=== PATIENT | male | born 1965 | race Two or more races ===

== ENCOUNTER 2020-12-17 23:44 | Emergency (ER) | payer SELFPAY ==
[~2020-12-17] VITALS: Ht 170.2 cm; Wt 64.4 kg
[2020-12-18] MEDS ORDERED: THIAMINE INJ 100 MG in SODIUM CHLORIDE 0.9% 1,000 ML IV ONE (02:30)
[2020-12-18] MEDS ORDERED: SODIUM CHLORIDE 0.9% 1,000 ML IV ONE (02:30)
[2020-12-18] MEDS ORDERED: THIAMINE 100mg/ml INJ (200mg/2ml VIAL) ONE (02:35)
[2020-12-18 03:29] LABS: Basophils # (auto) 0 10 ^3/uL (0-0.2); Eosinophils # (auto) 0 10 ^3/uL (0-0.8); Eosinophils % (auto) 0.1 % (0.0-7.0); Lymphocytes # (auto) 0.5 10 ^3/uL (0.4-5.4)
[2020-12-18 03:31] LABS: Basophils % (auto) 0.4 % (0.0-2.0); Hematocrit 45.6 % (41.0-53.0); Lymphocytes % (auto) 7.3 % (10.0-50.0); Mean Corpuscular Volume 103.1 fL (80.0-100.0); Monocytes # (auto) 0.7 10 ^3/uL (0-1.3); Monocytes % (auto) 9.3 % (0.0-12.0); Neutrophils % (auto) 82.9 % (37.0-80.0); Nucleated Red Blood Cells % 0.2 %; Platelet Count (auto) 94 10^3/uL (140-450); Red Blood Cells 4.43 10^6/uL (4.5-5.90); White Blood Cell 7.2 10^3/uL (4.4-10.8)
[2020-12-18 03:45] LABS: Urine Bacteria FEW /hpf (None Seen); Urine Blood Negative /uL (Negative); Urine Mucus FEW (None Seen); Urine Specific Gravity 1.036 (1.001-1.035); Urine WBC <1 /hpf (0 - 3)
[2020-12-18 03:57] LABS: Amphetamine Screen, Urine NEGATIVE (NEGATIVE); Barbiturate Scree,Urine NEGATIVE (NEGATIVE); Benzodiazephine Screen, Urine NEGATIVE (NEGATIVE); Cannabinoid Screen, Urine NEGATIVE (NEGATIVE); Cocaine Screen, Urine NEGATIVE (NEGATIVE); Opiate Scree,Urine NEGATIVE (NEGATIVE); Phencyclidine Screen, Urine NEGATIVE (NEGATIVE)
[2020-12-18 03:58] LABS: Albumin 3.6 g/dL (3.4-5.0); BUN/Creatinine Ratio 11.5; Magnesium 2.2 mg/dL (1.6-2.6); Potassium 4.1 mmol/L (3.5-5.1)
[2020-12-18 04:01] LABS: Bilirubin, Total 2.4 mg/dL (0.2-1.0); Total Protein 9.4 g/dL (6.4-8.2)
[2020-12-18 04:16] LABS: Salicylate < 1.7 mg/dL (2.8-20.0)
[2020-12-18 04:30] LABS: Acetaminophen < 2.0 ug/mL (10-30)
[2020-12-18] MEDS ORDERED: LORazepam 2MG/ML-1ML VIAL IV ONE (05:15)
[2020-12-18 06:00] VITALS: BP 110/74
== END 2020-12-18 06:46 | disposition home or self-care (01) ==
LOC: ER 23:44
DX: F10.232 Alcohol dependence with withdrawal with perceptual disturbance (principal); F10.229 Alcohol dependence with intoxication, unspecified; F10.20 Alcohol dependence, uncomplicated; K70.30 Alcoholic cirrhosis of liver without ascites
CPT/HCPCS: 36415; 80053; 80307; 80320; 80329; 81001; 83735; 85025; 96365; 99285; J2060; J3411; J7030

== ENCOUNTER 2024-07-10 10:43 | Emergency (ER) | payer MEDICAID, OTHER ==
[~2024-07-10] VITALS: Ht 157.5 cm; Wt 48.9 kg
[2024-07-10] MEDS: SODIUM CHLORIDE 0.9% 1,000 ML IV ONE ×2 (11:45→12:25)
[2024-07-10 11:46] LABS: Basophils # (auto) 0 10 ^3/uL (0-0.2); Basophils % (auto) 0.5 % (0.0-2.0); Eosinophils # (auto) 0.2 10 ^3/uL (0-0.8); Eosinophils % (auto) 3.2 % (0.0-7.0); Hematocrit 42.1 % (41.0-53.0); Hemoglobin 14.4 g/dL (13.5-17.5); Lymphocytes # (auto) 1.7 10 ^3/uL (0.4-5.4); Lymphocytes % (auto) 26.8 % (10.0-50.0); Mean Corpuscular Hemoglobin 34.6 pg (28.0-32.0); Mean Corpuscular Hgb Conc. 34.4 g/dL (32.0-36.0); Mean Corpuscular Volume 100.6 fL (80.0-100.0); Monocytes # (auto) 0.6 10 ^3/uL (0-1.3); Monocytes % (auto) 10.4 % (0.0-12.0); Neutrophils # (auto) 3.7 10 ^3/uL (1.6-8.6); Neutrophils % (auto) 59.1 % (37.0-80.0); Red Blood Cells 4.18 10^6/uL (4.5-5.90); Red Cell Distribution Width 13.9 % (11.8-14.3); White Blood Cell 6.2 10^3/uL (4.4-10.8)
[2024-07-10 11:50] LABS: Chloride 102 mmol/L (98-107); Potassium 4.3 mmol/L (3.5-5.1); Sodium 136 mmol/L (136-145)
[2024-07-10 11:51] LABS: Anion Gap 3 (5-15); Calcium 9.3 mg/dL (8.7-10.4); Carbon Dioxide 31 mmol/L (20-30)
[2024-07-10 11:56] LABS: BUN/Creatinine Ratio 14.5 (10.0-20.0); Blood Urea Nitrogen 11 mg/dL (9-23); Glucose 342 mg/dL (74-106)
[2024-07-10 12:51] VITALS: BP 183/101; PULSE 82; RESP 18; TEMP 98; O2SAT 98
[2024-07-10] MEDS: cloNIDine HCL 0.1 MG TAB PO ONE (12:58)
[2024-07-10] MEDS: InsuLIN REG 1unit/0.01ml Soln (100units/ml) IV ONE (13:23)
[2024-07-10] MEDS ORDERED: DOCUSATE SOD 100 MG CAP PO PRN (13:30)
[2024-07-10] MEDS ORDERED: chlordiazePOXIDE HCL 25 MG CAP PO SCH (13:30)
[2024-07-10] MEDS ORDERED: SODIUM CHLORIDE 0.9% 1,000 ML IV SCH (13:30)
[2024-07-10] MEDS ORDERED: MORPHINE SULFATE INJ 2 MG/ml SYRG IV PRN (13:30)
[2024-07-10] MEDS ORDERED: LORazepam 2MG/ML-1ML VIAL IV PRN ×4 (13:30→15:15)
[2024-07-10] MEDS ORDERED: ONDANSETRON HCL 4 MG/2 ML VIAL IV PRN (13:30)
[2024-07-10] MEDS ORDERED: DEXTROSE (50%) 50ML SYRG IV PRN (15:15)
[2024-07-10] MEDS ORDERED: ACCU-CHEK COMFORT CURVE STRIP VI SCH (17:00)
[2024-07-10] MEDS ORDERED: InsuLIN REG 1unit/0.01ml Soln (100units/ml) SC SCH (17:00)
[2024-07-11] MEDS ORDERED: GLIP5TAB21 PO (00:15)
[2024-07-11] MEDS ORDERED: METF-489 PO (00:15)
[2024-07-11] MEDS ORDERED: chlordiazePOXIDE HCL 25 MG CAP PO SCH (10:00)
[2024-07-12] MEDS ORDERED: chlordiazePOXIDE HCL 25 MG CAP PO SCH (10:00)
[2024-07-13] MEDS ORDERED: chlordiazePOXIDE HCL 25 MG CAP PO SCH (07:00)
== END 2024-07-10 15:04 | disposition left against medical advice (07) ==
LOC: ER 10:47
DX: K70.30 Alcoholic cirrhosis of liver without ascites (principal); R73.9 Hyperglycemia, unspecified; F10.90 Alcohol use, unspecified, uncomplicated; Y90.0 Blood alcohol level of less than 20 mg/100 ml
CPT/HCPCS: 36415; 80048; 80320; 82962; 83036; 83605; 83690; 84478; 85025; 96361; 96374; 99283; J1815; J7030

== ENCOUNTER 2024-07-10 19:16 | Emergency (ER) | payer MEDICAID ==
[~2024-07-10] VITALS: Ht 152.4 cm; Wt 50.4 kg
[2024-07-10 20:32] LABS: Urine Bacteria FEW /hpf (None Seen); Urine Blood TRACE /uL (Negative); Urine Budding Yeast FEW /hpf (None Seen); Urine Clarity Turbid (Clear); Urine Color Colorless (Yellow); Urine Mucus FEW (None Seen); Urine Protein, UAD Negative (Negative); Urine Specific Gravity 1.021 (1.001-1.035); Urine Urobilinogen Normal (Negative); Urine WBC 11 /hpf (0 - 3); Urine pH 6.5 (5.0-9.0)
[2024-07-10 21:17] LABS: Basophils # (auto) 0 10 ^3/uL (0-0.2); Hemoglobin 13.8 g/dL (13.5-17.5); Lymphocytes # (auto) 1.3 10 ^3/uL (0.4-5.4); Mean Corpuscular Hemoglobin 34.7 pg (28.0-32.0); Monocytes # (auto) 0.5 10 ^3/uL (0-1.3); Neutrophils # (auto) 3.6 10 ^3/uL (1.6-8.6); Red Blood Cells 3.98 10^6/uL (4.5-5.90); White Blood Cell 5.5 10^3/uL (4.4-10.8)
[2024-07-10 21:20] LABS: Basophils % (auto) 0.5 % (0.0-2.0); Eosinophils # (auto) 0.2 10 ^3/uL (0-0.8); Eosinophils % (auto) 2.9 % (0.0-7.0); Hematocrit 40.1 % (41.0-53.0); Lymphocytes % (auto) 22.6 % (10.0-50.0); Mean Corpuscular Hgb Conc. 34.5 g/dL (32.0-36.0); Mean Corpuscular Volume 100.7 fL (80.0-100.0); Monocytes % (auto) 9.2 % (0.0-12.0); Neutrophils % (auto) 64.8 % (37.0-80.0); Nucleated Red Blood Cells % 0.2 %; Red Cell Distribution Width 13.7 % (11.8-14.3)
[2024-07-10 21:29] VITALS: BP 153/68; PULSE 64; RESP 16; TEMP 98.5; O2SAT 98
[2024-07-10] MEDS: SODIUM CHLORIDE 0.9% 1,000 ML IV ONE (21:37)
[2024-07-10 21:52] LABS: Alanine Aminotransferase 65 U/L (7-40); Albumin 3.1 g/dL (3.2-4.8); Alkaline Phosphatase 227 U/L (46-116); Anion Gap 5 (5-15); Aspartate Aminotransferase 61 U/L (13-40); BUN/Creatinine Ratio 10.2 (10.0-20.0); Bilirubin, Total 1.7 mg/dL (0.2-1.0); Blood Urea Nitrogen 9 mg/dL (9-23); Calcium 8.7 mg/dL (8.7-10.4); Carbon Dioxide 28 mmol/L (20-30); Chloride 103 mmol/L (98-107); Potassium 4.4 mmol/L (3.5-5.1); Sodium 136 mmol/L (136-145); Total Protein 6.2 g/dL (5.7-8.2)
[2024-07-10 21:55] LABS: Glucose 432 mg/dL (74-106)
[2024-07-10] MEDS: InsuLIN REG 1unit/0.01ml Soln (100units/ml) SC ONE (22:25)
[2024-07-11] MEDS ORDERED: METF-489 PO (00:15)
[2024-07-11] MEDS ORDERED: GLIP5TAB21 PO (00:15)
== END 2024-07-11 00:29 | disposition home or self-care (01) ==
LOC: ER 19:16
DX: R73.9 Hyperglycemia, unspecified (principal)
CPT/HCPCS: 36415; 80053; 81001; 82962; 85025; 96360; 99283; J1815; J7030

== ENCOUNTER 2024-10-28 13:42 | Inpatient (IN) | payer MEDICAID ==
[~2024-10-28] VITALS: Ht 162.6 cm; Wt 52.7 kg
[~2024-10-28 13:42] MED LIST: GLIP5TAB21 PO; METF-489 PO
--- NOTE | 2024-10-28 14:18 | ED.PDOC ---
Altered Mental Status HPI Comments 59 Y M KAY presents to the ED with a CC of ALOC. As per EMS patient was brought in from [facility] due to family concern but according to staff patient is at baseline. EMS states that family relays that patient does not act this way and is usually AxO4 however, he cannot recognize or remember daughters name. In route, patient's BS on the glucometer read 124 and VS were stable. Patient is AxO0 and noncommunicative but opens eyes to commands. Per EMS family mentioned that patient has had an episode like this before due to hyperammonemia. Chief Complaint: ALOC Time Seen by MD: 14:04 Reviewed Notes: Nurses Notes, Medications, Allergies Allergies: Coded Allergies: NO KNOWN ALLERGIES (Unverified , 07/10/24) Home Meds Active Scripts Glipizide (Glipizide) 5 Mg Tab, 1 TAB PO DAILY, #90 TAB 3 Refills Prov:NIKOLAS MACIAS 07/11/24 Metformin Hydrochloride (METFORMIN HCL ER) 500 Mg Tab, 1 TAB PO DAILY, #90 TAB 1 Refill Prov:NIKOLAS MACIAS 07/11/24 Information Source: Patient, Emergency Med Personnel Mode of Arrival: EMS Severity: Moderate Timing: Hours Duration: Since onset Quality: Decreased Alertness, Change in Behavior, Confusion Past Medical History PAST MEDICAL HISTORY: Liver Surgical History: Denies all surgeries Family History Family History: Reviewed,noncontributory to illness, Unknown Social History Smoker: Non-Smoker Alcohol: Heavy Drugs: Denies Drug Use Lives In: Home Constitutional: denies: chills, diaphoresis, fatigue, fever, malaise, sweats, weakness, others EENTM: denies: blurred vision, double vision, ear bleeding, ear discharge, ear drainage, ear pain, ear ringing, eye pain, eye redness, hearing loss, mouth pain, mouth swelling, nasal discharge, nose bleeding, nose congestion, nose pain, photophobia, tearing, throat pain, throat swelling, voice changes, others Respiratory: denies: cough, hemoptysis, orthopnea, SOB at rest, shortness of breath, SOB with excertion, stridor, wheezing, others Cardiovascular: denies: chest pain, dizzy spells, diaphoresis, Dyspnea on exertion, edema, irregular heart beat, left arm pain, lightheadedness, palpitations, PND, syncope, others Gastrointestinal: denies: abdomen distended, abdominal pain, blood streaked bowels, constipated, diarrhea, dysphagia, difficulty swallowing, hematemesis, melena, nausea, poor appetite, poor fluid intake, rectal bleeding, rectal pain, vomiting, others Genitourinary: denies: burning, dysuria, flank pain, frequency, hematuria, incontinence, penile discharge, penile sore, pain, testicle pain, testicle swelling, urgency, others Neurological: denies: dizziness, fainting, headache, left sided numbness, left sided weakness, numbness, paresthesia, pre-existing deficit, right sided numbness, right sided weakness, seizure, speech problems, tingling, tremors, weakness, others Musculoskeletal: denies: back pain, gout, joint pain, joint swelling, muscle pain, muscle stiffness, neck pain, others Integumetry: denies: bruises, change in color, change in hair/nails, dryness, laceration, lesions, lumps, rash, wounds, others Allergic/Immunocompromised: denies: Difficulty Healing, Frequent Infections, Hives, Itching, others Hematologic/Lymphatic: denies: anemia, blood clots, easy bleeding, easy bruising, swollen glands, others Endocrine: denies: excessive hunger, excessive sweating, excessive thirst, excessive urination, flushing, intolerance to cold, intolerance to heat, unexplained weight gain, unexplained weight loss, others Psychiatric: denies: anxiety, bipolar disorder, depression, hopeless, panic disorder, schizophrenia, sleepless, suicidal, others Unable to Obtain due to: Altered Mental Status All Other Systems: Reviewed and Negative Physical Exam General Appearance: No Apparent Distress, Normal HEENT: Normal ENT Inspection, Pharynx Normal, TMs Normal Neck: Full Range of Motion, Non-Tender, Normal, Normal Inspection Respiratory: Chest Non-Tender, Lungs Clear, No Accessory Muscle Use, No Respiratory Distress, Normal Breath Sounds Cardiovascular: No Edema, No JVD, No Murmur, No Gallop, Normal Peripheral Pulses, Regular Rate/Rhythm Breast Exam: Deferred Gastrointestinal: No Organomegaly, Non Tender, No Pulsatile Mass, Normal Bowel Sounds, Soft Genitalia: Deferred Pelvic: Deferred Rectal: Deferred Extremities: No calf tenderness, Normal capillary refill, Normal inspection, Normal range of motion, Non-tender, No pedal edema Musculoskeletal : Apperance: Normal Neurologic: Alert, wheel blocker II-XII 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 Was a procedure done?: No Differential Diagnosis (ALOC) Differential Diagnosis: Hypoglycemia, Sepsis, Other (Hyperammonemia) X-Ray, Labs, Meds, VS Vital Signs Date Time Temp Pulse Resp B/P (MAP) Pulse Ox O2 Delivery O2 Flow Rate FiO2 10/28/24 14:27 93 Lab Test 10/28/24 15:36 10/28/24 14:33 Range/Units Troponin I High Sensitivity Pending 13 </=54 ng/L White Blood Count 6.6 4.4-10.8 10^3/uL Red Blood Count 3.17 L 4.5-5.90 10^6/uL Hemoglobin 10.6 L 13.5-17.5 g/dL Hematocrit 30.9 L 41.0-53.0 % Mean Corpuscular Volume 97.4 80.0-100.0 fL Mean Corpuscular Hemoglobin 33.4 H 28.0-32.0 pg Mean Corpuscular Hemoglobin Concent 34.3 32.0-36.0 g/dL Red Cell Distribution Width 15.6 H 11.8-14.3 % Platelet Count 109 L 140-450 10^3/uL Mean Platelet Volume 8.6 6.9-10.8 fL Neutrophils (%) (Auto) 56.1 37.0-80.0 % Lymphocytes (%) (Auto) 26.0 10.0-50.0 % Monocytes (%) (Auto) 14.0 H 0.0-12.0 % Eosinophils (%) (Auto) 3.4 0.0-7.0 % Basophils (%) (Auto) 0.5 0.0-2.0 % Neutrophils # (Auto) 3.7 1.6-8.6 10 ^3/uL Lymphocytes # (Auto) 1.7 0.4-5.4 10 ^3/uL Monocytes # (Auto) 0.9 0-1.3 10 ^3/uL Eosinophils # (Auto) 0.2 0-0.8 10 ^3/uL Basophils # (Auto) 0 0-0.2 10 ^3/uL Nucleated Red Blood Cells 0.0 % Sodium Level 142 136-145 mmol/L Potassium Level 3.8 3.5-5.1 mmol/L Chloride Level 106 98-107 mmol/L Carbon Dioxide Level 21 20-31 mmol/L Anion Gap 15 5-15 Blood Urea Nitrogen 24 H 9-23 mg/dL Creatinine 1.14 0.700-1.30 mg/dL Glomerular Filtration Rate Calc 74 >90 mL/min BUN/Creatinine Ratio 21.1 H 10.0-20.0 Serum Glucose 117 H 74-106 mg/dL Calcium Level 10.1 8.7-10.4 mg/dL Total Bilirubin 1.4 H 0.2-1.0 mg/dL Aspartate Amino Transferase (AST) 66 H 13-40 U/L Alanine Aminotransferase (ALT) 55 H 7-40 U/L Alkaline Phosphatase 243 H 46-116 U/L Ammonia 202 *H 11-32 umol/L Total Protein 6.6 5.7-8.2 g/dL Albumin 3.3 3.2-4.8 g/dL Plasma/Serum Blood Alcohol < 3.0 <10 mg/dL Chest XR: FINDINGS: Lines and Tubes: None Lungs: No focal consolidation. Mild elevation of the left hemidiaphragm. Pleura: No effusion. No pneumothorax. Cardiomediastinal contours: Unremarkable Bones: No acute osseous abnormality. IMPRESSION: No acute cardiopulmonary disease. CT Head: Findings: Normal brain volume and formation. Mild chronic small vessel ischemic changes. No hemorrhages, masses, mass effect, midline shift, herniation or cytotoxic edema following a large vascular territory. No intra-axial or extra-axial fluid collections. No evidence of hydrocephalus. The basal cisterns are patent. The pituitary gland, sella and parasellar regions are unremarkable. The cerebellar tonsils are in normal position. The cerebellum is unremarkable. The orbits and globes are unremarkable. Minimal mucoperiosteal thickening of the inferior frontal sinuses and ethmoid air cells. Otherwise, the paranasal sinuses and mastoids are clear. There are no worrisome calvarial lesions. Impression: No evidence of acute intracranial abnormality. Images Reviewed?: Images reviewed and evaluated by me (Remains encephalopathic. Treatment inititated. ) Time of 1ST Reevaluation: 15:04 Reevaluation 1ST: Unchanged Patient Education/Counseling: Diagnosis, Treatment, Pt Unresponsive Family Education/Counseling: No Family Present Departure 1 Departure Time of Disposition: 15:52 Impression: Primary Impression: Hepatic encephalopathy Disposition: 09 ADMITTED INPATIENT Admit to: Tele Condition: Fair Critical Care Note Critical Care Time?: Yes (35 min-critical care time only) Critical care comment: CRITICAL CARE TIME: *35* minutes Treatments/Evaluations: Close monitoring and treatment of unstable vital signs, cardiorespiratory, and neurologic status, while maintaining tight balance of fluid, respiratory, and cardiac interventions. This time includes discussing the case with the patient and the patients family. This time does not include all procedures stated elsewhere in this record. This time also includes reviewing old records, labs and radiological studies. This time includes examining and re-examining the patient. Additionally, this time also includes arranging care with admitting and consulting physicians. Stability Stability form required: No Heart Score Heart Score: Heart Score Response (Comments) Value History N/A 0 EKG N/A 0 Age N/A 0 Risk Factors N/A 0 Troponin N/A 0 Total 0 I personally scribed for LUCIANO ULLOA MD ([email or web address]) on 10/28/24 at 14:18. Electronically submitted by Kassie Grant ([email or web address]). I personally scribed for LUCIANO ULLOA MD ([email or web address]) on 10/28/24 at 14:20. Electronically submitted by Kassie Grant ([email or web address]). I personally scribed for LUCIANO ULLOA MD ([email or web address]) on 10/28/24 at 14:48. Electronically submitted by Finn Raphael ([email or web address]). LUCIANO ULLOA MD Oct 28, 2024 14:18
--- NOTE | 2024-10-28 14:37 | DVH ---
Procedure: CT HEAD WITHOUT CONTRAST Study Date and Requested Time: 10/28/2024 02:11 PM History: ams Comparison: None Dose: CTDI: 52.19 mGy DLP: 924.28 mGycm Technique: Multiplanar images obtained through the brain without intravenous contrast. Findings: Normal brain volume and formation. Mild chronic small vessel ischemic changes. No hemorrhages, masses, mass effect, midline shift, herniation or cytotoxic edema following a large v ascular territory. No intra-axial or extra-axial fluid collections. No evidence of hydrocephalus. The basal cisterns are patent. The pituitary gland, sella and parasellar regions are unremarkable. The cerebellar tonsils are in nor mal position. The cerebellum is unremarkable. The orbits and globes are unremarkable. Minimal mucoperiosteal thickening of the inferior frontal sin uses and ethmoid air cells. Otherwise, the paranasal sinuses and mastoids are clear. There are no wo rrisome calvarial lesions. Impression: No evidence of acute intracranial abnormality.
--- NOTE | 2024-10-28 14:38 | DVH ---
CHEST RADIOGRAPH Indication: cp Technique: Single frontal view of the chest was obtained Comparison: None FINDINGS: Lines and Tubes: None Lungs: No focal consolidation. Mild elevation of the left hemidiaphragm. Pleura: No effusion. No pneumothorax. Cardiomediastinal contours: Unremarkable Bones: No acute osseous abnormality. IMPRESSION: No acute cardiopulmonary disease.
[2024-10-28 14:52] LABS: Basophils # (auto) 0 10 ^3/uL (0-0.2); Basophils % (auto) 0.5 % (0.0-2.0); Eosinophils # (auto) 0.2 10 ^3/uL (0-0.8); Eosinophils % (auto) 3.4 % (0.0-7.0); Hematocrit 30.9 % (41.0-53.0); Hemoglobin 10.6 g/dL (13.5-17.5); Lymphocytes # (auto) 1.7 10 ^3/uL (0.4-5.4); Mean Corpuscular Hemoglobin 33.4 pg (28.0-32.0); Mean Corpuscular Hgb Conc. 34.3 g/dL (32.0-36.0); Mean Corpuscular Volume 97.4 fL (80.0-100.0); Monocytes # (auto) 0.9 10 ^3/uL (0-1.3); Neutrophils # (auto) 3.7 10 ^3/uL (1.6-8.6); Neutrophils % (auto) 56.1 % (37.0-80.0); Platelet Count (auto) 109 10^3/uL (140-450); Red Blood Cells 3.17 10^6/uL (4.5-5.90); Red Cell Distribution Width 15.6 % (11.8-14.3); White Blood Cell 6.6 10^3/uL (4.4-10.8)
[2024-10-28 15:10] LABS: Albumin 3.3 g/dL (3.2-4.8); Anion Gap 15 (5-15); BUN/Creatinine Ratio 21.1 (10.0-20.0); Calcium 10.1 mg/dL (8.7-10.4); Carbon Dioxide 21 mmol/L (20-31); Chloride 106 mmol/L (98-107); Potassium 3.8 mmol/L (3.5-5.1); Sodium 142 mmol/L (136-145); Total Protein 6.6 g/dL (5.7-8.2)
[2024-10-28 15:11] LABS: Alanine Aminotransferase 55 U/L (7-40); Alkaline Phosphatase 243 U/L (46-116); Aspartate Aminotransferase 66 U/L (13-40); Bilirubin, Total 1.4 mg/dL (0.2-1.0); Blood Alcohol < 3.0 mg/dL (<10); Blood Urea Nitrogen 24 mg/dL (9-23); Glucose 117 mg/dL (74-106)
[2024-10-28] MEDS ORDERED: IBUPROFEN 400 MG TAB PO PRN ×2 (16:45→17:00)
[2024-10-28] MEDS ORDERED: ONDANSETRON HCL 4 MG/2 ML VIAL IV PRN ×2 (16:45→17:00)
[2024-10-28] MEDS ORDERED: LACTATED RINGER'S 1,000 ML IV SCH (16:45)
[2024-10-28] MEDS ORDERED: DEXTROSE (50%) 50ML SYRG IV PRN ×2 (16:45→17:00)
[2024-10-28] MEDS ORDERED: DOCUSATE SOD 100 MG CAP PO PRN ×2 (16:45→17:00)
[2024-10-28] MEDS ORDERED: HYDROcodone-ACET 5/325MG TAB PO PRN ×2 (16:45→17:00)
[2024-10-28] MEDS ORDERED: NITROGLYCERIN 0.4 MG SL TAB SL PRN ×2 (16:45→17:00)
[2024-10-28] MEDS ORDERED: MORPHINE SULFATE INJ 2 MG/ml SYRG IV PRN ×2 (16:45→17:00)
[2024-10-28] MEDS ORDERED: ACCU-CHEK COMFORT CURVE STRIP VI SCH (17:00)
[2024-10-28] MEDS: LACTATED RINGER'S 1,000 ML IV SCH (17:00)
[2024-10-28] MEDS ORDERED: InsuLIN REG 1unit/0.01ml Soln (100units/ml) SC SCH (17:00)
[2024-10-28] MEDS: LACTULOSE 20Gm/30ML SOLN PO ONE (17:04)
[2024-10-28] MEDS: LACTULOSE 10g/15ml SOLN 473ML PR ONE (17:05)
--- NOTE | 2024-10-28 17:16 | DVHHP2 ---
History of Present Illness Reason for Visit: Hepatic encephalopathy History of Present Illness Patient is a 59-year-old male with past medical history of liver disease, DM, hyperlipidemia, and hypertension who presented to [facility] ED for evaluation of altered level of consciousness. As reported by EMS, patient was brought from [facility] due to family concern in sudden change of patient's condition. Patient could not recognize remember daughter's name, getting worse that prompted this visit. Patient was seen and evaluated in the ED, laboratory data shows WBC 6.6, hemoglobin 10.6, hematocrit 30.9, platelets 109, sodium 142, potassium 3.8, BUN 24, creatinine 1.14, GFR 74, glucose 117, AST 66, ALT 55, troponin 12, ammonia 202. Head CT showed no evidence of acute intracranial abnormality. Patient was started on rectal lactulose, please see medication orders section in the computer. On my assessment, patient remains altered, no diaphoresis, no shortness of breath, no diarrhea, no vomiting, no fever, no chills. Patient was admitted for further evaluation and medical management. Past Medical History Liver please, DM, HLD, HTN, EtOH. Past Surgical History Denies all surgeries Family History Reviewed, noncontributory to the management of this case. Past Social History Patient lives in [facility], no history of smoking, heavy alcohol drinker, no illicit drugs abuse on file. Review of Systems Constitutional: Yes: Weakness; No: Fever, Chills, Sweats, Malaise, Other Eyes: No: Pain, Vision change, Conjunctivae inflammation, Eyelid inflammation, Other, Redness ENT: No: Ear pain, Ear discharge, Nose pain, Nose discharge, Nose congestion, Mouth pain, Mouth swelling, Throat pain, Throat swelling, Other Respiratory: No: Cough, Dry, Shortness of breath, SOB with excertion, Wheezing, Hemoptysis, Pleuritic Pain, Sputum, Wheezing, Other Cardiovascular: No: Chest Pain, Palpitations, Orthopnea, Paroxysmal Noc. Dyspnea, Edema, Lt Headedness, Other Gastrointestinal: No: Nausea, Vomiting, Abdominal Pain, Diarrhea, Constipation, Melena, Hematochezia, Other Genitourinary: No Dysuria, No Frequency, No Incontinence, No Hematuria, No Retention, No Other Musculoskeletal: No: other, neck pain, shoulder pain, arm pain, back pain, hand pain, leg pain, foot pain Skin: No: Rash, Lesions, Jaundice, Bruising, Other Neurological: Other (Altered level of consciousness); No: Weakness, Numbness, Incoordination, Change in speech, Confusion, Seizures Allergies: Coded Allergies: NO KNOWN ALLERGIES (Unverified , 07/10/24) Exam Vital Signs Vital Signs Date Time Temp Pulse Resp B/P (MAP) Pulse Ox O2 Delivery O2 Flow Rate FiO2 10/28/24 14:27 93 10/28/24 13:45 98.9 16 116/78 (91) 96 General Appearance: Alert, Cooperative, No acute distress HEENT: Atraumatic, PERRLA, EOMI, Mucous membr. moist/pink Respiratory: Clear to auscultation, Normal air movement Cardiovascular: Regular rate, Normal S1, Normal S2, No murmurs Abdominal: Normal bowel sounds, Soft, No tenderness, No hepatospenomegaly Extremities: No clubbing, No cyanosis, No edema, Normal pulses, No tenderness/swelling Skin: No rashes, No breakdown, No significant lesion Neuro: Normal speech, Normal tone, Sensation intact, Cranial nerves 3-12 NL, Reflexes 2+, Other (Generalized weakness) Psych/Mental Status: Mood NL, Other (Altered mental status) Labs/Xrays Labs Test 10/28/24 15:36 10/28/24 14:33 Range/Units Troponin I High Sensitivity 12 </=54 ng/L White Blood Count 6.6 4.4-10.8 10^3/uL Red Blood Count 3.17 L 4.5-5.90 10^6/uL Hemoglobin 10.6 L 13.5-17.5 g/dL Hematocrit 30.9 L 41.0-53.0 % Mean Corpuscular Volume 97.4 80.0-100.0 fL Mean Corpuscular Hemoglobin 33.4 H 28.0-32.0 pg Mean Corpuscular Hemoglobin Concent 34.3 32.0-36.0 g/dL Red Cell Distribution Width 15.6 H 11.8-14.3 % Platelet Count 109 L 140-450 10^3/uL Mean Platelet Volume 8.6 6.9-10.8 fL Neutrophils (%) (Auto) 56.1 37.0-80.0 % Lymphocytes (%) (Auto) 26.0 10.0-50.0 % Monocytes (%) (Auto) 14.0 H 0.0-12.0 % Eosinophils (%) (Auto) 3.4 0.0-7.0 % Basophils (%) (Auto) 0.5 0.0-2.0 % Neutrophils # (Auto) 3.7 1.6-8.6 10 ^3/uL Lymphocytes # (Auto) 1.7 0.4-5.4 10 ^3/uL Monocytes # (Auto) 0.9 0-1.3 10 ^3/uL Eosinophils # (Auto) 0.2 0-0.8 10 ^3/uL Basophils # (Auto) 0 0-0.2 10 ^3/uL Nucleated Red Blood Cells 0.0 % Sodium Level 142 136-145 mmol/L Potassium Level 3.8 3.5-5.1 mmol/L Chloride Level 106 98-107 mmol/L Carbon Dioxide Level 21 20-31 mmol/L Anion Gap 15 5-15 Blood Urea Nitrogen 24 H 9-23 mg/dL Creatinine 1.14 0.700-1.30 mg/dL Glomerular Filtration Rate Calc 74 >90 mL/min BUN/Creatinine Ratio 21.1 H 10.0-20.0 Serum Glucose 117 H 74-106 mg/dL Calcium Level 10.1 8.7-10.4 mg/dL Total Bilirubin 1.4 H 0.2-1.0 mg/dL Aspartate Amino Transferase (AST) 66 H 13-40 U/L Alanine Aminotransferase (ALT) 55 H 7-40 U/L Alkaline Phosphatase 243 H 46-116 U/L Ammonia 202 *H 11-32 umol/L Total Protein 6.6 5.7-8.2 g/dL Albumin 3.3 3.2-4.8 g/dL Plasma/Serum Blood Alcohol < 3.0 <10 mg/dL PATIENT: ILIANA LARES ACCT: [id number] UNIT: [id number] : 1965 LOC: ER ROOM / BED: / AGE / SEX: 59 / M ADM STATUS: REG ER SERVICE 1405 ORDERING PHYSICIAN: LUCIANO ULLOA MD PROCEDURE(s): HWOCT - HEAD WITHOUT CONTRAST REASON: [facility] ORDER NUMBER(s): [id number], ACCESSION NUMBER(s): [id number] Procedure: CT HEAD WITHOUT CONTRAST Study Date and Requested Time: 10/28/2024 02:11 PM History: ams Comparison: None Dose: CTDI: 52.19 mGy DLP: 924.28 mGycm Technique: Multiplanar images obtained through the brain without intravenous contrast. Findings: Normal brain volume and formation. Mild chronic small vessel ischemic changes. No hemorrhages, masses, mass effect, midline shift, herniation or cytotoxic edema following a large vascular territory. No intra-axial or extra-axial fluid collections. No evidence of hydrocephalus. The basal cisterns are patent. The pituitary gland, sella and parasellar regions are unremarkable. The ce rebellar tonsils are in normal position. The cerebellum is unremarkable. The orbits and globes are unremarkable. Minimal mucoperiosteal thickening of the inferior frontal sinuses and ethmoid air cells. Otherwise, the paranasal sinuses and mastoids are clear. There are no worrisome calvarial lesions. Impression: No evidence of acute intracranial abnormality. ORDERING PHYSICIAN: LUCIANO ULLOA MD PROCEDURE(s): CXRP - CHEST PORTABLE REASON: cp ORDER NUMBER(s): [id number], ACCESSION NUMBER(s): [id number] CHEST RADIOGRAPH Indication: cp Technique: Single frontal view of the chest was obtained Comparison: None FINDINGS: Lines and Tubes: None Lungs: No focal consolidation. Mild elevation of the left hemidiaphragm. Pleura: No effusion. No pneumothorax. Cardiomediastinal contours: Unremarkable Bones: No acute osseous abnormality. IMPRESSION: No acute cardiopulmonary disease. Assessment/Plan Assessment/Plan Hepatic encephalopathy Elevated liver enzymes Dehydration Generalized weakness Plan 1. Admit to telemetry unit 2. Breathing treatment 3. Pain control management 4. Management of fluids and electrolytes 5. Consultation for GI/hospitalist 6. Diagnostic tests head CT 7. DVT prophylaxis on SCDs 8. Repeat labs CBC, CMP in a.m. 9. Continue with current medical management 10. Treatment plan discussed with patient and RN. Patient verbalized understanding. Plan discussed with: Patient, Other (RN) My Orders Orders - SAM AVILES DNP Procedure Category Date Status Time Consistent DIET 10/28/24 Verified Carb(Ccho)Diabetes Dinner Lactulose Rectal PHA 10/28/24 Verified 18:00 Spironolactone PHA 10/29/24 Verified (Aldactone) 10:00 * [facility] Radiology Resident CONS 10/28/24 Verified 16:36 Famotidine Injection PHA 10/29/24 Verified (Pepcid Injection) 10:00 B-Complex W/ C & PHA 10/29/24 Verified Folic Tablet 10:00 Lactated Ringers Lr PHA 10/28/24 Verified 16:45 Ibuprofen Tablet PHA 10/28/24 Verified (Motrin Tablet) 16:45 Glucose Blood PHA 10/28/24 Verified (Accu-Chek Comfort 17:00 Mild Sliding Scale PHA 10/28/24 Verified 17:00 Dextrose 50% Syringe PHA 10/28/24 Verified 16:45 Admit ADMIT 10/28/24 Verified 16:36 Allergies TSERING 10/28/24 Verified 16:36 Code Status CODE 10/28/24 Verified 16:36 Oxygen Per Hour RT 10/28/24 Verified 16:36 Hydrocodone-Acet PHA 10/28/24 Verified 5/325mg Tab ([place] 16:45 Ondansetron Hcl PHA 10/28/24 Verified (Zofran) 16:45 Docusate Sodium PHA 10/28/24 Verified Capsule (Colace 16:45 Fall Risk Precautions [facility] 10/28/[address] 16:36 Complete Blood Count LAB 10/29/24 Verified 04:00 Comprehensive LAB 10/29/24 Verified Metabolic Panel 04:00 Condition: Serious TSERING 10/28/24 Verified 16:36 Sequential [facility] 10/28/24 Verified Compression Device Nitroglycerin [facility] 10/28/24 Verified Sublingual (Ntrostat 16:45 Morphine Sulfate PHA 10/28/24 Verified Injection 16:45 Notify Md Of Changes [facility] 10/28/24 Verified From Base 16:36 Pulpwood Cutter For [facility] 10/28/24 Verified 24 Hours 16:36 Emergency Dysrhythmia [facility] 10/28/24 Verified Protocol 16:36 Rhythm Strips Once [facility] 10/28/24 Verified Every Shift 16:36 Oxygen By Nasal RT 10/28/24 Verified Cannula 16:36 Problem List: (1) Hepatic encephalopathy (2) Elevated liver enzymes (3) Dehydration (4) Generalized weakness Date of Service: Oct 28, 2024 Billing Provider: SAM AVILES DNP Common Visit Codes: [id number] INP/OBS CARE (HIGH) SAM AVILES DNP Oct 28, 2024 17:16
[2024-10-28] MEDS: LACTULOSE 10g/15ml SOLN 473ML PR SCH (18:00)
[2024-10-28] MEDS ORDERED: LACTULOSE 10g/15ml SOLN 473ML PR SCH (18:00)
--- NOTE | 2024-10-28 18:09 | ECG ---
[facility] Test Date: 2024-10-28 Test Time: 14:27:54 Pat Name: ILIANA LARES Department: ER Room: [address] [place] [address] Gender: M Grip: SHARA : 1965 Requested By: LUCIANO ULLOA Order Number: [id number] Reading MD: Ed Saba Measurements Intervals [place] Rate: 93 P: 56 SD: 173 QRS: 36 QRSD: 107 T: 3 QT: 423 QTc: 527 Interpretive Statements Sinus rhythm Abnormal R-wave progression, early transition Nonspecific T abnormalities, anterior leads Prolonged QT interval Electronically Signed On 10-29-2024 16:24:43 PST by Ed Saba Please click the below link to view image of tracing.
[2024-10-28 18:46] VITALS: PULSE 80; RESP 10; O2SAT 97
[2024-10-28 19:20] VITALS: PULSE 83; RESP 11; O2SAT 97
[2024-10-28] MEDS: ACCU-CHEK COMFORT CURVE STRIP VI SCH (22:12)
[2024-10-28] MEDS: InsuLIN REG 1unit/0.01ml Soln (100units/ml) SC SCH (22:19)
[2024-10-29 04:22] LABS: Basophils # (auto) 0 10 ^3/uL (0-0.2); Basophils % (auto) 0.4 % (0.0-2.0); Eosinophils # (auto) 0.1 10 ^3/uL (0-0.8); Eosinophils % (auto) 1.8 % (0.0-7.0); Hematocrit 32.8 % (41.0-53.0); Hemoglobin 11.5 g/dL (13.5-17.5); Lymphocytes # (auto) 1.9 10 ^3/uL (0.4-5.4); Lymphocytes % (auto) 24.5 % (10.0-50.0); Mean Corpuscular Hemoglobin 33.7 pg (28.0-32.0); Mean Corpuscular Hgb Conc. 35.2 g/dL (32.0-36.0); Mean Corpuscular Volume 95.8 fL (80.0-100.0); Monocytes % (auto) 12.4 % (0.0-12.0); Neutrophils # (auto) 4.8 10 ^3/uL (1.6-8.6); Neutrophils % (auto) 60.9 % (37.0-80.0); Nucleated Red Blood Cells % 0.1 %; Platelet Count (auto) 120 10^3/uL (140-450); Red Blood Cells 3.42 10^6/uL (4.5-5.90); Red Cell Distribution Width 15.4 % (11.8-14.3); White Blood Cell 7.9 10^3/uL (4.4-10.8)
[2024-10-29 04:29] LABS: Albumin 3.5 g/dL (3.2-4.8); Anion Gap 14 (5-15); BUN/Creatinine Ratio 19.8 (10.0-20.0); Blood Urea Nitrogen 21 mg/dL (9-23); Carbon Dioxide 23 mmol/L (20-31); Potassium 3.6 mmol/L (3.5-5.1); Sodium 144 mmol/L (136-145); Total Protein 7.1 g/dL (5.7-8.2)
[2024-10-29 04:34] LABS: Alanine Aminotransferase 57 U/L (7-40); Alkaline Phosphatase 258 U/L (46-116); Aspartate Aminotransferase 64 U/L (13-40); Bilirubin, Total 1.4 mg/dL (0.2-1.0); Calcium 10.5 mg/dL (8.7-10.4); Chloride 107 mmol/L (98-107); Glucose 72 mg/dL (74-106)
[2024-10-29 07:22] VITALS: PULSE 99; RESP 16; O2SAT 98
[2024-10-29] MEDS ORDERED: B-COMPLEX W/ C & FOLIC ACID(NEPHROVITE TAB) PO SCH (10:00)
[2024-10-29] MEDS ORDERED: FAMOTIDINE (10MG/ML) 2ML VL IV SCH (10:00)
[2024-10-29] MEDS ORDERED: SPIRONOLACTONE 25 MG TAB PO SCH (10:00)
[2024-10-29] MEDS: SPIRONOLACTONE 25 MG TAB PO SCH (10:56)
[2024-10-29] MEDS: B-COMPLEX W/ C & FOLIC ACID(NEPHROVITE TAB) PO SCH (10:56)
[2024-10-29] MEDS: FAMOTIDINE (10MG/ML) 2ML VL IV SCH (10:56)
--- NOTE | 2024-10-29 15:04 | DVHPN2 ---
Reviewed: Care Plan, H&P, Labs, Medications, Previous Orders, Radiology Changes from previous H/P or p: No Changes Eyes: No Pain, No Vision change, No Conjunctivae inflammation, No Eyelid inflammation, No Other, No Redness ENT: No Ear pain, No Ear discharge, No Nose pain, No Nose discharge, No Nose congestion, No Mouth pain, No Mouth swelling, No Throat pain, No Throat swelling, No Other Cardiovascular: No Chest Pain, No Palpitations, No Orthopnea, No Paroxysmal Noc. Dyspnea, No Edema, No Lt Headedness, No Other Respiratory: No Cough, No Dry, No Shortness of breath, No SOB with excertion, No Wheezing, No Hemoptysis, No Pleuritic Pain, No Sputum, No Other Gastrointestinal: No Nausea, No Vomiting, No Abdominal Pain, No Diarrhea, No Constipation, No Melena, No Hematochezia, No Other Genitourinary: No Dysuria, No Frequency, No Incontinence, No Hematuria, No Retention, No Other Musculoskeletal: No other, No neck pain, No shoulder pain, No arm pain, No back pain, No hand pain, No leg pain, No foot pain Skin: No Rash, No Lesions, No Jaundice, No Bruising, No Other Objective Vitals Vital Signs Date Time Temp Pulse Resp B/P (MAP) Pulse Ox O2 Delivery O2 Flow Rate FiO2 10/29/24 08:00 100 10/29/24 07:22 97.6 13 135/77 (96) 98 97.6 10/29/24 07:22 Room Air* 0 21 Intake/Output Intake and Output 10/29/24 07:00 Intake Total 650 ml Output Total 400 ml Balance 250 ml Intake IV Total 650 ml Output Stool Total 400 ml Medications Current Medications Medications Dose Ordered Sig/Vega Route Start Time Stop Time Status Last Admin Dose Admin Famotidine 20 mg DAILY IV 10/29/24 10:00 10/29/24 10:56 20 MG Insulin Human Regular ACHS SC 10/28/24 17:15 10/28/24 22:19 2 UNITS Dextrose 50 ml UD PRN IV 10/28/24 17:00 Ondansetron HCl 4 mg Q4HP PRN IV 10/28/24 17:00 Morphine Sulfate 2 mg Q30M PRN IV 10/28/24 17:00 Lactated Ringer's 1,000 ml @ 50 mls/hr Q20H IV 10/28/24 17:00 10/29/24 13:00 50 MLS/HR Lactulose 300 ml Q6HR NC 10/28/24 18:00 10/29/24 12:00 300 ML Spironolactone 25 mg DAILY PO 10/29/24 10:00 10/29/24 10:56 25 MG Multivit/Ca Carb/ B Cmplx/FA/Prenat 1 tab DAILY PO 10/29/24 10:00 10/29/24 10:56 1 TAB Ibuprofen 400 mg Q6HP PRN PO 10/28/24 17:00 Acetaminophen/ Hydrocodone Bitart 1 tab Q4HP PRN PO 10/28/24 17:00 Docusate Sodium 100 mg BIDPRN PRN PO 10/28/24 17:00 Nitroglycerin 0.4 mg Q5MINP PRN SL 10/28/24 17:00 Diagnostic Test (Pha) 1 strip ACHS 10/28/24 17:15 10/29/24 11:30 1 STRIP Laboratory Results Laboratory Tests 10/29/24 03:36 Chemistry Test 10/29/24 03:36 Albumin 3.5 g/dL (3.2-4.8) Calcium Level 10.5 mg/dL (8.7-10.4) H Total Protein 7.1 g/dL (5.7-8.2) LFT Test 10/29/24 03:36 Alanine Aminotransferase (ALT) 57 U/L (7-40) H Alkaline Phosphatase 258 U/L (46-116) H Aspartate Amino Transferase (AST) 64 U/L (13-40) H Total Bilirubin 1.4 mg/dL (0.2-1.0) H Labs and/or images reviewed: Labs reviewed by me, Image(s) reviewed by me Assessment/Plan Assessment/Plan Acute Hepatic encephalopathy lactulose spironolactone Elevated liver enzymes secondary to chronic alcohol, GI consult pending Dehydration IV fluids Generalized weakness Alcoholic cirrhosis Chronic alcohol abuse: Counseling Condition guarded Time spent 50 minutes Plan discussed with: Patient Date of Service: Oct 29, 2024 Billing Provider: SAMANTHA RANGEL MD Common Visit Codes: [id number] INP/OBS CARE(HIGH) SAMANTHA RANGEL MD Oct 29, 2024 15:04
[2024-10-29 20:00] VITALS: PULSE 80; RESP 12; O2SAT 100
[2024-10-30 06:17] LABS: Basophils # (auto) 0 10 ^3/uL (0-0.2); Basophils % (auto) 0.7 % (0.0-2.0); Eosinophils # (auto) 0.1 10 ^3/uL (0-0.8); Eosinophils % (auto) 1.9 % (0.0-7.0); Hemoglobin 10.6 g/dL (13.5-17.5); Lymphocytes # (auto) 1.6 10 ^3/uL (0.4-5.4); Lymphocytes % (auto) 26.6 % (10.0-50.0); Mean Corpuscular Hemoglobin 33.9 pg (28.0-32.0); Mean Corpuscular Hgb Conc. 35.4 g/dL (32.0-36.0); Mean Corpuscular Volume 95.8 fL (80.0-100.0); Monocytes # (auto) 0.7 10 ^3/uL (0-1.3); Monocytes % (auto) 12.6 % (0.0-12.0); Neutrophils # (auto) 3.4 10 ^3/uL (1.6-8.6); Neutrophils % (auto) 58.2 % (37.0-80.0); Nucleated Red Blood Cells % 0.1 %; Platelet Count (auto) 98 10^3/uL (140-450); Red Blood Cells 3.13 10^6/uL (4.5-5.90); Red Cell Distribution Width 15.4 % (11.8-14.3); White Blood Cell 5.9 10^3/uL (4.4-10.8)
[2024-10-30 06:57] LABS: Anion Gap 12 (5-15); BUN/Creatinine Ratio 13.5 (10.0-20.0); Blood Urea Nitrogen 12 mg/dL (9-23); Carbon Dioxide 21 mmol/L (20-31); Chloride 105 mmol/L (98-107); Potassium 3.6 mmol/L (3.5-5.1); Sodium 138 mmol/L (136-145); Total Protein 6.2 g/dL (5.7-8.2)
[2024-10-30 07:04] LABS: Alkaline Phosphatase 210 U/L (46-116); Aspartate Aminotransferase 59 U/L (13-40); Glucose 108 mg/dL (74-106)
[2024-10-30 07:05] LABS: Alanine Aminotransferase 50 U/L (7-40); Albumin 3.1 g/dL (3.2-4.8); Bilirubin, Total 1.5 mg/dL (0.2-1.0); Calcium 7.9 mg/dL (8.7-10.4)
--- NOTE | 2024-10-30 07:50 | DVHPN2 ---
Reviewed: Care Plan, H&P, Labs, Medications, Previous Orders, Radiology Changes from previous H/P or p: No Changes Eyes: No Pain, No Vision change, No Conjunctivae inflammation, No Eyelid inflammation, No Other, No Redness ENT: No Ear pain, No Ear discharge, No Nose pain, No Nose discharge, No Nose congestion, No Mouth pain, No Mouth swelling, No Throat pain, No Throat swelling, No Other Cardiovascular: No Chest Pain, No Palpitations, No Orthopnea, No Paroxysmal Noc. Dyspnea, No Edema, No Lt Headedness, No Other Respiratory: No Cough, No Dry, No Shortness of breath, No SOB with excertion, No Wheezing, No Hemoptysis, No Pleuritic Pain, No Sputum, No Other Gastrointestinal: No Nausea, No Vomiting, No Abdominal Pain, No Diarrhea, No Constipation, No Melena, No Hematochezia, No Other Genitourinary: No Dysuria, No Frequency, No Incontinence, No Hematuria, No Retention, No Other Musculoskeletal: No other, No neck pain, No shoulder pain, No arm pain, No back pain, No hand pain, No leg pain, No foot pain Skin: No Rash, No Lesions, No Jaundice, No Bruising, No Other Objective Vitals Vital Signs Date Time Temp Pulse Resp B/P (MAP) Pulse Ox O2 Delivery O2 Flow Rate FiO2 10/30/24 07:00 86 16 131/64 (86) 10/30/24 02:00 97 10/29/24 20:00 Room Air* 0 21 10/29/24 20:00 98.7 98.7 Intake/Output Intake and Output 10/30/24 07:00 Intake Total 1100 ml Output Total 600 ml Balance 500 ml Intake IV Total 1100 ml Output Stool Total 600 ml Medications Current Medications Medications Dose Ordered Sig/Vega Route Start Time Stop Time Status Last Admin Dose Admin Famotidine 20 mg DAILY IV 10/29/24 10:00 10/29/24 10:56 20 MG Insulin Human Regular ACHS SC 10/28/24 17:15 10/29/24 22:25 2 UNITS Dextrose 50 ml UD PRN IV 10/28/24 17:00 Ondansetron HCl 4 mg Q4HP PRN IV 10/28/24 17:00 Morphine Sulfate 2 mg Q30M PRN IV 10/28/24 17:00 Lactated Ringer's 1,000 ml @ 50 mls/hr Q20H IV 10/28/24 17:00 10/29/24 13:00 50 MLS/HR Lactulose 300 ml Q6HR SD 10/28/24 18:00 10/30/24 06:31 300 ML Spironolactone 25 mg DAILY PO 10/29/24 10:00 10/29/24 10:56 25 MG Multivit/Ca Carb/ B Cmplx/FA/Prenat 1 tab DAILY PO 10/29/24 10:00 10/29/24 10:56 1 TAB Ibuprofen 400 mg Q6HP PRN PO 10/28/24 17:00 Acetaminophen/ Hydrocodone Bitart 1 tab Q4HP PRN PO 10/28/24 17:00 Docusate Sodium 100 mg BIDPRN PRN PO 10/28/24 17:00 Nitroglycerin 0.4 mg Q5MINP PRN SL 10/28/24 17:00 Diagnostic Test (Pha) 1 strip ACHS 10/28/24 17:15 10/30/24 06:53 1 STRIP Laboratory Results Laboratory Tests 10/30/24 05:21 Chemistry Test 10/30/24 05:21 Albumin 3.1 g/dL (3.2-4.8) L Calcium Level 7.9 mg/dL (8.7-10.4) L Total Protein 6.2 g/dL (5.7-8.2) LFT Test 10/30/24 05:21 Alanine Aminotransferase (ALT) 50 U/L (7-40) H Alkaline Phosphatase 210 U/L (46-116) H Aspartate Amino Transferase (AST) 59 U/L (13-40) H Total Bilirubin 1.5 mg/dL (0.2-1.0) H Labs and/or images reviewed: Labs reviewed by me, Image(s) reviewed by me Assessment/Plan Assessment/Plan Acute Hepatic encephalopathy lactulose spironolactone Acute hyperammonemia ammonia 202 down to 124 today, continue lactulose rectally Acute metabolic encephalopathy Elevated liver enzymes secondary to chronic alcohol, GI consult for Dr Vigil pending Dehydration IV fluids Generalized weakness Alcoholic cirrhosis Severe malnutrition Time spent 50 minutes Advanced care planning 20 minutes Patient is full code Chronic and current alcohol abuse: Counseling Condition guarded Time spent 50 minutes Plan discussed with: Patient My Orders Orders - SAMANTHA RANGEL MD Procedure Category Date Status Time * [facility] Industrial 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
[2024-10-30 08:00] VITALS: PULSE 77; RESP 12; O2SAT 97
[2024-10-30] MEDS: LACTULOSE 20Gm/30ML SOLN PO SCH (12:54)
[2024-10-30 21:00] VITALS: BP 103/60; PULSE 77; RESP 16; TEMP 98.2; O2SAT 99
[2024-10-31] VITALS (8 sets, daily range): BP systolic 116–141; BP diastolic 60–78; PULSE 68–111; RESP 17–20; TEMP 97.5–98.6; O2SAT 96–100
--- NOTE | 2024-10-31 08:42 | DVHPN2 ---
Reviewed: Care Plan, H&P, Labs, Medications, Previous Orders, Radiology Changes from previous H/P or p: No Changes Eyes: No Pain, No Vision change, No Conjunctivae inflammation, No Eyelid inflammation, No Other, No Redness ENT: No Ear pain, No Ear discharge, No Nose pain, No Nose discharge, No Nose congestion, No Mouth pain, No Mouth swelling, No Throat pain, No Throat swelling, No Other Cardiovascular: No Chest Pain, No Palpitations, No Orthopnea, No Paroxysmal Noc. Dyspnea, No Edema, No Lt Headedness, No Other Respiratory: No Cough, No Dry, No Shortness of breath, No SOB with excertion, No Wheezing, No Hemoptysis, No Pleuritic Pain, No Sputum, No Other Gastrointestinal: No Nausea, No Vomiting, No Abdominal Pain, No Diarrhea, No Constipation, No Melena, No Hematochezia, No Other Genitourinary: No Dysuria, No Frequency, No Incontinence, No Hematuria, No Retention, No Other Musculoskeletal: No other, No neck pain, No shoulder pain, No arm pain, No back pain, No hand pain, No leg pain, No foot pain Skin: No Rash, No Lesions, No Jaundice, No Bruising, No Other Objective Vitals Vital Signs Date Time Temp Pulse Resp B/P (MAP) Pulse Ox O2 Delivery O2 Flow Rate FiO2 10/31/24 05:00 97.5 82 18 134/75 (94) 100 97.5 10/30/24 20:12 Room Air* 0 21 Intake/Output Intake and Output 10/31/24 07:00 Intake Total 400 ml Balance 400 ml Intake Oral 400 ml # Bowel Movements 3 Medications Current Medications Medications Dose Ordered Sig/Vega Route Start Time Stop Time Status Last Admin Dose Admin Famotidine 20 mg DAILY IV 10/29/24 10:00 10/30/24 10:23 20 MG Insulin Human Regular ACHS SC 10/28/24 17:15 10/31/24 06:30 2 UNITS Dextrose 50 ml UD PRN IV 10/28/24 17:00 Ondansetron HCl 4 mg Q4HP PRN IV 10/28/24 17:00 Morphine Sulfate 2 mg Q30M PRN IV 10/28/24 17:00 Lactated Ringer's 1,000 ml @ 50 mls/hr Q20H IV 10/28/24 17:00 10/29/24 13:00 50 MLS/HR Spironolactone 25 mg DAILY PO 10/29/24 10:00 10/30/24 10:22 25 MG Multivit/Ca Carb/ B Cmplx/FA/Prenat 1 tab DAILY PO 10/29/24 10:00 10/30/24 10:22 1 TAB Ibuprofen 400 mg Q6HP PRN PO 10/28/24 17:00 Acetaminophen/ Hydrocodone Bitart 1 tab Q4HP PRN PO 10/28/24 17:00 Docusate Sodium 100 mg BIDPRN PRN PO 10/28/24 17:00 Nitroglycerin 0.4 mg Q5MINP PRN SL 10/28/24 17:00 Diagnostic Test (Pha) 1 strip ACHS 10/28/24 17:15 10/31/24 06:29 1 STRIP Lactulose 60 ml Q6HR PO 10/30/24 12:00 10/31/24 06:31 60 ML Laboratory Results Laboratory Tests 10/30/24 05:21 Labs and/or images reviewed: Labs reviewed by me, Image(s) reviewed by me Assessment/Plan Assessment/Plan Acute Hepatic encephalopathy lactulose spironolactone Acute hyperammonemia ammonia 202 down to 124 today, continue lactulose rectally Acute metabolic encephalopathy, improving patient is now responding to questions Elevated liver enzymes secondary to chronic alcohol, GI consult for Dr Vigil pending Dehydration IV fluids Generalized weakness Alcoholic cirrhosis Severe malnutrition Time spent 50 minutes Advanced care planning 20 minutes Patient is full code Chronic and current alcohol abuse: Counseling Condition guarded Time spent 50 minutes Plan discussed with: Patient My Orders Orders - SAMANTHA RANGEL MD Procedure Category Date Status Time Lactulose Oral PHA 10/30/24 In Process 12:00 Mrsa Screen KAILYN 10/30/24 In Process 23:31 Hepatitis B Surface LAB 10/31/24 In Process Antigen 04:00 Hepatitis C Antibody LAB 10/31/24 In Process 04:00 Complete Blood Count LAB 10/31/24 Logged 08:32 Comprehensive LAB 10/31/24 Logged Metabolic Panel 08:32 Ammonia LAB 10/31/24 Logged 08:32 * [facility] Cardiovascular Surgeon CONS 10/31/24 Transmitted 08:38 Ammonia LAB 10/31/24 Transmitted 08:38 Complete Blood Count LAB 10/31/24 Transmitted 08:38 Comprehensive LAB 10/31/24 Transmitted Metabolic Panel 08:38 Date of Service: Oct 31, 2024 Billing Provider: SAMANTHA RANGEL MD Common Visit Codes: [id number] INP/OBS CARE(HIGH) SAMANTHA RANGEL MD Oct 31, 2024 08:41
[2024-10-31 11:42] LABS: Basophils # (auto) 0 10 ^3/uL (0-0.2); Basophils % (auto) 0.5 % (0.0-2.0); Eosinophils # (auto) 0.1 10 ^3/uL (0-0.8); Eosinophils % (auto) 0.9 % (0.0-7.0); Hematocrit 31.7 % (41.0-53.0); Lymphocytes # (auto) 1.3 10 ^3/uL (0.4-5.4); Lymphocytes % (auto) 22.6 % (10.0-50.0); Mean Corpuscular Hgb Conc. 34.7 g/dL (32.0-36.0); Mean Corpuscular Volume 95.2 fL (80.0-100.0); Monocytes # (auto) 0.8 10 ^3/uL (0-1.3); Monocytes % (auto) 13.2 % (0.0-12.0); Neutrophils # (auto) 3.6 10 ^3/uL (1.6-8.6); Neutrophils % (auto) 62.8 % (37.0-80.0); Nucleated Red Blood Cells % 0.3 %; Platelet Count (auto) 101 10^3/uL (140-450); Red Blood Cells 3.32 10^6/uL (4.5-5.90); Red Cell Distribution Width 15.3 % (11.8-14.3); White Blood Cell 5.7 10^3/uL (4.4-10.8)
[2024-10-31 12:44] LABS: Alanine Aminotransferase 83 U/L (7-40); Albumin 3.2 g/dL (3.2-4.8); Alkaline Phosphatase 274 U/L (46-116); Anion Gap 8 (5-15); Aspartate Aminotransferase 116 U/L (13-40); BUN/Creatinine Ratio 9.5 (10.0-20.0); Bilirubin, Total 1.5 mg/dL (0.2-1.0); Blood Urea Nitrogen 10 mg/dL (9-23); Calcium 9.5 mg/dL (8.7-10.4); Carbon Dioxide 22 mmol/L (20-31); Chloride 107 mmol/L (98-107); Glucose 153 mg/dL (74-106); Potassium 3.8 mmol/L (3.5-5.1); Sodium 137 mmol/L (136-145); Total Protein 6.5 g/dL (5.7-8.2)
[2024-10-31] MEDS: LACTULOSE 20Gm/30ML SOLN PO SCH (18:32)
--- NOTE | 2024-10-31 19:05 | DVHINCON2 ---
Date of service: Oct 31, [address] Cordero Reason for Consultation History of liver cirrhosis and hepatic encephalopathy History of Present Illness This 59-year-old male with history of chronic liver disease diabetes hyperlipidemia CT bit admitted to the emergency room with complaints of altered level of consciousness. Patient has history of cirrhosis of the liver patient has no gross GI bleeding or other pathology patient does on lactulose and slightly better patient has hemoglobin of 10.6 ALT AST was ammonia level was increased to 102. Head CT was unremarkable he lives in [facility] Past Medical History Diabetes hypertension chronic liver disease hyperlipidemia Past Surgical History None Family History: FH: pancreatic cancer G8 MOTHER Family History Noncontributory Social History Denies smoking history of heavy drinking Allergies: Coded Allergies: NO KNOWN ALLERGIES (Unverified , 07/10/24) Home Meds Active Scripts Glipizide (Glipizide) 5 Mg Tab, 1 TAB PO DAILY, #90 TAB 3 Refills Prov:NIKOLAS MACIAS 07/11/24 Metformin Hydrochloride (METFORMIN HCL ER) 500 Mg Tab, 1 TAB PO DAILY, #90 TAB 1 Refill Prov:NIKOLAS MACIAS 07/11/24 Current Medications Current Medications Medications (Trade) Dose Ordered Sig/Vega Route PRN Reason Start Time Stop Time Status Last Admin Lactulose 30 ml Q6HR PO 10/31/24 18:00 10/31/24 18:32 Review of Systems Noncontributory Vital Signs Vital Signs Date Time Temp Pulse Resp B/P (MAP) Pulse Ox O2 Delivery O2 Flow Rate FiO2 10/31/24 09:00 98.2 105 18 141/68 (92) 96 98.2 10/31/24 08:00 Room Air* 0 21 Physical Exam Poorly built and nourished male chronically ill-looking slightly confused Vitals stable Lungs clear Vascular unremarkable Abdomen is soft no tenderness no rigidity no guarding no masses no ascites Extremities no edema Neuro slightly confused Detailed Neuro evaluation could not be done Labs/Diagnostic Data Labs Test 10/31/24 17:21 10/31/24 11:25 10/31/24 10:33 10/31/24 06:08 Range/Units POC Glucose 161 H 70-106 mg/dl Ammonia 37 H 11-32 umol/L White Blood Count 5.7 4.4-10.8 10^3/uL Red Blood Count 3.32 L 4.5-5.90 10^6/uL Hemoglobin 11.0 L 13.5-17.5 g/dL Hematocrit 31.7 L 41.0-53.0 % Mean Corpuscular Volume 95.2 80.0-100.0 fL Mean Corpuscular Hemoglobin 33.0 H 28.0-32.0 pg Mean Corpuscular Hemoglobin Concent 34.7 32.0-36.0 g/dL Red Cell Distribution Width 15.3 H 11.8-14.3 % Platelet Count 101 L 140-450 10^3/uL Mean Platelet Volume 8.5 6.9-10.8 fL Neutrophils (%) (Auto) 62.8 37.0-80.0 % Lymphocytes (%) (Auto) 22.6 10.0-50.0 % Monocytes (%) (Auto) 13.2 H 0.0-12.0 % Eosinophils (%) (Auto) 0.9 0.0-7.0 % Basophils (%) (Auto) 0.5 0.0-2.0 % Neutrophils # (Auto) 3.6 1.6-8.6 10 ^3/uL Lymphocytes # (Auto) 1.3 0.4-5.4 10 ^3/uL Monocytes # (Auto) 0.8 0-1.3 10 ^3/uL Eosinophils # (Auto) 0.1 0-0.8 10 ^3/uL Basophils # (Auto) 0 0-0.2 10 ^3/uL Nucleated Red Blood Cells 0.3 % Sodium Level 137 136-145 mmol/L Potassium Level 3.8 3.5-5.1 mmol/L Chloride Level 107 98-107 mmol/L Carbon Dioxide Level 22 20-31 mmol/L Anion Gap 8 5-15 Blood Urea Nitrogen 10 9-23 mg/dL Creatinine 1.05 0.700-1.30 mg/dL Glomerular Filtration Rate Calc 81 >90 mL/min BUN/Creatinine Ratio 9.5 L 10.0-20.0 Serum Glucose 153 H 74-106 mg/dL Calcium Level 9.5 8.7-10.4 mg/dL Total Bilirubin 1.5 H 0.2-1.0 mg/dL Aspartate Amino Transferase (AST) 116 H 13-40 U/L Alanine Aminotransferase (ALT) 83 H 7-40 U/L Alkaline Phosphatase 274 H 46-116 U/L Total Protein 6.5 5.7-8.2 g/dL Albumin 3.2 3.2-4.8 g/dL Test 10/28/24 15:36 10/28/24 14:33 Range/Units Troponin I High Sensitivity 12 </=54 ng/L Plasma/Serum Blood Alcohol < 3.0 <10 mg/dL Microbiology Date/Time Source Procedure Growth Status 10/30/24 23:20 Nose MRSA Screen - Final Complete Assessment 59-year-old with chronic liver disease diabetes hyperlipidemia hypertension presenting with complaints of left wrist level of consciousness ammonia level was 202 ALT AST is slightly increased hemoglobin stable no gross GI bleeding Clinical impression is hepatic encephalopathy with chronic liver disease history of alcoholism No gross GI bleeding Plan/Recommendation We will recommend to treat with lactulose and if necessary rifaximin and see the response His overall prognosis is guarded long-term thank you Dr. Jade Daniel discussed with: Other MAVERICK BOWERS MD Oct 31, 2024 19:05
[2024-10-31] MEDS: HALOPERIDOL LACTATE 5 MG/ML INJ VIAL IM PRN (23:07)
[2024-11-01 08:00] VITALS: PULSE 100; PULSE 92; RESP 17; O2SAT 100
--- NOTE | 2024-11-01 08:13 | DVHPN2 ---
Reviewed: Care Plan, H&P, Labs, Medications, Previous Orders, Radiology Changes from previous H/P or p: No Changes Eyes: No Pain, No Vision change, No Conjunctivae inflammation, No Eyelid inflammation, No Other, No Redness ENT: No Ear pain, No Ear discharge, No Nose pain, No Nose discharge, No Nose congestion, No Mouth pain, No Mouth swelling, No Throat pain, No Throat swelling, No Other Cardiovascular: No Chest Pain, No Palpitations, No Orthopnea, No Paroxysmal Noc. Dyspnea, No Edema, No Lt Headedness, No Other Respiratory: No Cough, No Dry, No Shortness of breath, No SOB with excertion, No Wheezing, No Hemoptysis, No Pleuritic Pain, No Sputum, No Other Gastrointestinal: No Nausea, No Vomiting, No Abdominal Pain, No Diarrhea, No Constipation, No Melena, No Hematochezia, No Other Genitourinary: No Dysuria, No Frequency, No Incontinence, No Hematuria, No Retention, No Other Musculoskeletal: No other, No neck pain, No shoulder pain, No arm pain, No back pain, No hand pain, No leg pain, No foot pain Skin: No Rash, No Lesions, No Jaundice, No Bruising, No Other Objective Vitals Vital Signs Date Time Temp Pulse Resp B/P (MAP) Pulse Ox O2 Delivery O2 Flow Rate FiO2 10/31/24 21:00 98.2 71 18 134/68 (90) 100 98.2 10/31/24 20:00 Room Air* 0 21 Intake/Output Intake and Output 11/01/24 07:00 Intake Total 560 ml Output Total 925 ml Balance -365 ml Intake Oral 560 ml Output Urine Total 925 ml # Bowel Movements 7 Medications Current Medications Medications Dose Ordered Sig/Vega Route Start Time Stop Time Status Last Admin Dose Admin Famotidine 20 mg DAILY IV 10/29/24 10:00 10/31/24 10:57 20 MG Insulin Human Regular ACHS SC 10/28/24 17:15 11/01/24 05:28 2 UNITS Dextrose 50 ml UD PRN IV 10/28/24 17:00 Ondansetron HCl 4 mg Q4HP PRN IV 10/28/24 17:00 Morphine Sulfate 2 mg Q30M PRN IV 10/28/24 17:00 Lactated Ringer's 1,000 ml @ 50 mls/hr Q20H IV 10/28/24 17:00 11/01/24 01:00 50 MLS/HR Spironolactone 25 mg DAILY PO 10/29/24 10:00 10/31/24 10:57 25 MG Multivit/Ca Carb/ B Cmplx/FA/Prenat 1 tab DAILY PO 10/29/24 10:00 10/31/24 10:57 1 TAB Ibuprofen 400 mg Q6HP PRN PO 10/28/24 17:00 Acetaminophen/ Hydrocodone Bitart 1 tab Q4HP PRN PO 10/28/24 17:00 Docusate Sodium 100 mg BIDPRN PRN PO 10/28/24 17:00 Nitroglycerin 0.4 mg Q5MINP PRN SL 10/28/24 17:00 Diagnostic Test (Pha) 1 strip ACHS 10/28/24 17:15 11/01/24 05:23 1 STRIP Lactulose 30 ml Q6HR PO 10/31/24 18:00 11/01/24 05:22 30 ML Haloperidol Lactate 5 mg Q6HPRN PRN IM 10/31/24 22:30 11/01/24 05:15 5 MG Laboratory Results Laboratory Tests 10/31/24 10:33 Chemistry Test 10/31/24 10:33 Albumin 3.2 g/dL (3.2-4.8) Calcium Level 9.5 mg/dL (8.7-10.4) Total Protein 6.5 g/dL (5.7-8.2) LFT Test 10/31/24 10:33 Alanine Aminotransferase (ALT) 83 U/L (7-40) H Alkaline Phosphatase 274 U/L (46-116) H Aspartate Amino Transferase (AST) 116 U/L (13-40) H Total Bilirubin 1.5 mg/dL (0.2-1.0) H Microbiology Microbiology Date/Time Source Procedure Growth Status 10/30/24 23:20 Nose MRSA Screen - Final Complete Labs and/or images reviewed: Labs reviewed by me, Image(s) reviewed by me Assessment/Plan Assessment/Plan Acute Hepatic encephalopathy lactulose spiranolactone Acute hyperammonemia ammonia 202 down to 38 today, continue lactulose orally Acute metabolic encephalopathy, improving patient is now responding to questions Elevated liver enzymes secondary to chronic alcohol, GI consult appreciated Acute dehydration IV fluids Generalized weakness Recurrent falls Alcoholic cirrhosis Severe malnutrition Time spent 40 minutes Advanced care planning 20 minutes Patient is full code Chronic and current alcohol abuse: Counseling, thiamine folic acid multivitamins Condition guarded Time spent 50 minutes Plan discussed with: Patient My Orders Orders - SAMANTHA RANGEL MD Procedure Category Date Status Time * [facility] Livestock Farm Workers CONS 10/31/24 Transmitted 08:38 * Housekeeper Child Care CONS 10/31/24 Transmitted Consult Lactulose Oral PHA 10/31/24 In Process 18:00 Insert Suazo Catheter TSERING 10/31/24 In Process 16:34 Cleanse Wound With TSERING 10/31/24 In Process Wound Clean 15:00 * Dietary Consult CONS 10/31/24 Transmitted 18:13 Specialty Bed Mattress ORDERS 10/31/24 Transmitted 16:00 Complete Blood Count LAB 11/01/24 Transmitted 08:09 Comprehensive LAB 11/01/24 Transmitted Metabolic Panel 08:09 Ammonia LAB 11/02/24 Verified 04:00 Date of Service: Nov 01, 2024 Billing Provider: SAMANTHA RANGEL MD Common Visit Codes: [id number] INP/OBS CARE(HIGH) SAMANTHA RANGEL MD Nov 01, 2024 08:13
[2024-11-01 08:38] LABS: Basophils # (auto) 0 10 ^3/uL (0-0.2); Basophils % (auto) 0.4 % (0.0-2.0); Eosinophils # (auto) 0 10 ^3/uL (0-0.8); Eosinophils % (auto) 0.4 % (0.0-7.0); Hematocrit 30.9 % (41.0-53.0); Lymphocytes # (auto) 1.2 10 ^3/uL (0.4-5.4); Lymphocytes % (auto) 15.4 % (10.0-50.0); Mean Corpuscular Hemoglobin 34.1 pg (28.0-32.0); Mean Corpuscular Hgb Conc. 35.6 g/dL (32.0-36.0); Mean Corpuscular Volume 95.7 fL (80.0-100.0); Monocytes # (auto) 0.7 10 ^3/uL (0-1.3); Monocytes % (auto) 9.8 % (0.0-12.0); Neutrophils # (auto) 5.6 10 ^3/uL (1.6-8.6); Platelet Count (auto) 89 10^3/uL (140-450); Red Blood Cells 3.23 10^6/uL (4.5-5.90); Red Cell Distribution Width 15.6 % (11.8-14.3); White Blood Cell 7.5 10^3/uL (4.4-10.8)
[2024-11-01 08:54] LABS: Albumin 3.3 g/dL (3.2-4.8); Calcium 9.9 mg/dL (8.7-10.4)
[2024-11-01 08:55] LABS: Anion Gap 12 (5-15); BUN/Creatinine Ratio 7.6 (10.0-20.0); Chloride 106 mmol/L (98-107); Potassium 4.1 mmol/L (3.5-5.1); Sodium 137 mmol/L (136-145); Total Protein 6.6 g/dL (5.7-8.2)
[2024-11-01 08:57] LABS: Alanine Aminotransferase 108 U/L (7-40); Alkaline Phosphatase 308 U/L (46-116); Aspartate Aminotransferase 142 U/L (13-40); Bilirubin, Total 1.8 mg/dL (0.2-1.0); Blood Urea Nitrogen 8 mg/dL (9-23); Carbon Dioxide 19 mmol/L (20-31); Glucose 194 mg/dL (74-106)
[2024-11-01 09:00] VITALS: BP 137/65; PULSE 100; RESP 17; TEMP 98; O2SAT 100
[2024-11-01] MEDS: FOLIC ACID 1 MG TAB PO SCH (09:42)
[2024-11-01] MEDS: MULTIPLE VITAMIN TAB PO SCH (09:42)
[2024-11-01] MEDS: THIAMINE HCL 100 MG TAB PO SCH (09:42)
--- NOTE | 2024-11-01 11:46 | DVHDS2 ---
Discharge Summary Date of Admission Oct 28, 2024 at 16:36 Date of Discharge: Nov 01, 2024 Admitting Diagnosis Hepatic encephalopathy Wounds: None Labs/Diagnostic Data: Laboratory Results Test 11/01/24 06:25 11/01/24 05:25 10/31/24 06:08 10/28/24 15:36 White Blood Count 7.5 10^3/uL (4.4-10.8) Red Blood Count 3.23 10^6/uL (4.5-5.90) Hemoglobin 11.0 g/dL (13.5-17.5) Hematocrit 30.9 % (41.0-53.0) Mean Corpuscular Volume 95.7 fL (80.0-100.0) Mean Corpuscular Hemoglobin 34.1 pg (28.0-32.0) Mean Corpuscular Hemoglobin Concent 35.6 g/dL (32.0-36.0) Red Cell Distribution Width 15.6 % (11.8-14.3) Platelet Count 89 10^3/uL (140-450) Mean Platelet Volume 8.7 fL (6.9-10.8) Neutrophils (%) (Auto) 74.0 % (37.0-80.0) Lymphocytes (%) (Auto) 15.4 % (10.0-50.0) Monocytes (%) (Auto) 9.8 % (0.0-12.0) Eosinophils (%) (Auto) 0.4 % (0.0-7.0) Basophils (%) (Auto) 0.4 % (0.0-2.0) Neutrophils # (Auto) 5.6 10 ^3/uL (1.6-8.6) Lymphocytes # (Auto) 1.2 10 ^3/uL (0.4-5.4) Monocytes # (Auto) 0.7 10 ^3/uL (0-1.3) Eosinophils # (Auto) 0 10 ^3/uL (0-0.8) Basophils # (Auto) 0 10 ^3/uL (0-0.2) Nucleated Red Blood Cells 0.0 % Sodium Level 137 mmol/L (136-145) Potassium Level 4.1 mmol/L (3.5-5.1) Chloride Level 106 mmol/L (98-107) Carbon Dioxide Level 19 mmol/L (20-31) Anion Gap 12 (5-15) Blood Urea Nitrogen 8 mg/dL (9-23) Creatinine 1.05 mg/dL (0.700-1.30) Glomerular Filtration Rate Calc 81 mL/min (>90) BUN/Creatinine Ratio 7.6 (10.0-20.0) Serum Glucose 194 mg/dL (74-106) Calcium Level 9.9 mg/dL (8.7-10.4) Total Bilirubin 1.8 mg/dL (0.2-1.0) Aspartate Amino Transferase (AST) 142 U/L (13-40) Alanine Aminotransferase (ALT) 108 U/L (7-40) Alkaline Phosphatase 308 U/L (46-116) Ammonia 36 umol/L (11-32) Total Protein 6.6 g/dL (5.7-8.2) Albumin 3.3 g/dL (3.2-4.8) POC Glucose 134 mg/dl (70-106) Troponin I High Sensitivity 12 ng/L (</=54) Test 10/28/24 14:33 Plasma/Serum Blood Alcohol < 3.0 mg/dL (<10) Other Laboratory Tests 11/01/24 06:25 Brief Hx & Hospital Course: 59-year-old male with a chronic alcoholic cirrhosis brought in from [place] [facility] for altered mental status and confusion. Patient was found to be in acute hepatic encephalopathy and acute metabolic encephalopathy. ammonia level was 202 given lactulose rectally the patient was altered and confused unable to swallow after two days lactulose was changed to oral liver enzymes were elevated secondary to chronic alcohol abuse patient has a history of recurrent falls at home because of generalized weakness patient is being discharged to another care home facility per family request general condition stable but poor at the time of discharge.Pts daughter Shamika [phone] at bedside and agreeable for the plan. Consults/Reason for consult GI Operations or Procedures CT abdomen pelvis without contrast Condition at Discharge: Poor Final Diagnosis/Problems List Acute Hepatic encephalopathy lactulose spiranolactone Acute hyperammonemia ammonia 202 down to 38 today, continue lactulose orally Acute metabolic encephalopathy, improving patient is now responding to questions Elevated liver enzymes secondary to chronic alcohol, GI consult appreciated Acute dehydration IV fluids Generalized weakness Recurrent falls Alcoholic cirrhosis Severe malnutrition Patient is full code Chronic and current alcohol abuse: Counseling, thiamine folic acid multivitamins Discharge Disposition: Care Home Facility Discharge Instruct/Medications Diet: Cardiac 2g Na,low cholest Activity: Light activity Follow Up/Referral: Follow up with the custodial doctor Medications: see list 39 (Time taken for discharge summary 39 minutes) Discharge Statement: "Patient was advised to return to the ER or call 911 if any headaches, dizziness, shortness of breath, chest pain, abdominal pain, bleeding, fevers, or worsening of medical condition. Patient was counseled about treatment plan, medications, possible side effects, patientverbalized understanding. All questions were answered to the best of my ability. This discharge took greater then 30 minutes in planning, reviewing documentation, counseling the patient, and discussing with other team members." ASSESSMENT ASSESSMENT Hospital Course Improved marginally Assessment Acute Hepatic encephalopathy lactulose spiranolactone Acute hyperammonemia ammonia 202 down to 38 today, continue lactulose orally Acute metabolic encephalopathy, improving patient is now responding to questions Elevated liver enzymes secondary to chronic alcohol, GI consult appreciated Acute dehydration IV fluids Generalized weakness Recurrent falls Alcoholic cirrhosis Severe malnutrition Patient is full code Chronic and current alcohol abuse: Counseling, thiamine folic acid multivitamins Date of Service: Nov 01, 2024 Billing Provider: SAMANTHA RANGEL MD Common Visit Codes: 82301-HFM/OBS DISCH DAY >30min SAMANTHA RANGLE MD Nov 01, 2024 11:46
[2024-11-01 12:19] LABS: COVID19 ANTIGEN SOFIA FIA NEGATIVE (NEGATIVE)
[2024-11-01 13:00] VITALS: BP 129/63; PULSE 88; RESP 18; TEMP 97.9; O2SAT 98
[2024-11-01 17:00] VITALS: BP 119/62; PULSE 90; RESP 16; TEMP 97.8; O2SAT 100
[2024-11-01 20:00] VITALS: PULSE 82
[2024-11-02 08:00] VITALS: PULSE 102; PULSE 96; RESP 15; O2SAT 99
--- NOTE | 2024-11-02 08:04 | DVHPN2 ---
Reviewed: Care Plan, H&P, Labs, Medications, Previous Orders, Radiology Changes from previous H/P or p: No Changes Eyes: No Pain, No Vision change, No Conjunctivae inflammation, No Eyelid inflammation, No Other, No Redness ENT: No Ear pain, No Ear discharge, No Nose pain, No Nose discharge, No Nose congestion, No Mouth pain, No Mouth swelling, No Throat pain, No Throat swelling, No Other Cardiovascular: No Chest Pain, No Palpitations, No Orthopnea, No Paroxysmal Noc. Dyspnea, No Edema, No Lt Headedness, No Other Respiratory: No Cough, No Dry, No Shortness of breath, No SOB with excertion, No Wheezing, No Hemoptysis, No Pleuritic Pain, No Sputum, No Other Gastrointestinal: No Nausea, No Vomiting, No Abdominal Pain, No Diarrhea, No Constipation, No Melena, No Hematochezia, No Other Genitourinary: No Dysuria, No Frequency, No Incontinence, No Hematuria, No Retention, No Other Musculoskeletal: No other, No neck pain, No shoulder pain, No arm pain, No back pain, No hand pain, No leg pain, No foot pain Skin: No Rash, No Lesions, No Jaundice, No Bruising, No Other Objective Vitals Vital Signs Date Time Temp Pulse Resp B/P (MAP) Pulse Ox O2 Delivery O2 Flow Rate FiO2 11/01/24 20:00 82 11/01/24 20:00 Room Air* 0 21 11/01/24 17:00 97.8 16 119/62 (81) 100 97.8 Intake/Output Intake and Output 11/02/24 07:00 Intake Total 2350 ml Output Total 2125 ml Balance 225 ml Intake Oral 2350 ml Output Urine Total 2125 ml # Bowel Movements 2 Medications Current Medications Medications Dose Ordered Sig/Vega Route Start Time Stop Time Status Last Admin Dose Admin Famotidine 20 mg DAILY IV 10/29/24 10:00 11/01/24 09:42 20 MG Insulin Human Regular ACHS SC 10/28/24 17:15 11/02/24 05:57 3 UNITS Dextrose 50 ml UD PRN IV 10/28/24 17:00 Ondansetron HCl 4 mg Q4HP PRN IV 10/28/24 17:00 Morphine Sulfate 2 mg Q30M PRN IV 10/28/24 17:00 Lactated Ringer's 1,000 ml @ 50 mls/hr Q20H IV 10/28/24 17:00 11/02/24 00:27 50 MLS/HR Spironolactone 25 mg DAILY PO 10/29/24 10:00 11/01/24 09:42 25 MG Multivit/Ca Carb/ B Cmplx/FA/Prenat 1 tab DAILY PO 10/29/24 10:00 11/01/24 09:41 1 TAB Ibuprofen 400 mg Q6HP PRN PO 10/28/24 17:00 Acetaminophen/ Hydrocodone Bitart 1 tab Q4HP PRN PO 10/28/24 17:00 Docusate Sodium 100 mg BIDPRN PRN PO 10/28/24 17:00 Nitroglycerin 0.4 mg Q5MINP PRN SL 10/28/24 17:00 Diagnostic Test (Pha) 1 strip ACHS 10/28/24 17:15 11/02/24 05:57 1 STRIP Lactulose 30 ml Q6HR PO 10/31/24 18:00 11/02/24 05:56 30 ML Haloperidol Lactate 5 mg Q6HPRN PRN IM 10/31/24 22:30 11/01/24 23:14 5 MG Thiamine HCl 100 mg DAILY PO 11/01/24 10:00 11/01/24 09:42 100 MG Folic Acid 1 mg DAILY PO 11/01/24 10:00 11/01/24 09:42 1 MG Multivitamins 1 tab DAILY PO 11/01/24 10:00 11/01/24 09:42 1 TAB Laboratory Results Laboratory Tests 11/01/24 06:25 Microbiology Microbiology Date/Time Source Procedure Growth Status 10/30/24 23:20 Nose MRSA Screen - Final Complete Labs and/or images reviewed: Labs reviewed by me, Image(s) reviewed by me Assessment/Plan Assessment/Plan Acute Hepatic encephalopathy lactulose spiranolactone Acute hyperammonemia ammonia 202 down to 38 today, continue lactulose orally Acute metabolic encephalopathy, improving patient is now responding to questions Elevated liver enzymes secondary to chronic alcohol, GI consult appreciated Acute dehydration IV fluids Generalized weakness Recurrent falls Alcoholic cirrhosis Severe malnutrition Time spent 40 minutes Advanced care planning 20 minutes Patient is full code Chronic and current alcohol abuse: Counseling, thiamine folic acid multivitamins Patient was discharged to care home facility on 11/01/2024, awaiting authorization from [facility] Examined today, No new complaints Plan discussed with: Patient My Orders Orders - SAMANTHA RANGEL MD Procedure Category Date Status Time Ammonia LAB 11/02/24 Logged 04:00 Thiamine Tab PHA 11/01/24 In Process 10:00 Folic Acid Tablet PHA 11/01/24 In Process 10:00 Multiple Vitamin PHA 11/01/24 In Process Tablet (Mvi Tab) 10:00 * Statement Services Representative CONS 11/01/24 Transmitted Consult 09:20 Pt Request For Service PT 11/01/24 Logged 10:47 Discharge DISCHARGE 11/01/24 Transmitted 10:35 Date of Service: Nov 02, 2024 Billing Provider: SAMANTHA RANGEL MD Common Visit Codes: [id number] INP/OBS CARE(HIGH) SAMANTHA RANGEL MD Nov 02, 2024 08:04
[2024-11-02 09:00] VITALS: BP 118/54; PULSE 96; RESP 15; TEMP 98.4; O2SAT 99
[2024-11-02] MEDS: FAMOTIDINE 20 MG TAB PO SCH (10:03)
[2024-11-02 10:16] VITALS: BP 118/54; PULSE 96; RESP 15; TEMP 98.4; O2SAT 99
[2024-11-03 09:23] LABS: Hepatitis B Surface Antigen Negative (Negative)
[2024-11-03 09:44] LABS: Hepatitis C Antibody Negative (Negative)
== END 2024-11-02 11:30 | DRG 280 ==
LOC: EDBD 13:42 → ER 13:42 → TELE 16:36 → TELE-CENTR 10-30 18:49
PROVIDERS: ADMIT Nurse Practitioner Family; ATTEND Family Medicine
DX: K76.82 Hepatic encephalopathy (principal); K70.30 Alcoholic cirrhosis of liver without ascites; G93.41 Metabolic encephalopathy; E43 Unspecified severe protein-calorie malnutrition; E86.0 Dehydration; I10 Essential (primary) hypertension; E11.9 Type 2 diabetes mellitus without complications; Z20.822 Contact with and (suspected) exposure to COVID-19; F10.10 Alcohol abuse, uncomplicated; Y90.9 Presence of alcohol in blood, level not specified; R29.6 Repeated falls; E78.5 Hyperlipidemia, unspecified; Z80.0 Family history of malignant neoplasm of digestive organs; Z71.41 Alcohol abuse counseling and surveillance of alcoholic; Z68.1 Body mass index [BMI] 19.9 or less, adult
CPT/HCPCS: 36415; 70450; 71045; 80053; 80320; 82140; 82962; 84484; 85025; 86803; 87081; 87340; 87426; 93005; 97163; 99291; G0378; J1815; J3490

== ENCOUNTER 2024-11-03 20:37 | Inpatient (IN) | payer MEDICAID ==
[~2024-11-03] VITALS: Ht 132.6 cm; Wt 50.0 kg
--- NOTE | 2024-11-03 20:44 | ED.PDOC ---
History of Present Illness HPI Comments 59-year-old male with PMHx Liver Cirrhosis presents with a chief complaint of ALOC. Per EMS, patient is coming from [facility]. Per EMS, they were called out because patient was sating below 90% on room air. Patient has been altered for some time according to staff at [facility], with last known well was yesterday at 1999. Patient is not verbal at this time, eyes closed, on non-rebreather from EMS. Time Seen by MD: 20:37 Reviewed Notes: Medications, Allergies Allergies: Coded Allergies: NO KNOWN ALLERGIES (Unverified , 07/10/24) Home Meds Active Scripts Glipizide (Glipizide) 5 Mg Tab, 1 TAB PO DAILY, #90 TAB 3 Refills Prov:NIKOLAS MACIAS 07/11/24 Metformin Hydrochloride (METFORMIN HCL ER) 500 Mg Tab, 1 TAB PO DAILY, #90 TAB 1 Refill Prov:NIKOLAS MACIAS 07/11/24 Information Source: Emergency Med Personnel Mode of Arrival: EMS Severity: Moderate Timing: Hours Duration: Since onset Prehospital treatment: None Past Medical History PAST MEDICAL HISTORY: Liver Surgical History: Denies all surgeries Family History Family History: Reviewed,noncontributory to illness, Unknown Social History Smoker: Non-Smoker Alcohol: Heavy Drugs: Denies Drug Use Lives In: Snf Constitutional: denies: chills, diaphoresis, fatigue, fever, malaise, sweats, weakness, others EENTM: denies: blurred vision, double vision, ear bleeding, ear discharge, ear drainage, ear pain, ear ringing, eye pain, eye redness, hearing loss, mouth pain, mouth swelling, nasal discharge, nose bleeding, nose congestion, nose pain, photophobia, tearing, throat pain, throat swelling, voice changes, others Respiratory: reports: shortness of breath, wheezing; denies: cough, hemoptysis, orthopnea, SOB at rest, SOB with excertion, stridor, others Cardiovascular: denies: chest pain, dizzy spells, diaphoresis, Dyspnea on exertion, edema, irregular heart beat, left arm pain, lightheadedness, palpit ations, PND, syncope, others Gastrointestinal: denies: abdomen distended, abdominal pain, blood streaked b owels, constipated, diarrhea, dysphagia, difficulty swallowing, hematemesis, melena, nausea, poor appetite, poor fluid intake, rectal bleeding, rectal pain, vomiting, others Genitourinary: denies: burning, dysuria, flank pain, frequency, hematuria, incontinence, penile discharge, penile sore, pain, testicle pain, testicle swelling, urgency, others Neurological: denies: dizziness, fainting, headache, left sided numbness, left sided weakness, numbness, paresthesia, pre-existing deficit, right sided numbness, right sided weakness, seizure, speech problems, tingling, tremors, weakness, others Musculoskeletal: denies: back pain, gout, joint pain, joint swelling, muscle pain, muscle stiffness, neck pain, others Integumetry: denies: bruises, change in color, change in hair/nails, dryness, laceration, lesions, lumps, rash, wounds, others Allergic/Immunocompromised: denies: Difficulty Healing, Frequent Infections, Hives, Itching, others Hematologic/Lymphatic: denies: anemia, blood clots, easy bleeding, easy bruisi ng, swollen glands, others Endocrine: denies: excessive hunger, excessive sweating, excessive thirst, exce ssive urination, flushing, intolerance to cold, intolerance to heat, unexplained weight gain, unexplained weight loss, others Psychiatric: denies: anxiety, bipolar disorder, depression, hopeless, panic disorder, schizophrenia, sleepless, suicidal, others Unable to Obtain due to: Altered Mental Status All Other Systems: Reviewed and Negative Physical Exam General Appearance: Moderate Distress HEENT: Normal ENT Inspection, Pharynx Normal, TMs Normal Neck: Full Range of Motion, Non-Tender, Normal, Normal Inspection Respiratory: Respiratory Distress, Rhonchi, Wheezing Cardiovascular: No Edema, No JVD, No Murmur, No Gallop, Normal Peripheral Pulses, Regular Rate/Rhythm Breast Exam: Deferred Gastrointestinal: No Organomegaly, Non Tender, No Pulsatile Mass, Normal Bowel Sounds, Soft Genitalia: Deferred Pelvic: Deferred Rectal: Deferred Extremities: No calf tenderness, Normal capillary refill, Normal inspection, Normal range of motion, Non-tender, No pedal edema 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 Was a procedure done?: No Differential Dx Considerations may include: sepsis, pneumonia, uti, viral syndrome X-Ray, Labs, Meds, VS Vital Signs Date Time Temp Pulse Resp B/P (MAP) Pulse Ox O2 Delivery O2 Flow Rate FiO2 11/03/24 23:57 104 99 Nasal Cannula* 3 32 11/03/24 21:51 97.8 103 20 129/62 (84) 99 97.8 11/03/24 20:49 98.9 98 22 103/57 (72) 96 11/03/24 20:47 101 Lab Test 11/03/24 23:33 11/03/24 22:36 11/03/24 21:26 Range/Units Lactic Acid Level 6.6 *H 5.0 *H 0.4-2.0 mmol/L Troponin I High Sensitivity 11 13 </=54 ng/L White Blood Count 15.3 #H 4.4-10.8 10^3/uL Red Blood Count 3.28 L 4.5-5.90 10^6/uL Hemoglobin 11.0 L 13.5-17.5 g/dL Hematocrit 32.4 L 41.0-53.0 % Mean Corpuscular Volume 98.8 80.0-100.0 fL Mean Corpuscular Hemoglobin 33.6 H 28.0-32.0 pg Mean Corpuscular Hemoglobin Concent 34.0 32.0-36.0 g/dL Red Cell Distribution Width 16.2 H 11.8-14.3 % Platelet Count 92 L 140-450 10^3/uL Mean Platelet Volume 8.7 6.9-10.8 fL Neutrophils (%) (Auto) 80.9 H 37.0-80.0 % Lymphocytes (%) (Auto) 7.8 L 10.0-50.0 % Monocytes (%) (Auto) 11.2 0.0-12.0 % Eosinophils (%) (Auto) 0.0 0.0-7.0 % Basophils (%) (Auto) 0.1 0.0-2.0 % Neutrophils # (Auto) 12.4 H 1.6-8.6 10 ^3/uL Lymphocytes # (Auto) 1.2 0.4-5.4 10 ^3/uL Monocytes # (Auto) 1.7 H 0-1.3 10 ^3/uL Eosinophils # (Auto) 0 0-0.8 10 ^3/uL Basophils # (Auto) 0 0-0.2 10 ^3/uL Nucleated Red Blood Cells 0.0 % Sodium Level 141 136-145 mmol/L Potassium Level 4.0 3.5-5.1 mmol/L Chloride Level 109 H 98-107 mmol/L Carbon Dioxide Level 17 L 20-31 mmol/L Anion Gap 15 5-15 Blood Urea Nitrogen 17 9-23 mg/dL Creatinine 0.92 0.700-1.30 mg/dL Glomerular Filtration Rate Calc 95 >90 mL/min BUN/Creatinine Ratio 18.5 10.0-20.0 Serum Glucose 203 H 74-106 mg/dL Calcium Level 9.2 8.7-10.4 mg/dL Total Bilirubin 2.3 H 0.2-1.0 mg/dL Aspartate Amino Transferase (AST) 83 H 13-40 U/L Alanine Aminotransferase (ALT) 79 H 7-40 U/L Alkaline Phosphatase 265 H 46-116 U/L Ammonia 56 H 11-32 umol/L Total Protein 6.3 5.7-8.2 g/dL Albumin 3.1 L 3.2-4.8 g/dL Lipase 22 12-53 U/L Current Medications Medications (Trade) Dose Ordered Sig/Vega Route Start Time Stop Time Status Last Admin Sodium Chloride 1,000 ml @ 1,000 mls/hr Q1H ONCE IV 11/03/24 20:45 11/03/24 21:44 DC 11/03/24 20:45 Cefepime HCl 50 ml @ 12.5 mls/hr ONCE ONCE IV 11/03/24 22:45 11/04/24 02:44 11/04/24 00:19 Vancomycin HCl 200 ml @ 200 mls/hr ONCE ONCE IV 11/03/24 22:45 11/03/24 23:44 DC 11/03/24 23:05 Sodium Chloride 1,000 ml @ 1,000 mls/hr Q1H ONCE IV 11/03/24 22:45 11/03/24 23:44 DC 11/03/24 23:05 Time of 1ST Reevaluation: 21:07 Reevaluation 1ST: Unchanged Patient Education/Counseling: Pt Unresponsive Family Education/Counseling: No Family Present Departure 1 Departure Time of Disposition: 01:22 (Patient presented with acute shortness of breath concerning for acute on chronic COPD Exacerbation, Pneumonia, ACS, CHF, Pneumothorax. Less likely PE, Dissection. Patient does not appear septic at this time.Data: 1. I ordered and reviewed the result of at least 3 labs including a CBC, BMP, and Troponin. 2. I independently interpreted the following tests: Chest X-ray shows a pneumonia.Risk:This patient has a high risk of morbidity due to further diagnostic testing or treatment and may suffer from respiratory or cardiac etiology . Workup reveals a pneumonia, patient will be started on antibiotics, admitted for further workup and possible expert consultation.) Impression: Primary Impression: Multifocal pneumonia Additional Impressions: Metabolic encephalopathy Sepsis Qualified Codes: A41.9 - Sepsis, unspecified organism; R65.20 - Severe sepsis without septic shock; G93.41 - Metabolic encephalopathy Disposition: ADMITTED INPATIENT Admit to: Tele Condition: Guarded Critical Care Note Critical Care Time?: Yes Critical care comment: Sepsis Authorized and Performed by: Deysi Carmen MD Total critical care time: Approximately 85 minutes Due to a high probability of clinically significant, life threatening deterioration, the patient required my highest level of preparedness to intervene emergently and I personally spent this critical care time directly and personally managing the patient. This critical care time included obtaining a history; examining the patient; pulse oximetry; ordering and review of studies; arranging urgent treatment with development of a management plan; evaluation of patient's response to treatment; frequent reassessment; and, discussions with other providers. This critical care time was performed to assess and manage the high probability of imminent, life-threatening deterioration that could result in multi-organ failure. It was exclusive of separately billable procedures and treating other patients and teaching time. Please see my other sections and the rest of the note for further information on patient assessment and treatment. Stability Stability form required: No Heart Score Heart Score: Heart Score Response (Comments) Value History N/A 0 EKG N/A 0 Age N/A 0 Risk Factors N/A 0 Troponin N/A 0 Total 0 I personally scribed for DEYSI CARMEN MD ([email or web address]) on 11/03/24 at 20:44. Electronically submitted by Idris Ptunam ([email or web address]). DEYSI CARMEN MD Nov 03, 2024 20:44
[2024-11-03] MEDS: SODIUM CHLORIDE 0.9% 1,000 ML IV ONE ×2 (20:45→23:05)
[2024-11-03 21:44] LABS: Basophils # (auto) 0 10 ^3/uL (0-0.2); Basophils % (auto) 0.1 % (0.0-2.0); Eosinophils # (auto) 0 10 ^3/uL (0-0.8); Hematocrit 32.4 % (41.0-53.0); Lymphocytes # (auto) 1.2 10 ^3/uL (0.4-5.4); Lymphocytes % (auto) 7.8 % (10.0-50.0); Mean Corpuscular Hemoglobin 33.6 pg (28.0-32.0); Mean Corpuscular Volume 98.8 fL (80.0-100.0); Monocytes # (auto) 1.7 10 ^3/uL (0-1.3); Monocytes % (auto) 11.2 % (0.0-12.0); Neutrophils # (auto) 12.4 10 ^3/uL (1.6-8.6); Neutrophils % (auto) 80.9 % (37.0-80.0); Platelet Count (auto) 92 10^3/uL (140-450); Red Blood Cells 3.28 10^6/uL (4.5-5.90); Red Cell Distribution Width 16.2 % (11.8-14.3); White Blood Cell 15.3 10^3/uL (4.4-10.8)
[2024-11-03 22:10] LABS: Alanine Aminotransferase 79 U/L (7-40); Albumin 3.1 g/dL (3.2-4.8); Alkaline Phosphatase 265 U/L (46-116); Anion Gap 15 (5-15); Aspartate Aminotransferase 83 U/L (13-40); BUN/Creatinine Ratio 18.5 (10.0-20.0); Bilirubin, Total 2.3 mg/dL (0.2-1.0); Blood Urea Nitrogen 17 mg/dL (9-23); Calcium 9.2 mg/dL (8.7-10.4); Carbon Dioxide 17 mmol/L (20-31); Chloride 109 mmol/L (98-107); Glucose 203 mg/dL (74-106); Lipase 22 U/L (12-53); Sodium 141 mmol/L (136-145); Total Protein 6.3 g/dL (5.7-8.2)
[2024-11-03] MEDS: VANCOMYCIN 1GM/250ML KIT 200 ML IV ONE (23:05)
[2024-11-03 23:57] VITALS: PULSE 104; O2SAT 99
[2024-11-04] VITALS (10 sets, daily range): BP systolic 106–129; BP diastolic 52–62; PULSE 74–101; RESP 13–20; TEMP 98.9; O2SAT 97–100
[2024-11-04] MEDS: CEFEPIME 2GM/50ML NS 50 ML IV ONE (00:19)
--- NOTE | 2024-11-04 00:48 | DVH ---
CHEST RADIOGRAPH Indication: ams Technique: Single frontal view of the chest was obtained Comparison: XY CHEST PORTABLE on DOS: 10/28/24 Findings/ IMPRESSION: 1. Patchy opacities throughout the right lung concerning for multifocal pneumonia. No pneumothorax. Left lung is clear. No significant pleural effusions.
--- NOTE | 2024-11-04 01:25 | DVH ---
CT HEAD WITHOUT CONTRAST INDICATION: [facility] EXAM DATE: 11/04/2024 12:06 AM COMPARISON: CT HEAD WITHOUT CONTRAST on DOS: 10/28/24 RADIATION DOSE: CTDIvol: 52.09 mGy, DLP: 922.48 mGy*cm PROCEDURE: CT scans of the head were obtained from the vertex to the skull base. Sagittal and coronal reconstructions were provided. All CT scans at this medical facility are performed using dose modulation techniques as appropriate t o a performed exam including the following: Automated exposure control was utilized; adjustment of th e MA and/or KV according to patient size; and use of iterative reconstruction technique. FINDINGS: There is sulcal and ventricular prominence. The brainshows normal morphology and mejia-whi te matter differentiation, without intracranial hemorrhage, extra-axial fluid collection, mass effect or acute large vessel infarct. The ventricles are normal in size. The basal cisterns are patent. The skull and visible facial bones are intact. The paranasal sinuses, mastoid air cells and middle ear c avities are well-aerated. The soft tissues of the scalp are unremarkable. IMPRESSION: No acute intracranial abnormality. Limited evaluation due to motion artifact and acquisition techniqu e.
[2024-11-04] MEDS ORDERED: ONDANSETRON HCL 4 MG/2 ML VIAL IV PRN ×2 (01:45→07:45)
[2024-11-04] MEDS ORDERED: MORPHINE SULFATE INJ 2 MG/ml SYRG IV PRN ×3 (01:45→07:45)
[2024-11-04] MEDS ORDERED: NITROGLYCERIN 0.4 MG SL TAB SL PRN ×2 (01:45→07:45)
[2024-11-04] MEDS: SODIUM CHLORIDE 0.9% 1,000 ML IV ONE (01:50)
[2024-11-04] MEDS ORDERED: LACTULOSE 20Gm/30ML SOLN PO ONE (02:00)
[2024-11-04] MEDS ORDERED: cefTRIAXone 1GM/50ML D5W 50 ML IV ONE (02:00)
[2024-11-04] MEDS ORDERED: SODIUM CHLORIDE 0.9% 1,000 ML IV SCH (02:00)
[2024-11-04] MEDS ORDERED: DEXTROSE (50%) 50ML SYRG IV PRN ×2 (02:15→07:45)
[2024-11-04] MEDS ORDERED: hydrALAZINE HCL 20 MG/ML VL IV PRN ×2 (02:15→07:45)
[2024-11-04] MEDS ORDERED: VANCOMYCIN PER PHARMACY 0 MG IV SCH ×2 (02:30→02:45)
[2024-11-04 02:39] LABS: Base Excess -7.1 mmol/L (-2.0-3.0)
--- NOTE | 2024-11-04 02:49 | DVHHPRES ---
History of Present Illness Resident Creating Document: BERTRAND HERRERA RESIDENT History of Present Illness Patient is 59 years old male with past medical history of alcoholic cirrhosis, hypertension, diabetes mellitus type 2 was brought into the ER by EMS from [facility] due to altered mental status. Patient with altered mental status. Product Development Specialist spoke with the patient's daughter Moriah and also reviewed chart from the ER physician. As per patient's daughter patient was getting confused today in the morning and also he was desaturating below 90s. Patient was discharged from the [facility] ON 11/01/2024 with a diagnosis of altered mental status due to metabolic encephalopathy. Patient at baseline is alert and oriented and conversant but today he was confused and as he was desaturating EMS was called. Daughter denied noticing any chest pain or shortness of breath or acute joint pain or swelling. Initial lab workup revealed neutrophilic leukocytosis with WBC of 15.3, neutrophils 80.9, mild anemia hemoglobin 11.0, thrombocytopenia with platelet 92, blood sugar level of 203, lactic acidosis with lactic acid 5.0> 6.6, transaminitis with a serum bilirubin 2.2, AST 83, ALT 79, alkaline phosphatase 265, elevated ammonia 56, lipase 22. CT head revealed-No acute intracranial abnormality. Limited evaluation due to motion artifact and acquisition technique. CXR revealed- Patchy opacities throughout the right lung concerning for multifocal pneumonia. Past Medical History alcoholic cirrhosis, hypertension, diabetes mellitus type 2 Past Surgical History Denies Past Social History Ex Smoker, ex alcoholic, no drug abuser,coming from [facility] Review of Systems Review of Systems Allergy- NKD Patient was seen today at the bedside Due to patient's altered mental status details of the history could not be obtained Allergies: Coded Allergies: NO KNOWN ALLERGIES (Unverified , 07/10/24) Medications Current Medications Medications Dose Ordered Sig/Vega Route Start Time Stop Time Status Last Admin Dose Admin Sodium Chloride 10 ml Q8HR IV 11/04/24 06:00 Ondansetron HCl 4 mg Q4HP PRN IV 11/04/24 01:45 Morphine Sulfate 2 mg Q4HPRN PRN IV 11/04/24 01:45 Nitroglycerin 0.4 mg Q5MINP PRN SL 11/04/24 01:45 Morphine Sulfate 2 mg Q30M PRN IV 11/04/24 01:45 Pantoprazole Sodium 40 mg DAILY IV 11/04/24 10:00 Albuterol 2.5 mg Q4HPRN PRN NEB 11/04/24 02:00 Ipratropium [place] 0.5 mg Q6HWA NEB 11/04/24 06:00 Lactulose 30 ml BID PO 11/04/24 10:00 Diagnostic Test (Pha) 1 strip ACHS 11/04/24 07:00 Insulin Human Regular ACHS SC 11/04/24 07:00 Dextrose 50 ml UD PRN IV 11/04/24 02:15 Hydralazine HCl 10 mg Q6HP PRN IV 11/04/24 02:15 Meropenem 50 ml @ 17 mls/hr Q8HR IV 11/04/24 06:00 UNV Vancomycin HCl 0 ml @ 0 mls/hr UD IV 11/04/24 02:30 UNV Exam Vital Signs Vital Signs Date Time Temp Pulse Resp B/P (MAP) Pulse Ox O2 Delivery O2 Flow Rate FiO2 11/04/24 02:04 98.9 101 20 129/62 99 3.0 32 98.9 11/03/24 23:57 Nasal Cannula* Exam General examination- confusion, altered mental status, mildly icteric, tachypneic HEENT- PEERLA-mildly icteric Cardiovascular- S1-S2 audible, rate and rhythm regular, no murmur Respiratory- crackles lung coelho+ Gastrointestinal- bowel sound+. Nondistended Musculoskeletal-no acute joint swelling or tenderness or redness# Lower extremity- muscle wasting Neurological- altered mental status with confusion Psychiatry- altered mental status, confusion Skin-, mildly yellowish Labs/Xrays Labs Test 11/04/24 02:00 11/03/24 21:26 Range/Units White Blood Count 15.3 #H 4.4-10.8 10^3/uL Red Blood Count 3.28 L 4.5-5.90 10^6/uL Hemoglobin 11.0 L 13.5-17.5 g/dL Hematocrit 32.4 L 41.0-53.0 % Mean Corpuscular Volume 98.8 80.0-100.0 fL Mean Corpuscular Hemoglobin 33.6 H 28.0-32.0 pg Mean Corpuscular Hemoglobin Concent 34.0 32.0-36.0 g/dL Red Cell Distribution Width 16.2 H 11.8-14.3 % Platelet Count 92 L 140-450 10^3/uL Mean Platelet Volume 8.7 6.9-10.8 fL Neutrophils (%) (Auto) 80.9 H 37.0-80.0 % Lymphocytes (%) (Auto) 7.8 L 10.0-50.0 % Monocytes (%) (Auto) 11.2 0.0-12.0 % Eosinophils (%) (Auto) 0.0 0.0-7.0 % Basophils (%) (Auto) 0.1 0.0-2.0 % Neutrophils # (Auto) 12.4 H 1.6-8.6 10 ^3/uL Lymphocytes # (Auto) 1.2 0.4-5.4 10 ^3/uL Monocytes # (Auto) 1.7 H 0-1.3 10 ^3/uL Eosinophils # (Auto) 0 0-0.8 10 ^3/uL Basophils # (Auto) 0 0-0.2 10 ^3/uL Nucleated Red Blood Cells 0.0 % Sodium Level 141 136-145 mmol/L Potassium Level 4.0 3.5-5.1 mmol/L Chloride Level 109 H 98-107 mmol/L Carbon Dioxide Level 17 L 20-31 mmol/L Anion Gap 15 5-15 Blood Urea Nitrogen 17 9-23 mg/dL Creatinine 0.92 0.700-1.30 mg/dL Glomerular Filtration Rate Calc 95 >90 mL/min BUN/Creatinine Ratio 18.5 10.0-20.0 Serum Glucose 203 H 74-106 mg/dL Calcium Level 9.2 8.7-10.4 mg/dL Total Bilirubin 2.3 H 0.2-1.0 mg/dL Aspartate Amino Transferase (AST) 83 H 13-40 U/L Alanine Aminotransferase (ALT) 79 H 7-40 U/L Alkaline Phosphatase 265 H 46-116 U/L Ammonia 56 H 11-32 umol/L Total Protein 6.3 5.7-8.2 g/dL Albumin 3.1 L 3.2-4.8 g/dL Lipase 22 12-53 U/L Assessment/Plan Assessment/Plan # Altered mental status likely due to Metabolic Encephalopathy/pneumonia -CT head revealed-No acute intracranial abnormality. Limited evaluation due to motion artifact and acquisition technique. -CXR revealed- Patchy opacities throughout the right lung concerning for multifocal pneumonia. -neutrophilic leukocytosis with WBC of 15.3, neutrophils 80.9, -transaminitis with a serum bilirubin 2.2, AST 83, ALT 79, alkaline phosphatase 265, - elevated ammonia 56, -continue lactulose as prescribed -continue meropenem 1 g q.8h -vancomycin as per pharmacy protocol -avoid addition, constipation and hepatotoxic drugs -pending blood culture, urine culture, sputum culture -ordered GI consult for further evaluation and care #Sepsis likely due to pneumonia/Metabolic encephalopathy --continue meropenem 1 g q.8h' -vancomycin as per pharmacy protocol -avoid constipation and hepatotoxic drugs -pending blood culture, urine culture, sputum culture #Metabolic encephalopathy --CT head revealed-No acute intracranial abnormality. Limited evaluation due to motion artifact and acquisition technique. -CXR revealed- Patchy opacities throughout the right lung concerning for multifocal pneumonia. -neutrophilic leukocytosis with WBC of 15.3, neutrophils 80.9, -continue meropenem 1 g q.8h -vancomycin as per pharmacy protocol -pending blood culture, urine culture, sputum culture #Acute hypoxic respiratory failure likely due to pneumonia --continue meropenem 1 g q.8h -vancomycin as per pharmacy protocol -avoid addition, constipation and hepatotoxic drugs -pending blood culture, urine culture, sputum culture # suspected hepatic encephalopathy --CT head revealed-No acute intracranial abnormality. Limited evaluation due to motion artifact and acquisition technique. . -neutrophilic leukocytosis with WBC of 15.3, neutrophils 80.9, -transaminitis with a serum bilirubin 2.2, AST 83, ALT 79, alkaline phosphatase 265, - elevated ammonia 56, -continue lactulose as prescribed -avoid addition, constipation and hepatotoxic drugs -pending blood culture, urine culture, sputum culture -ordered GI consult for further evaluation and care #Pneumonia Gram-positive versus Gram-negative --continue meropenem 1 g q.8h -vancomycin as per pharmacy protocol -avoid constipation and hepatotoxic drugs -pending blood culture, urine culture, sputum culture # Lactic acidosis - lactic acid 5.0> 6.6 -continue current management #Transaminitis -serum bilirubin 2.2, AST 83, ALT 79, alkaline phosphatase 265, -continue current management #Hypertension -continue hydralazine 10 mg IV q.6h p.r.n. #Diabetes mellitus type 2 -HGB A1c 11.6 on 07/10/2024 -insulin sliding scale prescribed #Alcoholic cirrhosis -continue current management #Hyper ammonia -ammonia 56 --continue lactulose as prescribed -avoid constipation and dehydration and hepatotoxic drugs # anemia of chronic disease -Monitor CBC # malnutrition -order dietary consult Goals of care/advance care planning; FULL CODE; discussed with the patient >15 minutes PUD prophylaxis: Pantoprazole DVT prophylaxis: Plan discussed with Dr. Cormier, nursing staff, patient Total time spent on patient evaluation, chart review, assessment and plan, discussion discussion >30 minutes Plan discussed with: Patient Plan discussed with: Patient, Spouse, Daughter, Other (RN) My Orders Orders - BERTRAND HERRERA Procedure Category Date Status Time Admit ADMIT 11/04/24 Transmitted 01:44 Code Status CODE 11/04/24 Transmitted 01:44 Sodium Chloride Lock PHA 11/04/24 In Process (Saline Lock Ns) 06:00 Ondansetron Hcl PHA 11/04/24 In Process (Zofran) 01:45 Complete Blood Count LAB 11/05/24 Verified 04:00 Comprehensive LAB 11/05/24 Verified Metabolic Panel 04:00 Npo (Nothing By DIET 11/04/24 Transmitted Mouth) Diet Breakfast Morphine Sulfate PHA 11/04/24 In Process Injection 01:45 Nitroglycerin PHA 11/04/24 In Process Sublingual (Ntrostat 01:45 Morphine Sulfate PHA 11/04/24 In Process Injection 01:45 Oxygen By Nasal RT 11/04/24 Transmitted Cannula 01:44 Stat Ekg For Chest TSERING 11/04/24 In Process Pain 01:44 Notify Of Changes TSERING 11/04/24 In Process From Base 01:44 Solutions Engineer For TSERING 11/04/24 In Process 24 Hours 01:44 Emergency Dysrhythmia TSERING 11/04/24 In Process Protocol 01:44 Rhythm Strips Once TSERING 11/04/24 In Process Every Shift 01:44 Azithromycin 500mg/ PHA 11/04/24 In Process 250ml (Zithromax 50 02:00 Respiratory Culture KAILYN 11/04/24 Logged W/ Gs 01:50 Urine Bacterial KAILYN 11/04/24 Logged Culture 01:50 B-Type Natriuretic LAB 11/04/24 In Process Peptide 01:50 Thyroid Stimulating LAB 11/04/24 In Process Hormone 01:50 Magnesium LAB 11/04/24 In Process 01:50 Pantoprazole PHA 11/04/24 In Process (Protonix) 10:00 Albuterol Medneb PHA 11/04/24 In Process (Ventolin Medneb) 02:00 Ipratropium Medneb PHA 11/04/24 In Process (Atrovent Medneb) 06:00 Drug Screen LAB 11/04/24 Logged 01:55 Blood Alcohol LAB 11/04/24 In Process 01:55 D-Dimer LAB 11/04/24 Logged 01:55 Prothrombin Time W/ LAB 11/04/24 Logged INR 01:55 Abdomen Limited US 11/04/24 Logged 01:58 Lactulose Oral PHA 11/04/24 In Process 10:00 Complete Blood Count LAB 11/04/24 Logged 04:00 Comprehensive LAB 11/04/24 Logged Metabolic Panel 04:00 Ammonia LAB 11/04/24 Logged 04:00 Magnesium LAB 11/04/24 Logged 04:00 Covid19 Antigen Jamia LAB 11/04/24 Logged Rapid Influenza A&B LAB 11/04/24 Logged 02:04 Glucose Blood PHA 11/04/24 In Process (Accu-Chek Comfort 07:00 Insulin R (Human) PHA 11/04/24 In Process (Insulin R) 07:00 Dextrose 50% Syringe PHA 11/04/24 In Process 02:15 Hydralazine Injection PHA 11/04/24 In Process (Apresoline Inject 02:15 Date of Service: Nov 04, 2024 Billing Provider: RYLIE CORMIER MD Common Visit Codes: [id number] INP/OBS CARE (HIGH) BERTRAND HERRERA RESIDENT Nov 04, 2024 02:49 RYLIE CORMIER MD Nov 04, 2024 11:06
[2024-11-04 02:51] LABS: Lactic Acid w/Reflex 4.4 mmol/L (0.4-2.0)
[2024-11-04] MEDS: PANTOPRAZOLE 40 MG/10 ML VIAL INJ IV ONE (02:58)
[2024-11-04] MEDS: MEROPENEM 1GM IVPB 50 ML IV ONE (02:58)
[2024-11-04] MEDS ORDERED: LACTULOSE 10g/15ml SOLN 473ML PR ONE (03:15)
[2024-11-04] MEDS ORDERED: LACTATED RINGER'S 1,000 ML IV ONE (03:15)
[2024-11-04] MEDS: LACTATED RINGER'S 1,000 ML IV ONE ×2 (03:30→07:45)
--- NOTE | 2024-11-04 04:00 | DVH ---
"Patient Name Date of YEYO BARRIENTOS 1965 [id number] Referring Physician Faxed To [facility] View Requested ABDL Indication Date 11/04/2024 Exam Date Report Date 11/04/2024 11/04/2024 Examination: ABDL CLINICAL INDICATION: ULTRASOUND OF THE HEPATOBILIARY SYSTEM TO RULE OUT PANCREATITIS/CIRRHOSIS~;OF LIVER/COMMON BILE DUCT OBSTRUCTION DICOM;Comment: ;AMS, HISTORY OF LIVER DISEASE COMPARISON: None. TECHNIQUE: Real-time ultrasonic imaging of the abdomen was performed. FINDINGS: Liver: The liver measures 10.84 cm. Heterogeneous coarse echotexture noted, likely indicative of liver parenchymal disease. Smooth borders, with no evidence of intrahepatic ductal dilatation. Hepatic veins are patent. Gallbladder: The region of the gallbladder fossa is obscured by bowel gas. No gallbladder pathology can be definitively assessed. Common Bile Duct: Not clearly visualized, due to obscuration by bowel gas. Pancreas: The pancreas is obscured by bowel gas, preventing detailed evaluation. Right Kidney: The right kidney is not adequately visualized, due to bowel gas. IMPRESSION: 1. Liver: Liver measures 10.84 cm with heterogeneous coarse echotexture, suggesting liver parenchymal disease. 2. Gallbladder, Pancreas, and Right Kidney: Visualization of the gallbladder, right kidney, and pancreas is limited by bowel gas. If clinically suspected pathology in these areas, further evaluation with CT abdomen is recommended. Angel Vazquez Electronically Signed 11/04/2024 03:46 QA By: LUCINDA Final : || EHR : leonardo LOPEZ : 11/04/2024 3:46:04 AM JEREMIAH"
[2024-11-04] MEDS: AZITHROMYCIN 500MG/ 250ML 250 ML IV ONE ×2 (04:07→04:08)
[2024-11-04 04:08] LABS: Basophils # (auto) 0 10 ^3/uL (0-0.2); Basophils % (auto) 0.1 % (0.0-2.0); Eosinophils # (auto) 0 10 ^3/uL (0-0.8); Hematocrit 29.1 % (41.0-53.0); Lymphocytes # (auto) 0.4 10 ^3/uL (0.4-5.4); Lymphocytes % (auto) 4.3 % (10.0-50.0); Mean Corpuscular Hemoglobin 33.6 pg (28.0-32.0); Mean Corpuscular Hgb Conc. 34.5 g/dL (32.0-36.0); Mean Corpuscular Volume 97.6 fL (80.0-100.0); Monocytes # (auto) 0.8 10 ^3/uL (0-1.3); Monocytes % (auto) 8.2 % (0.0-12.0); Neutrophils # (auto) 8.1 10 ^3/uL (1.6-8.6); Neutrophils % (auto) 87.4 % (37.0-80.0); Platelet Count (auto) 75 10^3/uL (140-450); Red Blood Cells 2.98 10^6/uL (4.5-5.90); Red Cell Distribution Width 15.9 % (11.8-14.3); White Blood Cell 9.3 10^3/uL (4.4-10.8)
[2024-11-04] MEDS: MAGNESIUM SULFATE 1GM/100ML 100 ML IV ONE ×2 (04:09→04:37)
[2024-11-04 04:30] LABS: INR 1.45 (0.9-1.15)
[2024-11-04 04:32] LABS: Anion Gap 14 (5-15); BUN/Creatinine Ratio 21.4 (10.0-20.0); Blood Urea Nitrogen 15 mg/dL (9-23); Magnesium 1.8 mg/dL (1.6-2.6); Potassium 3.7 mmol/L (3.5-5.1); Sodium 143 mmol/L (136-145)
[2024-11-04 04:33] LABS: Alanine Aminotransferase 74 U/L (7-40); Albumin 2.7 g/dL (3.2-4.8); Alkaline Phosphatase 223 U/L (46-116); Aspartate Aminotransferase 82 U/L (13-40); Bilirubin, Total 1.9 mg/dL (0.2-1.0); Calcium 8.4 mg/dL (8.7-10.4); Carbon Dioxide 16 mmol/L (20-31); Chloride 113 mmol/L (98-107); Glucose 211 mg/dL (74-106); Total Protein 5.6 g/dL (5.7-8.2)
[2024-11-04] MEDS: ACETAMINOPHEN 650 MG RECT SUPP PR ONE (05:21)
[2024-11-04] MEDS: MEROPENEM 1GM IVPB 50 ML IV SCH (06:00)
[2024-11-04] MEDS: LACTULOSE 10g/15ml SOLN 473ML PR SCH ×2 (06:00→14:00)
[2024-11-04] MEDS: SODIUM CHLOR 0.9% PF (SALINE LOCK) 10ML VIAL/SYR IV SCH ×2 (06:03→14:07)
[2024-11-04] MEDS ORDERED: InsuLIN REG 1unit/0.01ml Soln (100units/ml) SC SCH ×3 (07:00→11:30)
--- NOTE | 2024-11-04 07:00 | ECG ---
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
[2024-11-04] MEDS: ACCU-CHEK COMFORT CURVE STRIP VI SCH ×2 (07:13→11:12)
[2024-11-04] MEDS: IPRATROPIUM BROM 0.5 MG/2.5ML INH SOL NEB SCH ×2 (07:22→12:55)
[2024-11-04] MEDS: ALBUTEROL SULF 2.5 MG/0.5ML(0.5%) NEB SOLN NEB PRN ×2 (07:22→12:55)
[2024-11-04] MEDS: IPRATROPIUM BROM 0.5 MG/2.5ML INH SOL ONE (07:24)
[2024-11-04] MEDS: ALBUTEROL SULF 2.5 MG/0.5ML(0.5%) NEB SOLN ONE (07:25)
[2024-11-04 07:43] LABS: Basophils # (auto) 0 10 ^3/uL (0-0.2); Basophils % (auto) 0.2 % (0.0-2.0); Eosinophils # (auto) 0 10 ^3/uL (0-0.8); Hematocrit 28.6 % (41.0-53.0); Lymphocytes # (auto) 0.8 10 ^3/uL (0.4-5.4); Lymphocytes % (auto) 7.6 % (10.0-50.0); Mean Corpuscular Volume 97.1 fL (80.0-100.0); Monocytes # (auto) 1.2 10 ^3/uL (0-1.3); Monocytes % (auto) 11.5 % (0.0-12.0); Neutrophils # (auto) 8.6 10 ^3/uL (1.6-8.6); Neutrophils % (auto) 80.7 % (37.0-80.0); Platelet Count (auto) 72 10^3/uL (140-450); Red Blood Cells 2.95 10^6/uL (4.5-5.90); Red Cell Distribution Width 16.2 % (11.8-14.3); White Blood Cell 10.7 10^3/uL (4.4-10.8)
[2024-11-04 08:02] LABS: INR 1.52 (0.9-1.15); Prothrombin Time 15.6 sec (9.3-11.8)
[2024-11-04 08:11] LABS: Anion Gap 8 (5-15); BUN/Creatinine Ratio 24.6 (10.0-20.0); Blood Urea Nitrogen 17 mg/dL (9-23); Magnesium 2.1 mg/dL (1.6-2.6); Potassium 3.5 mmol/L (3.5-5.1); Sodium 141 mmol/L (136-145)
[2024-11-04 08:15] LABS: Alanine Aminotransferase 68 U/L (7-40); Albumin 2.5 g/dL (3.2-4.8); Alkaline Phosphatase 201 U/L (46-116); Aspartate Aminotransferase 69 U/L (13-40); Bilirubin, Total 1.7 mg/dL (0.2-1.0); Calcium 8.2 mg/dL (8.7-10.4); Carbon Dioxide 19 mmol/L (20-31); Chloride 114 mmol/L (98-107); Glucose 238 mg/dL (74-106); Total Protein 5.1 g/dL (5.7-8.2)
[2024-11-04] MEDS ORDERED: cefTRIAXone 1GM/50ML D5W 50 ML IV SCH (09:00)
[2024-11-04] MEDS: InsuLIN REG 1unit/0.01ml Soln (100units/ml) SC SCH (09:49)
[2024-11-04] MEDS ORDERED: LACTULOSE 20Gm/30ML SOLN PO SCH (10:00)
[2024-11-04] MEDS ORDERED: AZITHROMYCIN 500MG/ 250ML 250 ML IV SCH (10:00)
[2024-11-04] MEDS ORDERED: PANTOPRAZOLE 40 MG/10 ML VIAL INJ IV SCH (10:00)
[2024-11-04] MEDS: PANTOPRAZOLE 40 MG/10 ML VIAL INJ IV SCH (10:41)
[2024-11-04] MEDS ORDERED: VANCOMYCIN 750mg/150ml 150 ML IV SCH (11:00)
[2024-11-04 11:27] LABS: Urine Bacteria FEW /hpf (None Seen); Urine Blood 2+ /uL (Negative); Urine Clarity Turbid (Clear); Urine Color Light-Orange (Yellow); Urine Protein, UAD TRACE (Negative); Urine Specific Gravity 1.017 (1.001-1.035); Urine Urobilinogen Normal (Negative); Urine WBC 369 /hpf (0 - 3); Urine WBC Clumps PRESENT /hpf (None Seen); Urine pH 5.5 (5.0-9.0)
[2024-11-04] MEDS: VANCOMYCIN 750MG VIAL 750 MG in D5W 5% 250 ML IV SCH (11:35)
[2024-11-04 11:37] LABS: Amphetamine Screen, Urine Neg (NEGATIVE); Barbiturate Scree,Urine Neg (NEGATIVE); Benzodiazephine Screen, Urine Neg (NEGATIVE); Cocaine Screen, Urine Neg (NEGATIVE); Opiate Scree,Urine Neg (NEGATIVE); Phencyclidine Screen, Urine Neg (NEGATIVE)
[2024-11-04 11:38] LABS: Cannabinoid Screen, Urine Neg (NEGATIVE)
[2024-11-04 11:56] LABS: COVID19 ANTIGEN SOFIA FIA NEGATIVE (NEGATIVE); Rapid Influenza A Negative (Negative); Rapid Influenza B Negative (Negative)
[2024-11-04] MEDS ORDERED: LACTULOSE 10g/15ml SOLN 473ML PR SCH (12:00)
[2024-11-04] MEDS ORDERED: MEROPENEM 1GM IVPB 50 ML IV SCH (14:00)
--- NOTE | 2024-11-04 14:36 | DVHPNRES ---
Progress Note Date Seen: Nov 04, 2024 Resident Creating Document: MARYSOL VILLELA RESIDENT Medical Necessity Reason Pt with a Central, PICC or Fol: No Subjective Review of Systems Theo Lora is a 59-year-old male with PMH of alcoholic liver cirrhosis, HTN, type 2 DM presented to the ED by EMS from nursing facility with the chief complaints fever, cough and altered mental status since yesterday. Patient is poor historian, spoke with his daughter, reported patient has been having fever, shortness of breath, cough with altered mental status. Her daughter reported he will get confused whenever his ammonia is high and he is being sick for last 4 months. Patient recently discharged from this facility after treating for hepatic encephalopathy. Per her daughter this is not patient's baseline. On my assessment denies chest pain, diarrhea, nausea, vomiting, abdominal pain and other acute associated symptoms. PMH: Liver cirrhosis, HTN, type 2 DM PSH: Denies Family history: Reviewed, noncontributory Social history: Lives in nursing facility. Former smoker, alcoholic but no active abuse Allergies: No known allergies Patient seen and examined at the bedside. Patient is confused, oriented x2 and not able to respond properly. Patient is currently on oxygen. Head CT showed no acute intracranial abnormalities. Liver ultrasound showed heterogeneous coarse echotexture of liver. CXR showed patchy opacities throughout the right lung. patient is currently on vancomycin and meropenem. Ordered pancultures. Monitor continuous Objective vital signs Vital Sign Date Time Temp Pulse Resp B/P (MAP) Pulse Ox O2 Delivery O2 Flow Rate FiO2 11/04/24 13:01 89 18 100 11/04/24 13:00 135/72 (93) 11/04/24 08:00 97.8 97.8 11/04/24 07:30 Nasal Cannula* 6 44 Total Intake and Output 11/03/24 11/03/24 11/04/24 15:00 23:00 07:00 Intake Total 1000 ml 1575 ml Balance 1000 ml 1575 ml medications Current Medications Medications Dose Ordered Sig/Vega Route Start Time Stop Time Status Last Admin Dose Admin Vancomycin HCl 0 ml @ 0 mls/hr UD IV 11/04/24 02:45 Diagnostic Test (Pha) 1 strip ACHS 11/04/24 11:30 11/04/24 11:12 1 STRIP Dextrose 50 ml UD PRN IV 11/04/24 07:45 Sodium Chloride 10 ml Q8HR IV 11/04/24 14:00 Ondansetron HCl 4 mg Q4HP PRN IV 11/04/24 07:45 Morphine Sulfate 2 mg Q4HPRN PRN IV 11/04/24 07:45 Nitroglycerin 0.4 mg Q5MINP PRN SL 11/04/24 07:45 Morphine Sulfate 2 mg Q30M PRN IV 11/04/24 07:45 Pantoprazole Sodium 40 mg DAILY IV 11/04/24 10:00 11/04/24 10:41 40 MG Albuterol 2.5 mg Q4HPRN PRN NEB 11/04/24 07:45 11/04/24 12:55 2.5 MG Ipratropium [place] 0.5 mg Q6HWA NEB 11/04/24 12:00 11/04/24 12:55 0.5 MG Hydralazine HCl 10 mg Q6HP PRN IV 11/04/24 07:45 Meropenem 50 ml @ 17 mls/hr Q8HR IV 11/04/24 14:00 Lactulose 300 ml Q8HR [place] 11/04/24 14:00 Insulin Human Regular ACHS SC 11/04/24 09:30 11/04/24 09:49 3 UNITS Vancomycin HCl 150 ml @ 150 mls/hr Q10H IV 11/04/24 11:00 Cancel Vancomycin HCl 750 mg/Dextrose 250 ml @ 250 mls/hr Q10H IV 11/04/24 11:00 11/04/24 11:35 250 MLS/HR Examination Pt is lying on bed, contracted, cachectic, limited exam due to patient clinical status General Appearance: Confused, Oriented X2, Cooperative, moderate distress HEENT: Atraumatic, Mucous membranes dry Respiratory: decreased breath sounds right-sided Cardiovascular: Regular rate, Normal S1, Normal S2, No murmurs Abdominal: Active bowel sounds, Soft, no distention, no tenderness Extremities: No edema, Normal pulses, No tenderness/swelling Skin: No Significant rash, except past surgical scars Neuro: Normal speech, sensorimotor deficits none Psych/Mental Status: Mental status NL, Mood NL Nurse was there as sharperone during examination laboratory and microbiology Laboratory Tests 11/04/24 07:10 Test 11/04/24 07:10 Range/Units Serum Glucose 238 H 74-106 mg/dL Labs and/or images reviewed: Labs reviewed by me, Image(s) reviewed by me Problem List/Assessment/Plan Problem List/Assessment/Plan # acute toxic or metabolic encephalopathy likely due to pneumonia # sepsis likely due to pneumonia # likely aspiration pneumonia # acute hypoxic respiratory failure likely due to above - currently on 6L oxygen NC - Head CT showed no acute intracranial abnormalities. Liver ultrasound showed heterogeneous coarse echotexture of liver. - CXR showed patchy opacities throughout the right lung. - Currently on IVF, vancomycin and meropenem. - Ordered pancultures - elevated lactase, monitor lab # Liver cirrhosis # transaminitis # Hyperammonemia # anemia and thrombocytopenia likely due to above - monitor lab for now - currently on lactulose - Liver ultrasound showed heterogeneous coarse echotexture of liver # Acute complicated UTI - Ordered urine culures - continue current antibiotic regimen # uncontrolled type 2 DM with HbA1c 11.6 - monitor lab - sliding scale # Hypertension - continue hydralazine 10 mg IV q.6h p.r.n. # anemia of chronic disease - Monitor CBC # Severe malnutrition - ordered dietary consult SCDs for now Protonix NPO for now reconciled home meds Goals of care discussed with the patient and daughter for more than 27 minutes: Full code status Case management discussed with Dr. Kam, patient, daughter and nurse Plan discussed with: Patient My Orders My Orders Orders - MARYSOL VILLELA Procedure Category Date Status Time Sequential [facility] 11/04/24 Transmitted Compression Device 14:26 Date of Service: Nov 04, 2024 Billing Provider: MARTINA KAM MD Common Visit Codes: [id number] INP/OBS CARE(HIGH) Secondary Visit Codes: [id number] CARE PLAN 30 MINUTES MARYSOL VILLELA Nov 04, 2024 14:36 MARTINA KAM MD Nov 05, 2024 18:14
--- NOTE | 2024-11-04 20:30 | DVHINCON2 ---
Date of service: Nov 04, [address] Silva Reason for Consultation Hepatic encephalopathy History of Present Illness Theo Lora is a 59-year-old male with PMH of alcoholic liver cirrhosis, HTN, type 2 DM presented to the ED by EMS from nursing facility with the chief complaints fever, cough and altered mental status since yesterday. Her daughter reported he will get confused whenever his ammonia is high and he is being sick for last 4 months. Patient recently discharged from this facility after treating for hepatic encephalopathy. Per her daughter this is not patient's baseline. No active GI bleeding is reported and patient is somewhat lethargic Past Medical History alcoholic cirrhosis, hypertension, diabetes mellitus type 2 Past Surgical History Negative Family History: FH: pancreatic cancer G8 MOTHER Allergies: Coded Allergies: NO KNOWN ALLERGIES (Unverified , 07/10/24) Home Meds Active Scripts Glipizide (Glipizide) 5 Mg Tab, 1 TAB PO DAILY, #90 TAB 3 Refills Prov:NIKOLAS MACIAS 07/11/24 Metformin Hydrochloride (METFORMIN HCL ER) 500 Mg Tab, 1 TAB PO DAILY, #90 TAB 1 Refill Prov:NIKOLAS MACIAS 07/11/24 Current Medications Current Medications Medications (Trade) Dose Ordered Sig/Vega Route PRN Reason Start Time Stop Time Status Last Admin Sodium Chloride (Saline Lock Ns) 10 ml Q8HR IV 11/04/24 06:00 11/04/24 07:42 DC 11/04/24 06:03 Ondansetron HCl (Zofran) 4 mg Q4HP PRN IV NAUSEA / VOMITING 11/04/24 01:45 11/04/24 07:42 DC Morphine Sulfate 2 mg Q4HPRN PRN IV SEVERE PAIN (7-10 PAIN SCALE) 11/04/24 01:45 11/04/24 07:42 DC Nitroglycerin (Ntrostat Sublingual) 0.4 mg Q5MINP PRN SL FOR CHEST PAIN 11/04/24 01:45 11/04/24 07:42 DC Morphine Sulfate 2 mg Q30M PRN IV FOR CHEST PAIN 11/04/24 01:45 11/04/24 07:43 DC Ceftriaxone Sodium 50 ml @ 100 mls/hr DAILY@09 IV 11/04/24 09:00 11/04/24 02:25 DC Azithromycin 250 ml @ 125 mls/hr DAILY IV 11/04/24 10:00 11/04/24 02:25 DC Sodium Chloride 1,000 ml @ 125 mls/hr Q8H IV 11/04/24 02:00 11/04/24 02:25 DC Pantoprazole Sodium (Protonix) 40 mg DAILY IV 11/04/24 10:00 11/04/24 07:43 DC Albuterol (Ventolin Medneb) 2.5 mg Q4HPRN PRN NEB SHORTNESS OF BREATH 11/04/24 02:00 11/04/24 07:43 DC 11/04/24 07:22 Ipratropium [place] (Atrovent Medneb) 0.5 mg Q6HWA NEB 11/04/24 06:00 11/04/24 07:43 DC 11/04/24 07:22 Lactulose 30 ml BID PO 11/04/24 10:00 11/04/24 03:03 DC Diagnostic Test (Pha) (Accu-Chek Comfort Curve T) 1 strip ACHS 11/04/24 07:00 11/04/24 07:40 DC 11/04/24 07:13 Insulin Human Regular (InsuLIN R) ACHS SC 11/04/24 07:00 11/04/24 07:40 DC Dextrose 50 ml UD PRN IV Blood Sugar LESS THAN 60 11/04/24 02:15 11/04/24 07:40 DC Hydralazine HCl (Apresoline Injection) 10 mg Q6HP PRN IV SBP>150 11/04/24 02:15 11/04/24 07:43 DC Meropenem 50 ml @ 17 mls/hr Q8HR IV 11/04/24 14:00 11/04/24 07:44 DC Vancomycin HCl 0 ml @ 0 mls/hr UD IV 11/04/24 02:30 11/04/24 03:17 DC Lactulose 300 ml Q6HR LA 11/04/24 12:00 11/04/24 03:12 DC Lactulose 300 ml Q8HR LA 11/04/24 06:00 11/04/24 07:44 DC Vancomycin HCl 0 ml @ 0 mls/hr UD IV 11/04/24 02:45 Diagnostic Test (Pha) (Accu-Chek Comfort Curve T) 1 strip ACHS 11/04/24 11:30 11/04/24 19:43 Insulin Human Regular (InsuLIN R) ACHS SC 11/04/24 11:30 11/04/24 09:17 DC Dextrose 50 ml UD PRN IV Blood Sugar LESS THAN 60 11/04/24 07:45 Sodium Chloride (Saline Lock Ns) 10 ml Q8HR IV 11/04/24 14:00 11/04/24 14:07 Ondansetron HCl (Zofran) 4 mg Q4HP PRN IV NAUSEA / VOMITING 11/04/24 07:45 Morphine Sulfate 2 mg Q4HPRN PRN IV SEVERE PAIN (7-10 PAIN SCALE) 11/04/24 07:45 Nitroglycerin (Ntrostat Sublingual) 0.4 mg Q5MINP PRN SL FOR CHEST PAIN 11/04/24 07:45 Morphine Sulfate 2 mg Q30M PRN IV FOR CHEST PAIN 11/04/24 07:45 Pantoprazole Sodium (Protonix) 40 mg DAILY IV 11/04/24 10:00 11/04/24 10:41 Albuterol (Ventolin Medneb) 2.5 mg Q4HPRN PRN NEB SHORTNESS OF BREATH 11/04/24 07:45 11/04/24 12:55 Ipratropium [place] (Atrovent Medneb) 0.5 mg Q6HWA NEB 11/04/24 12:00 11/04/24 19:04 Hydralazine HCl (Apresoline Injection) 10 mg Q6HP PRN IV SBP>150 11/04/24 07:45 Meropenem 50 ml @ 17 mls/hr Q8HR IV 11/04/24 14:00 11/04/24 14:22 Lactulose 300 ml Q8HR LA 11/04/24 14:00 Insulin Human Regular (InsuLIN R) ACHS SC 11/04/24 11:30 11/04/24 09:19 DC Insulin Human Regular (InsuLIN R) ACHS SC 11/04/24 09:30 11/04/24 09:49 Vancomycin HCl 150 ml @ 150 mls/hr Q10H IV 11/04/24 11:00 Cancel Vancomycin HCl 750 mg/Dextrose 250 ml @ 250 mls/hr Q10H IV 11/04/24 11:00 11/04/24 11:35 Vital Signs Vital Signs Date Time Temp Pulse Resp B/P (MAP) Pulse Ox O2 Delivery O2 Flow Rate FiO2 11/04/24 20:00 81 11/04/24 19:47 98.4 13 110/63 (79) 97 98.4 11/04/24 19:04 Room Air* 0 21 Physical Exam Pt is lying on bed on his right side, lethargic, cachectic, General Appearance: Confused, Oriented X2, Cooperative, mild distress HEENT: Atraumatic, Mucous membranes dry Respiratory: decreased breath sounds right-sided Cardiovascular: Regular rate, Normal S1, Normal S2, No murmurs Abdominal: Active bowel sounds, Soft, no distention, no tenderness Extremities: No edema, Normal pulses, No tenderness/swelling Skin: No Significant rash, except past surgical scars Neuro: Normal speech, sensorimotor deficits none Labs/Diagnostic Data Labs Test 11/04/24 19:41 11/04/24 10:45 11/04/24 10:44 11/04/24 07:10 Range/Units POC Glucose 126 H 70-106 mg/dl Influenza Type A Antigen Negative Negative Influenza Type B Antigen Negative Negative SARS-CoV-2 Antigen (Rapid) Negative NEGATIVE Urine Color Light-orange Yellow Urine Clarity Turbid H Clear Urine pH 5.5 5.0-9.0 Urine Specific Cook 1.017 1.001-1.035 Urine Protein Trace H Negative Urine Ketones Negative Negative Urine Blood 2+ H Negative /uL Urine Nitrite 2+ H Negative Urine Bilirubin Negative Negative Urine Urobilinogen Normal Negative mg/dL Urine Leukocyte Esterase 3+ Negative /uL Urine RBC 27 0 - 3 /hpf Urine WBC 369 0 - 3 /hpf Urine WBC Clumps Present None Seen /hpf Urine Squamous Epithelial Cells Few <5 /hpf Urine Bacteria Few H None Seen /hpf Urine Glucose Normal Normal mg/dL Urine Opiates Screen Neg NEGATIVE Urine Fentanyl Screen Neg NEGATIVE Urine Barbiturates Screen Neg NEGATIVE Urine Phencyclidine Screen Neg NEGATIVE Urine Amphetamines Screen Neg NEGATIVE Urine Benzodiazepines Screen Neg NEGATIVE Urine Cocaine Screen Neg NEGATIVE Urine Cannabinoids Screen Neg NEGATIVE White Blood Count 10.7 4.4-10.8 10^3/uL Red Blood Count 2.95 L 4.5-5.90 10^6/uL Hemoglobin 10.0 L 13.5-17.5 g/dL Hematocrit 28.6 L 41.0-53.0 % Mean Corpuscular Volume 97.1 80.0-100.0 fL Mean Corpuscular Hemoglobin 34.0 H 28.0-32.0 pg Mean Corpuscular Hemoglobin Concent 35.0 32.0-36.0 g/dL Red Cell Distribution Width 16.2 H 11.8-14.3 % Platelet Count 72 L 140-450 10^3/uL Mean Platelet Volume 8.4 6.9-10.8 fL Neutrophils (%) (Auto) 80.7 H 37.0-80.0 % Lymphocytes (%) (Auto) 7.6 L 10.0-50.0 % Monocytes (%) (Auto) 11.5 0.0-12.0 % Eosinophils (%) (Auto) 0.0 0.0-7.0 % Basophils (%) (Auto) 0.2 0.0-2.0 % Neutrophils # (Auto) 8.6 1.6-8.6 10 ^3/uL Lymphocytes # (Auto) 0.8 0.4-5.4 10 ^3/uL Monocytes # (Auto) 1.2 0-1.3 10 ^3/uL Eosinophils # (Auto) 0 0-0.8 10 ^3/uL Basophils # (Auto) 0 0-0.2 10 ^3/uL Nucleated Red Blood Cells 0.0 % Prothrombin Time 15.6 H 9.3-11.8 sec Prothrombin Time INR 1.52 H 0.9-1.15 Sodium Level 141 136-145 mmol/L Potassium Level 3.5 3.5-5.1 mmol/L Chloride Level 114 H 98-107 mmol/L Carbon Dioxide Level 19 L 20-31 mmol/L Anion Gap 8 5-15 Blood Urea Nitrogen 17 9-23 mg/dL Creatinine 0.69 L 0.700-1.30 mg/dL Glomerular Filtration Rate Calc 106 >90 mL/min BUN/Creatinine Ratio 24.6 H 10.0-20.0 Serum Glucose 238 H 74-106 mg/dL Calcium Level 8.2 L 8.7-10.4 mg/dL Magnesium Level 2.1 1.6-2.6 mg/dL Total Bilirubin 1.7 H 0.2-1.0 mg/dL Aspartate Amino Transferase (AST) 69 H 13-40 U/L Alanine Aminotransferase (ALT) 68 H 7-40 U/L Alkaline Phosphatase 201 H 46-116 U/L Ammonia 44 H 11-32 umol/L Total Protein 5.1 L 5.7-8.2 g/dL Albumin 2.5 L 3.2-4.8 g/dL Test 11/04/24 03:50 11/04/24 02:34 11/04/24 02:00 11/03/24 21:26 Range/Units D-Dimer, Quantitative 8.31 H 0.0-0.49 mg/L FEU Blood Gas Specimen Type Arterial Blood Gas Sample Site Left radial Blood Gas Patient Temperature 37.0 Arterial Blood Date Drawn [id number] Arterial Blood pH 7.435 7.350-7.450 Arterial Blood Partial Pressure CO2 24.0 L 35.0-48.0 mmHg Arterial Blood Partial Pressure O2 107.1 83.0-108.0 mmHg Arterial Blood HCO3 15.8 L 21.0-28.0 mmol/L Arterial Blood Oxygen Saturation 97.7 94.0-98.0 % Arterial Blood Base Excess -7.1 L -2.0-3.0 mmol/L Arterial Blood Oxyhemoglobin 96.8 94.0-98.0 % Arterial Blood Carboxyhemoglobin 0.3 L 0.5-1.5 % Arterial Blood Methemoglobin 0.6 0.0-1.5 % Henrry Test Yes Blood Gas Total Hemoglobin 10.10 L 13.5-17.5 g/dL Blood Gas Liter Flow 2.00 Blood Gas Modality Nasal cannula Blood Gas Spontaneous Rate 24 FiO2 % 28.0 Lactic Acid Level 4.4 *H 0.4-2.0 mmol/L Troponin I High Sensitivity 12 </=54 ng/L Thyroid Stimulating Hormone (TSH) 1.48 0.55-4.78 uIU/mL Plasma/Serum Blood Alcohol < 3.0 <10 mg/dL B-Type Natriuretic Peptide 99.74 0-100 pg/mL Lipase 22 12-53 U/L Liver USG IMPRESSION: 1. Liver: Liver measures 10.84 cm with heterogeneous coarse echotexture, suggesting liver parenchymal disease. 2. Gallbladder, Pancreas, and Right Kidney: Visualization of the gallbladder, right kidney, and pancreas is limited by bowel gas. Problems(with codes): (1) UTI (urinary tract infection) (2) Metabolic encephalopathy (3) Multifocal pneumonia (4) Sepsis (5) Elevated liver enzymes (6) Generalized weakness (7) Hepatic encephalopathy (8) Altered mental status (9) Alcoholic cirrhosis Plan/Recommendation Plan Hepatic encephalopathy and liver enzymes are improving and numbers are trending down Patient is on antibiotic for sepsis and possible multifocal pneumonia possible aspiration Continue IV antibiotics Continue oral lactulose Continue IV PPI Monitor labs Nutritional support as needed; possible IV Clinimix until patient can tolerate p.o. If patient is not able to drink the oral lactulose and we will give him a lactulose enema Review previous records of any endoscopy or colonoscopy Plan discussed with: Patient, Daughter TREVIN PATEL MD Nov 04, 2024 20:30
[2024-11-05] VITALS (13 sets, daily range): BP systolic 106–155; BP diastolic 46–86; PULSE 62–87; RESP 16–20; TEMP 97.3–98.8; O2SAT 96–100
[2024-11-05 07:08] LABS: Basophils # (auto) 0 10 ^3/uL (0-0.2); Basophils % (auto) 0.2 % (0.0-2.0); Eosinophils # (auto) 0.1 10 ^3/uL (0-0.8); Eosinophils % (auto) 0.8 % (0.0-7.0); Hematocrit 28.6 % (41.0-53.0); Lymphocytes # (auto) 1.3 10 ^3/uL (0.4-5.4); Lymphocytes % (auto) 11.9 % (10.0-50.0); Mean Corpuscular Hemoglobin 33.7 pg (28.0-32.0); Mean Corpuscular Hgb Conc. 34.9 g/dL (32.0-36.0); Mean Corpuscular Volume 96.5 fL (80.0-100.0); Monocytes # (auto) 1.2 10 ^3/uL (0-1.3); Monocytes % (auto) 10.4 % (0.0-12.0); Neutrophils # (auto) 8.7 10 ^3/uL (1.6-8.6); Neutrophils % (auto) 76.7 % (37.0-80.0); Platelet Count (auto) 91 10^3/uL (140-450); Red Blood Cells 2.96 10^6/uL (4.5-5.90); Red Cell Distribution Width 16.8 % (11.8-14.3); White Blood Cell 11.3 10^3/uL (4.4-10.8)
[2024-11-05 07:35] LABS: Anion Gap 6 (5-15); BUN/Creatinine Ratio 21.2 (10.0-20.0); Blood Urea Nitrogen 11 mg/dL (9-23); Calcium 8.7 mg/dL (8.7-10.4); Carbon Dioxide 22 mmol/L (20-31); Sodium 140 mmol/L (136-145)
[2024-11-05 07:39] LABS: Alanine Aminotransferase 53 U/L (7-40); Albumin 2.5 g/dL (3.2-4.8); Alkaline Phosphatase 186 U/L (46-116); Aspartate Aminotransferase 41 U/L (13-40); Bilirubin, Total 1.6 mg/dL (0.2-1.0); Chloride 112 mmol/L (98-107); Glucose 150 mg/dL (74-106); Potassium 3.4 mmol/L (3.5-5.1); Total Protein 5.2 g/dL (5.7-8.2)
[2024-11-05] MEDS: POTASSIUM EFFERVESENT TAB 25 MEQ PO ONE ×2 (09:12→09:30)
--- NOTE | 2024-11-05 13:53 | DVHPN2 ---
Progress Note - Dictate Date Seen: Nov 05, 2024 Medical Necessity Reason Pt with a Central, PICC or Fol: No Subjective No new complaints Patient is still lethargic Ammonia level is improving He is alert oriented x2 Indonesian-speaking Patient underwent PT and wound care He has poor appetite currently on a pureed diet vital signs Vital Sign Date Time Temp Pulse Resp B/P (MAP) Pulse Ox O2 Delivery O2 Flow Rate FiO2 11/05/24 11:45 75 18 98 11/05/24 09:00 98.4 129/64 (85) 98.4 11/05/24 08:00 Room Air* 0 21 Total Intake and Output 11/04/24 11/04/24 11/05/24 14:59 22:59 06:59 Intake Total 550 ml 275 ml 0 ml Output Total 1000 ml 450 ml Balance 550 ml -725 ml -450 ml medications Current Medications Medications Dose Ordered Sig/Vega Route Start Time Stop Time Status Last Admin Dose Admin Vancomycin HCl 0 ml @ 0 mls/hr UD IV 11/04/24 02:45 Diagnostic Test (Pha) 1 strip ACHS 11/04/24 11:30 11/05/24 11:56 1 STRIP Dextrose 50 ml UD PRN IV 11/04/24 07:45 Sodium Chloride 10 ml Q8HR IV 11/04/24 14:00 11/05/24 06:26 10 ML Ondansetron HCl 4 mg Q4HP PRN IV 11/04/24 07:45 Morphine Sulfate 2 mg Q4HPRN PRN IV 11/04/24 07:45 Nitroglycerin 0.4 mg Q5MINP PRN SL 11/04/24 07:45 Morphine Sulfate 2 mg Q30M PRN IV 11/04/24 07:45 Pantoprazole Sodium 40 mg DAILY IV 11/04/24 10:00 11/05/24 09:03 40 MG Albuterol 2.5 mg Q4HPRN PRN NEB 11/04/24 07:45 11/04/24 12:55 2.5 MG Ipratropium [place] 0.5 mg Q6HWA NEB 11/04/24 12:00 11/05/24 06:46 0.5 MG Hydralazine HCl 10 mg Q6HP PRN IV 11/04/24 07:45 Meropenem 50 ml @ 17 mls/hr Q8HR IV 11/04/24 14:00 11/05/24 06:00 17 MLS/HR Lactulose 300 ml Q8HR HI 11/04/24 14:00 Insulin Human Regular ACHS SC 11/04/24 09:30 11/05/24 12:02 3 UNITS Vancomycin HCl 150 ml @ 150 mls/hr Q10H IV 11/04/24 11:00 Cancel Vancomycin HCl 750 mg/Dextrose 250 ml @ 250 mls/hr Q10H IV 11/04/24 11:00 11/05/24 06:26 250 MLS/HR objective Pt is lying on bed awake lethargic, cachectic, General Appearance: Confused, Oriented X2, Cooperative, mild distress HEENT: Atraumatic, Mucous membranes dry Respiratory: decreased breath sounds right-sided Cardiovascular: Regular rate, Normal S1, Normal S2, No murmurs Abdominal: Active bowel sounds, Soft, no distention, no tenderness Extremities: No edema, Normal pulses, No tenderness/swelling Skin: No Significant rash, except past surgical scars Neuro: Normal speech, sensorimotor deficits none laboratory and microbiology Laboratory Tests 11/05/24 06:49 Test 11/05/24 06:49 Range/Units Serum Glucose 150 H 74-106 mg/dL Liver USG IMPRESSION: 1. Liver: Liver measures 10.84 cm with heterogeneous coarse echotexture, suggesting liver parenchymal disease. 2. Gallbladder, Pancreas, and Right Kidney: Visualization of the gallbladder, right kidney, and pancreas is limited by bowel gas. Problems(with codes): (1) Elevated liver enzymes (2) Altered mental status (3) Alcoholic cirrhosis (4) Generalized weakness (5) Hepatic encephalopathy (6) UTI (urinary tract infection) (7) Multifocal pneumonia (8) Metabolic encephalopathy (9) Sepsis (10) Dehydration Prognosis Plan Continue nutritional support If the patient is able to tolerate we will change it to oral lactulose 30 mL p.o. daily Continue IV antibiotics for pneumonia and wound care PT and wound care ongoing Vitamin K, thiamine and folic acid Hepatitis profile negative on previous admission Dietary Evaluation Review Comments: Pt is asking for food, has an appetite to eat (the refusing food>3 days is resolved), encourage PO intake and monitor intake to meet 75% of his needs. Consider CCHO-60 diet for improved DM controll. Avoid alcohol Expected Outcomes/Goals: improved nutrition related lab values. Plan discussed with: Patient TREVIN PATEL MD Nov 05, 2024 13:53
--- NOTE | 2024-11-05 15:46 | DVHPNRES ---
Progress Note Date Seen: Nov 05, 2024 Resident Creating Document: MARYSOL VILLELA RESIDENT Medical Necessity Reason Pt with a Central, PICC or Fol: Yes The following are medically ne: Suazo Catheter Subjective Review of Systems Theo Lora is a 59-year-old male with PMH of alcoholic liver cirrhosis, HTN, type 2 DM presented to the ED by EMS from nursing facility with the chief complaints fever, cough and altered mental status Patient seen and examined at the bedside. Patient is confused, oriented x2 and not able to respond properly. currently on room air. Supportive treatment, on pureed diet. Pending PT evaluation. Preliminary urine culture showed more than [id number] CFU Gram-negative rods Objective vital signs Vital Sign Date Time Temp Pulse Resp B/P (MAP) Pulse Ox O2 Delivery O2 Flow Rate FiO2 11/05/24 13:00 98.7 62 19 120/68 (85) 100 98.7 11/05/24 08:00 Room Air* 0 21 Total Intake and Output 11/04/24 11/04/24 11/05/24 15:00 23:00 07:00 Intake Total 550 ml 275 ml 0 ml Output Total 1000 ml 450 ml Balance 550 ml -725 ml -450 ml medications Current Medications Medications Dose Ordered Sig/Vega Route Start Time Stop Time Status Last Admin Dose Admin Vancomycin HCl 0 ml @ 0 mls/hr UD IV 11/04/24 02:45 Diagnostic Test (Pha) 1 strip ACHS 11/04/24 11:30 11/05/24 11:56 1 STRIP Dextrose 50 ml UD PRN IV 11/04/24 07:45 Sodium Chloride 10 ml Q8HR IV 11/04/24 14:00 11/05/24 14:14 10 ML Ondansetron HCl 4 mg Q4HP PRN IV 11/04/24 07:45 Morphine Sulfate 2 mg Q4HPRN PRN IV 11/04/24 07:45 Nitroglycerin 0.4 mg Q5MINP PRN SL 11/04/24 07:45 Morphine Sulfate 2 mg Q30M PRN IV 11/04/24 07:45 Pantoprazole Sodium 40 mg DAILY IV 11/04/24 10:00 11/05/24 09:03 40 MG Albuterol 2.5 mg Q4HPRN PRN NEB 11/04/24 07:45 11/04/24 12:55 2.5 MG Ipratropium [place] 0.5 mg Q6HWA NEB 11/04/24 12:00 11/05/24 06:46 0.5 MG Hydralazine HCl 10 mg Q6HP PRN IV 11/04/24 07:45 Meropenem 50 ml @ 17 mls/hr Q8HR IV 11/04/24 14:00 11/05/24 14:12 17 MLS/HR Lactulose 300 ml Q8HR NE 11/04/24 14:00 11/05/24 14:14 300 ML Insulin Human Regular ACHS SC 11/04/24 09:30 11/05/24 12:02 3 UNITS Vancomycin HCl 150 ml @ 150 mls/hr Q10H IV 11/04/24 11:00 Cancel Vancomycin HCl 750 mg/Dextrose 250 ml @ 250 mls/hr Q10H IV 11/04/24 11:00 11/05/24 06:26 250 MLS/HR Thiamine HCl 100 mg DAILY PO 11/06/24 10:00 Folic Acid 1 mg DAILY PO 11/06/24 10:00 Enteral Nutritional Formula 240 ml TIDWM PO 11/05/24 18:00 Examination General Appearance: Confused, Oriented X2, Cooperative, no distress HEENT: Atraumatic, Mucous membranes dry Respiratory: decreased breath sounds right-sided Cardiovascular: Regular rate, Normal S1, Normal S2, No murmurs Abdominal: Active bowel sounds, Soft, no distention, no tenderness Extremities: No edema, Normal pulses, No tenderness/swelling Skin: No Significant rash, except past surgical scars Neuro: Normal speech, sensorimotor deficits none Psych/Mental Status: Mental status NL, Mood NL [facility] examination laboratory and microbiology Laboratory Tests 11/05/24 06:49 Test 11/05/24 06:49 Range/Units Serum Glucose 150 H 74-106 mg/dL Microbiology Date/Time Source Procedure Growth Status 11/04/24 10:44 Voided Urine Urine Culture - Preliminary Resulted 11/04/24 03:50 Blood Blood Culture - Preliminary NO GROWTH AFTER 24 HOURS OF INCUBATION. Resulted Labs and/or images reviewed: Labs reviewed by me, Image(s) reviewed by me Problem List/Assessment/Plan Problem List/Assessment/Plan # acute toxic or metabolic encephalopathy likely due to pneumonia # sepsis likely due to pneumonia # likely aspiration pneumonia # acute hypoxic respiratory failure likely due to above - currently on 6L oxygen NC - Head CT showed no acute intracranial abnormalities. Liver ultrasound showed heterogeneous coarse echotexture of liver. - CXR showed patchy opacities throughout the right lung. - Currently on IVF, vancomycin and meropenem. - Ordered pancultures - elevated lactase, monitor lab - preliminary blood culture showed no growth # Liver cirrhosis # transaminitis # Hyperammonemia # anemia and thrombocytopenia likely due to above - monitor lab for now - currently on lactulose - Liver ultrasound showed heterogeneous coarse echotexture of liver # Acute complicated UTI - Ordered urine culures - continue current antibiotic regimen - Preliminary urine culture showed more than [id number] CFU Gram-negative rods # uncontrolled type 2 DM with HbA1c 11.6 - monitor lab - sliding scale # Hypertension - continue hydralazine 10 mg IV q.6h p.r.n. # anemia of chronic disease - Monitor CBC # Severe malnutrition - ordered dietary consult SCDs for now Protonix NPO for now reconciled home meds Goals of care discussed with the patient and daughter for more than 27 minutes: Full code status Case management discussed with Dr. Tolentino, patient, daughter and nurse Plan discussed with: Patient My Orders My Orders Orders - MARYSOL VILLELA RESIDENT Procedure Category Date Status Time Mrsa Screen KAILYN 11/04/24 Logged 23:58 * Dietary Consult CONS 11/05/24 Transmitted 00:01 Pureed DIET 11/05/24 Transmitted Breakfast Pt Request For Service PT 11/05/24 Logged 09:40 Dietary Evaluation Review Comments: Pt is asking for food, has an appetite to eat (the refusing food>3 days is resolved), encourage PO intake and monitor intake to meet 75% of his needs. Consider CCHO-60 diet for improved DM controll. Avoid alcohol Expected Outcomes/Goals: improved nutrition related lab values. Date of Service: Nov 05, 2024 Billing Provider: MARTINA TOLENTINO MD Common Visit Codes: [id number] INP/OBS CARE(HIGH) MARYSOL VILLELA RESIDENT Nov 05, 2024 15:46 MARTINA TOLENTINO MD Nov 05, 2024 18:15
[2024-11-05] MEDS: Ensure Enlive Strawberry 8oz Bottle PO SCH (18:00)
[2024-11-05] MEDS: MORPHINE SULFATE INJ 2 MG/ml SYRG IV PRN (20:56)
[2024-11-05] MEDS: LACTULOSE 20Gm/30ML SOLN PO SCH (22:38)
[2024-11-06] VITALS (17 sets, daily range): BP systolic 120–144; BP diastolic 59–75; PULSE 77–103; RESP 16–20; TEMP 98.1–99.3; O2SAT 96–100
[2024-11-06 08:23] LABS: Anion Gap 4 (5-15); BUN/Creatinine Ratio 21.2 (10.0-20.0); Blood Urea Nitrogen 11 mg/dL (9-23); Carbon Dioxide 25 mmol/L (20-31); Potassium 4.2 mmol/L (3.5-5.1); Sodium 137 mmol/L (136-145)
[2024-11-06 08:24] LABS: Alanine Aminotransferase 67 U/L (7-40); Albumin 2.4 g/dL (3.2-4.8); Alkaline Phosphatase 250 U/L (46-116); Aspartate Aminotransferase 75 U/L (13-40); Bilirubin, Total 1.4 mg/dL (0.2-1.0); Calcium 8.4 mg/dL (8.7-10.4); Chloride 108 mmol/L (98-107); Glucose 142 mg/dL (74-106); Total Protein 5.1 g/dL (5.7-8.2)
[2024-11-06] MEDS: THIAMINE HCL 100 MG TAB PO SCH (11:10)
[2024-11-06] MEDS: FOLIC ACID 1 MG TAB PO SCH (11:10)
[2024-11-06] MEDS: ERTAPENEM SOD INJ 1 GM in SODIUM CHL 0.9% 50 ML IV SCH (11:31)
--- NOTE | 2024-11-06 12:45 | DVHDSRES ---
Discharge Summary Date of Admission Resident Creating Document: MARYSOL VILLELA RESIDENT Nov 04, 2024 at 01:46 Date of Discharge: Nov 06, 2024 Admitting Diagnosis Pneumonia and sepsis Labs/Diagnostic Data: Laboratory Results Test 11/06/24 11:28 11/06/24 06:47 11/05/24 16:33 11/05/24 06:49 POC Glucose 268 mg/dl (70-106) Sodium Level 137 mmol/L (136-145) Potassium Level 4.2 mmol/L (3.5-5.1) Chloride Level 108 mmol/L (98-107) Carbon Dioxide Level 25 mmol/L (20-31) Anion Gap 4 (5-15) Blood Urea Nitrogen 11 mg/dL (9-23) Creatinine 0.52 mg/dL (0.700-1.30) Glomerular Filtration Rate Calc 115 mL/min (>90) BUN/Creatinine Ratio 21.2 (10.0-20.0) Serum Glucose 142 mg/dL (74-106) Calcium Level 8.4 mg/dL (8.7-10.4) Total Bilirubin 1.4 mg/dL (0.2-1.0) Aspartate Amino Transferase (AST) 75 U/L (13-40) Alanine Aminotransferase (ALT) 67 U/L (7-40) Alkaline Phosphatase 250 U/L (46-116) Total Protein 5.1 g/dL (5.7-8.2) Albumin 2.4 g/dL (3.2-4.8) Vancomycin Level Trough 16.7 ug/mL (5-10) White Blood Count 11.3 10^3/uL (4.4-10.8) Red Blood Count 2.96 10^6/uL (4.5-5.90) Hemoglobin 10.0 g/dL (13.5-17.5) Hematocrit 28.6 % (41.0-53.0) Mean Corpuscular Volume 96.5 fL (80.0-100.0) Mean Corpuscular Hemoglobin 33.7 pg (28.0-32.0) Mean Corpuscular Hemoglobin Concent 34.9 g/dL (32.0-36.0) Red Cell Distribution Width 16.8 % (11.8-14.3) Platelet Count 91 10^3/uL (140-450) Mean Platelet Volume 8.8 fL (6.9-10.8) Neutrophils (%) (Auto) 76.7 % (37.0-80.0) Lymphocytes (%) (Auto) 11.9 % (10.0-50.0) Monocytes (%) (Auto) 10.4 % (0.0-12.0) Eosinophils (%) (Auto) 0.8 % (0.0-7.0) Basophils (%) (Auto) 0.2 % (0.0-2.0) Neutrophils # (Auto) 8.7 10 ^3/uL (1.6-8.6) Lymphocytes # (Auto) 1.3 10 ^3/uL (0.4-5.4) Monocytes # (Auto) 1.2 10 ^3/uL (0-1.3) Eosinophils # (Auto) 0.1 10 ^3/uL (0-0.8) Basophils # (Auto) 0 10 ^3/uL (0-0.2) Nucleated Red Blood Cells 0.0 % Ammonia 22 umol/L (11-32) Test 11/04/24 10:45 11/04/24 10:44 11/04/24 07:10 11/04/24 03:50 Influenza Type A Antigen Negative (Negative) Influenza Type B Antigen Negative (Negative) SARS-CoV-2 Antigen (Rapid) Negative (NEGATIVE) Urine Color Light-orange (Yellow) Urine Clarity Turbid (Clear) Urine pH 5.5 (5.0-9.0) Urine Specific [place] 1.017 (1.001-1.035) Urine Protein Trace (Negative) Urine Ketones Negative (Negative) Urine Blood 2+ /uL (Negative) Urine Nitrite 2+ (Negative) Urine Bilirubin Negative (Negative) Urine Urobilinogen Normal mg/dL (Negative) Urine Leukocyte Esterase 3+ /uL (Negative) Urine RBC 27 /hpf (0 - 3) Urine WBC 369 /hpf (0 - 3) Urine WBC Clumps Present /hpf (None Seen) Urine Squamous Epithelial Cells Few /hpf (<5) Urine Bacteria Few /hpf (None Seen) Urine Glucose Normal mg/dL (Normal) Urine Opiates Screen Neg (NEGATIVE) Urine Fentanyl Screen Neg (NEGATIVE) Urine Barbiturates Screen Neg (NEGATIVE) Urine Phencyclidine Screen Neg (NEGATIVE) Urine Amphetamines Screen Neg (NEGATIVE) Urine Benzodiazepines Screen Neg (NEGATIVE) Urine Cocaine Screen Neg (NEGATIVE) Urine Cannabinoids Screen Neg (NEGATIVE) Prothrombin Time 15.6 sec (9.3-11.8) Prothrombin Time INR 1.52 (0.9-1.15) Magnesium Level 2.1 mg/dL (1.6-2.6) D-Dimer, Quantitative 8.31 mg/L FEU (0.0-0.49) Test 11/04/24 02:34 11/04/24 02:00 11/03/24 21:26 Blood Gas Specimen Type Arterial Blood Gas Sample Site Left radial Blood Gas Patient Temperature 37.0 Arterial Blood Date Drawn Arterial Blood pH 7.435 (7.350-7.450) Arterial Blood Partial Pressure CO2 24.0 mmHg (35.0-48.0) Arterial Blood Partial Pressure O2 107.1 mmHg (83.0-108.0) Arterial Blood HCO3 15.8 mmol/L (21.0-28.0) Arterial Blood Oxygen Saturation 97.7 % (94.0-98.0) Arterial Blood Base Excess -7.1 mmol/L (-2.0-3.0) Arterial Blood Oxyhemoglobin 96.8 % (94.0-98.0) Arterial Blood Carboxyhemoglobin 0.3 % (0.5-1.5) Arterial Blood Methemoglobin 0.6 % (0.0-1.5) Henrry Test Yes Blood Gas Total Hemoglobin 10.10 g/dL (13.5-17.5) Blood Gas Liter Flow 2.00 Blood Gas Modality Nasal cannula Blood Gas Spontaneous Rate 24 FiO2 % 28.0 Lactic Acid Level 4.4 mmol/L (0.4-2.0) Troponin I High Sensitivity 12 ng/L (</=54) Thyroid Stimulating Hormone (TSH) 1.48 uIU/mL (0.55-4.78) Plasma/Serum Blood Alcohol < 3.0 mg/dL (<10) B-Type Natriuretic Peptide 99.74 pg/mL (0-100) Lipase 22 U/L (12-53) Other Laboratory Tests 11/06/24 06:47 11/05/24 06:49 Brief Hx & Hospital Course: Theo Lora is a 59-year-old male with PMH of alcoholic liver cirrhosis, HTN, type 2 DM presented to the ED by EMS from nursing facility with the chief complaints fever, cough and altered mental status since yesterday. Patient is poor historian, spoke with his daughter, reported patient has been having fever, shortness of breath, cough with altered mental status. Her daughter reported he will get confused whenever his ammonia is high and he is being sick for last 4 months. Patient recently discharged from this facility after treating for hepatic encephalopathy. Per her daughter this is not patient's baseline. On my assessment denies chest pain, diarrhea, nausea, vomiting, abdominal pain and other acute associated symptoms. Patient was diagnosed as acute metabolic encephalopathy and sepsis likely due to pneumonia which required hospital admission for further management. CXR showed patchy opacities throughout the right lung Head CT showed no acute intracranial abnormalities. Liver ultrasound showed heterogenous course of echotexture of liver. Due to acute hypoxic respiratory failure patient was on 6 L oxygen NC and received breathing treatments. Due to sepsis patient was continuously on IVF, vancomycin and meropenem. Patient was bicytopenia due to liver cirrhosis and mild transaminitis also due to same. GI financial sales consultant evaluated the patient due to cirrhosis and advised to continue current management. Patient was initially on NPO and advanced diet as tolerated. Gradually taper from the oxygen. Continuously monitor the lab for possible hyperammonemia and sepsis. Patient was diagnosed as ESBL positive acute complicated UTI, damage antibiotic based on the culture findings to Ertrapenem. Patient condition was improved, hemodynamically stable and in condition to be discharged to SNF Per physical therapy and IV antibiotics for 10 days. Plan discussed with the patient, family and agreed to the plan. Patient was advised about healthy lifestyle habits including diet, exercise and to follow up with PCP. General Appearance: Confused, Oriented X2, Cooperative, no distress HEENT: Atraumatic, Mucous membranes dry Respiratory: decreased breath sounds right-sided Cardiovascular: Regular rate, Normal S1, Normal S2, No murmurs Abdominal: Active bowel sounds, Soft, no distention, no tenderness Extremities: No edema, Normal pulses, No tenderness/swelling Skin: No Significant rash, except past surgical scars Neuro: Normal speech, sensorimotor deficits none Psych/Mental Status: Mental status NL, Mood NL Nurse was there as sharperone during examination Operations or Procedures HEAD CT No acute intracranial abnormality. Limited evaluation due to motion artifact and acquisition technique. LIVER ULTRASOUND IMPRESSION: 1. Liver: Liver measures 10.84 cm with heterogeneous coarse echotexture, suggesting liver parenchymal disease. 2. Gallbladder, Pancreas, and Right Kidney: Visualization of the gallbladder, right kidney, and pancreas is limited by bowel gas. Condition at Discharge: Stable Final Diagnosis/Problems List # acute toxic or metabolic encephalopathy likely due to pneumonia / UTI # sepsis likely due to pneumonia # likely aspiration pneumonia # acute hypoxic respiratory failure likely due to above # Liver cirrhosis # transaminitis # Hyperammonemia # anemia and thrombocytopenia likely due to above # Acute complicated UTI from ESBL # uncontrolled type 2 DM with HbA1c 11.6 # Hypertension # anemia of chronic disease # Severe malnutrition Discharge Disposition: Custodial Facility Discharge Instruct/Medications Diet: Consistent carbohydrate, Cardiac 2g Na,low cholest Activity: No Restrictions, As Tolerated Follow Up/Referral: PCP Medications: PER EMR Discharge Statement: "Patient was advised to return to the ER or call 911 if any headaches, dizziness, shortness of breath, chest pain, abdominal pain, bleeding, fevers, or worsening of medical condition. Patient was counseled about treatment plan, medications, possible side effects, patientverbalized understanding. All questions were answered to the best of my ability. This discharge took greater then 30 minutes in planning, reviewing documentation, counseling the patient, and discussing with other team members." ASSESSMENT ASSESSMENT Assessment # acute toxic or metabolic encephalopathy likely due to pneumonia # sepsis likely due to pneumonia # likely aspiration pneumonia # acute hypoxic respiratory failure likely due to above Date of Service: Nov 06, 2024 Billing Provider: MARTINA KAM MD Common Visit Codes: 09765-YWO/OBS DISCH DAY >30min MARYSOL VILLELA Nov 06, 2024 12:45 MARTINA KAM MD Nov 10, 2024 19:30
--- NOTE | 2024-11-06 19:09 | DVHPN2 ---
Progress Note - Dictate Date Seen: Nov 06, 2024 Medical Necessity Reason Pt with a Central, PICC or Fol: Yes The following are medically ne: Suazo Catheter Subjective No new complaints Patient is clinically improving Ammonia level is improving Persistent elevation in LFTs ESBL in Urine Had midline catheter placed vital signs Vital Sign Date Time Temp Pulse Resp B/P (MAP) Pulse Ox O2 Delivery O2 Flow Rate FiO2 11/06/24 18:59 96 18 100 11/06/24 18:51 Room Air 0.0 11/06/24 18:51 21 11/06/24 17:00 98.2 132/66 (88) 98.2 Total Intake and Output 11/05/24 11/05/24 11/06/24 15:00 23:00 07:00 Intake Total 450 ml 0 ml Output Total 350 ml 475 ml Balance 100 ml -475 ml medications Current Medications Medications Dose Ordered Sig/Vega Route Start Time Stop Time Status Last Admin Dose Admin Diagnostic Test (Pha) 1 strip ACHS 11/04/24 11:30 11/06/24 17:16 1 STRIP Dextrose 50 ml UD PRN IV 11/04/24 07:45 Sodium Chloride 10 ml Q8HR IV 11/04/24 14:00 11/06/24 14:00 10 ML Ondansetron HCl 4 mg Q4HP PRN IV 11/04/24 07:45 Morphine Sulfate 2 mg Q4HPRN PRN IV 11/04/24 07:45 11/06/24 11:39 2 MG Nitroglycerin 0.4 mg Q5MINP PRN SL 11/04/24 07:45 Morphine Sulfate 2 mg Q30M PRN IV 11/04/24 07:45 Pantoprazole Sodium 40 mg DAILY IV 11/04/24 10:00 11/06/24 11:10 40 MG Albuterol 2.5 mg Q4HPRN PRN NEB 11/04/24 07:45 11/06/24 18:54 2.5 MG Ipratropium [place] 0.5 mg Q6HWA NEB 11/04/24 12:00 11/06/24 18:54 0.5 MG Hydralazine HCl 10 mg Q6HP PRN IV 11/04/24 07:45 Insulin Human Regular ACHS SC 11/04/24 09:30 11/06/24 17:20 3 UNITS Vancomycin HCl 150 ml @ 150 mls/hr Q10H IV 11/04/24 11:00 Cancel Thiamine HCl 100 mg DAILY PO 11/06/24 10:00 11/06/24 11:10 100 MG Folic Acid 1 mg DAILY PO 11/06/24 10:00 11/06/24 11:10 1 MG Enteral Nutritional Formula 240 ml TIDWM PO 11/05/24 18:00 11/06/24 17:21 240 ML Lactulose 30 ml Q6HR PO 11/06/24 00:00 11/06/24 17:14 30 ML Ertapenem 1 gm/ Sodium Chloride 50 ml @ 100 mls/hr DAILY IV 11/06/24 10:00 11/06/24 11:31 100 MLS/HR objective Pt is lying on bed awake NAD General Appearance: Confused, Oriented X2, Cooperative, mild distress HEENT: Atraumatic, Mucous membranes dry Respiratory: decreased breath sounds right-sided Cardiovascular: Regular rate, Normal S1, Normal S2, No murmurs Abdominal: Active bowel sounds, Soft, no distention, no tenderness Extremities: No edema, Normal pulses, No tenderness/swelling Skin: No Significant rash, except past surgical scars Neuro: Normal speech, sensorimotor deficits none laboratory and microbiology Laboratory Tests 11/06/24 06:47 11/05/24 06:49 Test 11/06/24 06:47 Range/Units Serum Glucose 142 H 74-106 mg/dL Problems(with codes): (1) Dehydration (2) Elevated liver enzymes (3) Altered mental status (4) Alcoholic cirrhosis (5) Generalized weakness (6) Hepatic encephalopathy (7) Multifocal pneumonia (8) UTI (urinary tract infection) Prognosis PLAN Discharge planning is in progress Patient is going to need IV antibiotics and he is being [facility] Advance diet as tolerated Lactulose 30 mL p.o. daily Outpatient follow up with GI Services as needed to continue to monitor his liver status Dietary Evaluation Review Comments: Pt is asking for food, has an appetite to eat (the refusing food>3 days is resolved), encourage PO intake and monitor intake to meet 75% of his needs. Consider CCHO-60 diet for improved DM controll. Avoid alcohol Expected Outcomes/Goals: improved nutrition related lab values. Plan discussed with: Other (None) TREVIN PATEL MD Nov 06, 2024 19:09
[2024-11-07] VITALS (15 sets, daily range): BP systolic 122–133; BP diastolic 58–74; PULSE 78–109; RESP 16–20; TEMP 98.1–100.8; O2SAT 16–100
--- NOTE | 2024-11-07 15:53 | DVHPNRES ---
Progress Note Date Seen: Nov 07, 2024 Resident Creating Document: MARYSOL VILLELA RESIDENT Medical Necessity Reason Pt with a Central, PICC or Fol: Yes The following are medically ne: Suazo Catheter Subjective Review of Systems Theo Lora is a 59-year-old male with PMH of alcoholic liver cirrhosis, HTN, type 2 DM presented to the ED by EMS from nursing facility with the chief complaints fever, cough and altered mental status Patient seen and examined at the bedside. Patient is confused, oriented x2 and able to respond properly. currently on room air. Supportive treatment Preliminary . ESBL positive UTI narrow down the antibiotic to Invanz Held discharge due to isolation bed availability at [facility]. Discharge can be expected in next 24-48 hours. Patient reports: No new complaints, Feels better Objective vital signs Vital Sign Date Time Temp Pulse Resp B/P (MAP) Pulse Ox O2 Delivery O2 Flow Rate FiO2 11/07/24 13:00 98.1 95 20 122/58 (79) 97 98.1 11/07/24 11:59 Room Air* 0 21 Total Intake and Output 11/06/24 11/06/24 11/07/24 15:00 23:00 07:00 Intake Total 50 ml 520 ml 900 ml Output Total 825 ml 750 ml Balance 50 ml -305 ml 150 ml medications Current Medications Medications Dose Ordered Sig/Vega Route Start Time Stop Time Status Last Admin Dose Admin Diagnostic Test (Pha) 1 strip ACHS 11/04/24 11:30 11/07/24 12:47 1 STRIP Dextrose 50 ml UD PRN IV 11/04/24 07:45 Sodium Chloride 10 ml Q8HR IV 11/04/24 14:00 11/07/24 14:00 10 ML Ondansetron HCl 4 mg Q4HP PRN IV 11/04/24 07:45 Morphine Sulfate 2 mg Q4HPRN PRN IV 11/04/24 07:45 11/06/24 11:39 2 MG Nitroglycerin 0.4 mg Q5MINP PRN SL 11/04/24 07:45 Morphine Sulfate 2 mg Q30M PRN IV 11/04/24 07:45 Pantoprazole Sodium 40 mg DAILY IV 11/04/24 10:00 11/07/24 10:31 40 MG Albuterol 2.5 mg Q4HPRN PRN NEB 11/04/24 07:45 11/06/24 18:54 2.5 MG Ipratropium [place] 0.5 mg Q6HWA NEB 11/04/24 12:00 11/07/24 11:59 0.5 MG Hydralazine HCl 10 mg Q6HP PRN IV 11/04/24 07:45 Insulin Human Regular ACHS SC 11/04/24 09:30 11/07/24 06:12 4 UNITS Vancomycin HCl 150 ml @ 150 mls/hr Q10H IV 11/04/24 11:00 Cancel Thiamine HCl 100 mg DAILY PO 11/06/24 10:00 11/07/24 10:31 100 MG Folic Acid 1 mg DAILY PO 11/06/24 10:00 11/07/24 10:31 1 MG Enteral Nutritional Formula 240 ml TIDWM PO 11/05/24 18:00 11/07/24 12:00 240 ML Lactulose 30 ml Q6HR PO 11/06/24 00:00 11/07/24 11:56 30 ML Ertapenem 1 gm/ Sodium Chloride 50 ml @ 100 mls/hr DAILY IV 11/06/24 10:00 11/07/24 10:31 100 MLS/HR Examination General Appearance: Confused, Oriented X2, Cooperative, no distress HEENT: Atraumatic, Mucous membranes dry Respiratory: decreased breath sounds right-sided Cardiovascular: Regular rate, Normal S1, Normal S2, No murmurs Abdominal: Active bowel sounds, Soft, no distention, no tenderness Extremities: No edema, Normal pulses, No tenderness/swelling Skin: No Significant rash, except past surgical scars Neuro: Normal speech, sensorimotor deficits none Psych/Mental Status: Mental status NL, Mood NL [facility] laboratory and microbiology Laboratory Tests 11/06/24 06:47 11/05/24 06:49 Test 11/06/24 06:47 Range/Units Serum Glucose 142 H 74-106 mg/dL Microbiology Date/Time Source Procedure Growth Status 11/04/24 10:44 Voided Urine Urine Culture - Final Klebsiella pneumoniae - ESBL Complete 11/04/24 03:50 Blood Blood Culture - Preliminary NO GROWTH AFTER 72 HOURS OF INCUBATION. Resulted Labs and/or images reviewed: Labs reviewed by me, Image(s) reviewed by me Problem List/Assessment/Plan Problem List/Assessment/Plan # acute toxic or metabolic encephalopathy likely due to pneumonia, improving # sepsis likely due to pneumonia, improving # likely aspiration pneumonia, improved # acute hypoxic respiratory failure likely due to above, resolving - currently on room air - Head CT showed no acute intracranial abnormalities. Liver ultrasound showed heterogeneous coarse echotexture of liver. - CXR showed patchy opacities throughout the right lung. - Currently on IVF, Invanz - Ordered pancultures, ESBL positive UTI - elevated lactase, monitor lab - preliminary blood culture showed no growth # Liver cirrhosis # transaminitis # Hyperammonemia # anemia and thrombocytopenia likely due to above - monitor lab for now - currently on lactulose - Liver ultrasound showed heterogeneous coarse echotexture of liver # Acute complicated UTI which is ESBL positive - Ordered urine culures, ESBL positive - currently on Invanz # uncontrolled type 2 DM with HbA1c 11.6 - monitor lab - sliding scale # Hypertension - continue hydralazine 10 mg IV q.6h p.r.n. # anemia of chronic disease - Monitor CBC # Severe malnutrition - ordered dietary consult SCDs for now Protonix NPO for now reconciled home meds Goals of care discussed with the patient and daughter for more than 27 minutes: Full code status Case management discussed with Dr. Tolentino, patient, daughter and nurse. Held discharge due to isolation bed availability at SNF. Discharge can be expected in next 24-48 hours. Plan discussed with: Patient My Orders My Orders Orders - MARYSOL VILLELA RESIDENT Procedure Category Date Status Time * Probation Counselor CONS 11/07/24 Transmitted Consult 11:46 Dietary Evaluation Review Comments: Pt is asking for food, has an appetite to eat (the refusing food>3 days is resolved), encourage PO intake and monitor intake to meet 75% of his needs. Consider CCHO-60 diet for improved DM controll. Avoid alcohol Expected Outcomes/Goals: improved nutrition related lab values. Date of Service: Nov 07, 2024 Billing Provider: MARTINA TOLENTINO MD Common Visit Codes: [id number] INP/OBS CARE(HIGH) MARYSOL VILLELA RESIDENT Nov 07, 2024 15:53 MARTINA TOLENTINO MD Nov 10, 2024 19:15
--- NOTE | 2024-11-07 16:34 | DVHPN2 ---
Progress Note - Dictate Date Seen: Nov 07, 2024 Medical Necessity Reason Pt with a Central, PICC or Fol: Yes The following are medically ne: Suazo Catheter Subjective No new complaints Patient is clinically improving Ammonia level is improving Persistent elevation in LFTs ESBL in Urine Had midline catheter placed vital signs Vital Sign Date Time Temp Pulse Resp B/P (MAP) Pulse Ox O2 Delivery O2 Flow Rate FiO2 11/07/24 13:00 98.1 95 20 122/58 (79) 97 98.1 11/07/24 11:59 Room Air* 0 21 Total Intake and Output 11/06/24 11/06/24 11/07/24 15:00 23:00 07:00 Intake Total 50 ml 520 ml 900 ml Output Total 825 ml 750 ml Balance 50 ml -305 ml 150 ml medications Current Medications Medications Dose Ordered Sig/Vega Route Start Time Stop Time Status Last Admin Dose Admin Diagnostic Test (Pha) 1 strip ACHS 11/04/24 11:30 11/07/24 16:32 1 STRIP Dextrose 50 ml UD PRN IV 11/04/24 07:45 Sodium Chloride 10 ml Q8HR IV 11/04/24 14:00 11/07/24 14:00 10 ML Ondansetron HCl 4 mg Q4HP PRN IV 11/04/24 07:45 Morphine Sulfate 2 mg Q4HPRN PRN IV 11/04/24 07:45 11/06/24 11:39 2 MG Nitroglycerin 0.4 mg Q5MINP PRN SL 11/04/24 07:45 Morphine Sulfate 2 mg Q30M PRN IV 11/04/24 07:45 Pantoprazole Sodium 40 mg DAILY IV 11/04/24 10:00 11/07/24 10:31 40 MG Albuterol 2.5 mg Q4HPRN PRN NEB 11/04/24 07:45 11/06/24 18:54 2.5 MG Ipratropium [place] 0.5 mg Q6HWA NEB 11/04/24 12:00 11/07/24 11:59 0.5 MG Hydralazine HCl 10 mg Q6HP PRN IV 11/04/24 07:45 Insulin Human Regular ACHS SC 11/04/24 09:30 11/07/24 06:12 4 UNITS Vancomycin HCl 150 ml @ 150 mls/hr Q10H IV 11/04/24 11:00 Cancel Thiamine HCl 100 mg DAILY PO 11/06/24 10:00 11/07/24 10:31 100 MG Folic Acid 1 mg DAILY PO 11/06/24 10:00 11/07/24 10:31 1 MG Enteral Nutritional Formula 240 ml TIDWM PO 11/05/24 18:00 11/07/24 12:00 240 ML Lactulose 30 ml Q6HR PO 11/06/24 00:00 11/07/24 11:56 30 ML Ertapenem 1 gm/ Sodium Chloride 50 ml @ 100 mls/hr DAILY IV 11/06/24 10:00 11/07/24 10:31 100 MLS/HR objective Pt is lying on bed awake NAD General Appearance: Confused, Oriented X2, Cooperative, mild distress HEENT: Atraumatic, Mucous membranes dry Respiratory: decreased breath sounds right-sided Cardiovascular: Regular rate, Normal S1, Normal S2, No murmurs Abdominal: Active bowel sounds, Soft, no distention, no tenderness Extremities: No edema, Normal pulses, No tenderness/swelling Skin: No Significant rash, except past surgical scars Neuro: Normal speech, sensorimotor deficits none laboratory and microbiology Laboratory Tests 11/06/24 06:47 11/05/24 06:49 Test 11/06/24 06:47 Range/Units Serum Glucose 142 H 74-106 mg/dL Problems(with codes): (1) Dehydration (2) Elevated liver enzymes (3) Altered mental status (4) Alcoholic cirrhosis (5) Generalized weakness (6) Hepatic encephalopathy (7) UTI (urinary tract infection) Prognosis PLAN Discharge planning is in progress Patient is going to need IV antibiotics and he is being transferred to the snf when bed is available Advance diet as tolerated Lactulose 30 mL p.o. daily Outpatient follow up with GI Services as needed to continue to monitor his liver status Dietary Evaluation Review Comments: Pt is asking for food, has an appetite to eat (the refusing food>3 days is resolved), encourage PO intake and monitor intake to meet 75% of his needs. Consider CCHO-60 diet for improved DM controll. Avoid alcohol Expected Outcomes/Goals: improved nutrition related lab values. Plan discussed with: Patient TREVIN PATEL MD Nov 07, 2024 16:34
[2024-11-08] VITALS (11 sets, daily range): BP systolic 97–112; BP diastolic 59–64; PULSE 61–88; RESP 16–20; TEMP 98.2–99; O2SAT 96–100
--- NOTE | 2024-11-08 14:16 | DVHPNRES ---
Progress Note Date Seen: Nov 08, 2024 Resident Creating Document: MARYSOL VILLELA RESIDENT Medical Necessity Reason Pt with a Central, PICC or Fol: Yes The following are medically ne: Suazo Catheter Subjective Review of Systems Theo oLra is a 59-year-old male with PMH of alcoholic liver cirrhosis, HTN, type 2 DM presented to the ED by EMS from nursing facility with the chief complaints fever, cough and altered mental status Patient seen and examined at the bedside. Patient is confused, oriented x2 and able to respond properly. currently on room air. Supportive treatment Preliminary . ESBL positive UTI narrow down the antibiotic to Invanz Held discharge due to isolation bed availability at [facility]. Discharge can be expected in next 24-48 hours. Objective vital signs Vital Sign Date Time Temp Pulse Resp B/P (MAP) Pulse Ox O2 Delivery O2 Flow Rate FiO2 11/08/24 11:35 79 18 100 11/08/24 09:00 98.2 97/59 (72) 98.2 11/08/24 08:00 Room Air* 0 21 Total Intake and Output 11/07/24 11/07/24 11/08/24 15:00 23:00 07:00 Intake Total 50 ml 620 ml 240 ml Output Total 550 ml Balance 50 ml 70 ml 240 ml medications Current Medications Medications Dose Ordered Sig/Vega Route Start Time Stop Time Status Last Admin Dose Admin Diagnostic Test (Pha) 1 strip ACHS 11/04/24 11:30 11/08/24 11:30 1 STRIP Dextrose 50 ml UD PRN IV 11/04/24 07:45 Sodium Chloride 10 ml Q8HR IV 11/04/24 14:00 11/08/24 13:38 10 ML Ondansetron HCl 4 mg Q4HP PRN IV 11/04/24 07:45 Morphine Sulfate 2 mg Q4HPRN PRN IV 11/04/24 07:45 11/06/24 11:39 2 MG Nitroglycerin 0.4 mg Q5MINP PRN SL 11/04/24 07:45 Morphine Sulfate 2 mg Q30M PRN IV 11/04/24 07:45 Pantoprazole Sodium 40 mg DAILY IV 11/04/24 10:00 11/08/24 10:06 40 MG Albuterol 2.5 mg Q4HPRN PRN NEB 11/04/24 07:45 11/08/24 11:24 2.5 MG Ipratropium [place] 0.5 mg Q6HWA NEB 11/04/24 12:00 11/08/24 11:24 0.5 MG Hydralazine HCl 10 mg Q6HP PRN IV 11/04/24 07:45 Insulin Human Regular ACHS SC 11/04/24 09:30 11/08/24 12:21 4 UNITS Vancomycin HCl 150 ml @ 150 mls/hr Q10H IV 11/04/24 11:00 Cancel Thiamine HCl 100 mg DAILY PO 11/06/24 10:00 11/08/24 10:06 100 MG Folic Acid 1 mg DAILY PO 11/06/24 10:00 11/08/24 10:06 1 MG Enteral Nutritional Formula 240 ml TIDWM PO 11/05/24 18:00 11/08/24 12:18 240 ML Lactulose 30 ml Q6HR PO 11/06/24 00:00 11/08/24 00:21 30 ML Ertapenem 1 gm/ Sodium Chloride 50 ml @ 100 mls/hr DAILY IV 11/06/24 10:00 11/08/24 10:06 100 MLS/HR Examination General Appearance: Confused, Oriented X2, Cooperative, no distress HEENT: Atraumatic, Mucous membranes dry Respiratory: decreased breath sounds right-sided Cardiovascular: Regular rate, Normal S1, Normal S2, No murmurs Abdominal: Active bowel sounds, Soft, no distention, no tenderness Extremities: No edema, Normal pulses, No tenderness/swelling Skin: No Significant rash, except past surgical scars Neuro: Normal speech, sensorimotor deficits none Psych/Mental Status: Mental status NL, Mood NL Nurse was there as kimberly during examination laboratory and microbiology Laboratory Tests 11/06/24 06:47 11/05/24 06:49 Test 11/06/24 06:47 Range/Units Serum Glucose 142 H 74-106 mg/dL Microbiology Date/Time Source Procedure Growth Status 11/04/24 10:44 Voided Urine Urine Culture - Final Klebsiella pneumoniae - ESBL Complete 11/04/24 03:50 Blood Blood Culture - Preliminary NO GROWTH AFTER 72 HOURS OF INCUBATION. Resulted Labs and/or images reviewed: Labs reviewed by me, Image(s) reviewed by me Problem List/Assessment/Plan Problem List/Assessment/Plan # acute toxic or metabolic encephalopathy likely due to pneumonia, improving # sepsis likely due to pneumonia, improving # likely aspiration pneumonia, improved # acute hypoxic respiratory failure likely due to above, resolving - currently on room air - Head CT showed no acute intracranial abnormalities. Liver ultrasound showed heterogeneous coarse echotexture of liver. - CXR showed patchy opacities throughout the right lung. - Currently on IVF, Invanz - Ordered pancultures, ESBL positive UTI - elevated lactase, monitor lab - preliminary blood culture showed no growth # Liver cirrhosis # transaminitis # Hyperammonemia # anemia and thrombocytopenia likely due to above - monitor lab for now - currently on lactulose - Liver ultrasound showed heterogeneous coarse echotexture of liver # Acute complicated UTI which is ESBL positive - Ordered urine culures, ESBL positive - currently on Invanz # uncontrolled type 2 DM with HbA1c 11.6 - monitor lab - sliding scale # Hypertension - continue hydralazine 10 mg IV q.6h p.r.n. # anemia of chronic disease - Monitor CBC # Severe malnutrition - ordered dietary consult SCDs for now Protonix NPO for now reconciled home meds Goals of care discussed with the patient and daughter for more than 27 minutes: Full code status Case management discussed with Dr. Tolentino, patient, daughter and nurse. Held discharge due to isolation bed availability at SNF. Discharge can be expected in next 24-48 hours. Plan discussed with: Patient Dietary Evaluation Review Comments: Pt is asking for food, has an appetite to eat (the refusing food>3 days is resolved), encourage PO intake and monitor intake to meet 75% of his needs. Consider CCHO-60 diet for improved DM controll. Avoid alcohol Expected Outcomes/Goals: improved nutrition related lab values. Date of Service: Nov 08, 2024 Billing Provider: MARTINA TOLENTINO MD Common Visit Codes: [id number] INP/OBS CARE(HIGH) MARYSOL VILLELA RESIDENT Nov 08, 2024 14:16 MARTINA TOLENTINO MD Nov 10, 2024 19:28
--- NOTE | 2024-11-08 22:27 | DVHPN2 ---
Progress Note - Dictate Date Seen: Nov 08, 2024 (Late entryPatient seen at 10:00 a.m.) Medical Necessity Reason Pt with a Central, PICC or Fol: Yes The following are medically ne: Suazo Catheter Subjective No new complaints Patient is clinically improving Ammonia level is improving Persistent elevation in LFTs ESBL in Urine Had midline catheter placed vital signs Vital Sign Date Time Temp Pulse Resp B/P (MAP) Pulse Ox O2 Delivery O2 Flow Rate FiO2 11/08/24 19:44 85 16 100 11/08/24 19:36 Room Air* 0 21 11/08/24 17:00 98.6 108/60 (76) 98.6 Total Intake and Output 11/07/24 11/07/24 11/08/24 15:00 23:00 07:00 Intake Total 50 ml 620 ml 240 ml Output Total 550 ml Balance 50 ml 70 ml 240 ml medications Current Medications Medications Dose Ordered Sig/Vega Route Start Time Stop Time Status Last Admin Dose Admin Diagnostic Test (Pha) 1 strip ACHS 11/04/24 11:30 11/08/24 21:32 1 STRIP Dextrose 50 ml UD PRN IV 11/04/24 07:45 Sodium Chloride 10 ml Q8HR IV 11/04/24 14:00 11/08/24 21:32 10 ML Ondansetron HCl 4 mg Q4HP PRN IV 11/04/24 07:45 Morphine Sulfate 2 mg Q4HPRN PRN IV 11/04/24 07:45 11/06/24 11:39 2 MG Nitroglycerin 0.4 mg Q5MINP PRN SL 11/04/24 07:45 Morphine Sulfate 2 mg Q30M PRN IV 11/04/24 07:45 Pantoprazole Sodium 40 mg DAILY IV 11/04/24 10:00 11/08/24 10:06 40 MG Albuterol 2.5 mg Q4HPRN PRN NEB 11/04/24 07:45 11/08/24 19:36 2.5 MG Ipratropium [place] 0.5 mg Q6HWA NEB 11/04/24 12:00 11/08/24 19:36 0.5 MG Hydralazine HCl 10 mg Q6HP PRN IV 11/04/24 07:45 Insulin Human Regular ACHS SC 11/04/24 09:30 11/08/24 21:28 4 UNITS Vancomycin HCl 150 ml @ 150 mls/hr Q10H IV 11/04/24 11:00 Cancel Thiamine HCl 100 mg DAILY PO 11/06/24 10:00 11/08/24 10:06 100 MG Folic Acid 1 mg DAILY PO 11/06/24 10:00 11/08/24 10:06 1 MG Enteral Nutritional Formula 240 ml TIDWM PO 11/05/24 18:00 11/08/24 18:00 240 ML Lactulose 30 ml Q6HR PO 11/06/24 00:00 11/08/24 19:02 30 ML Ertapenem 1 gm/ Sodium Chloride 50 ml @ 100 mls/hr DAILY IV 11/06/24 10:00 11/08/24 10:06 100 MLS/HR objective Pt is lying on bed awake NAD General Appearance: Confused, Oriented X2, Cooperative, mild distress HEENT: Atraumatic, Mucous membranes dry Respiratory: decreased breath sounds right-sided Cardiovascular: Regular rate, Normal S1, Normal S2, No murmurs Abdominal: Active bowel sounds, Soft, no distention, no tenderness Extremities: No edema, Normal pulses, No tenderness/swelling Skin: No Significant rash, except past surgical scars Neuro: Normal speech, sensorimotor deficits none laboratory and microbiology Laboratory Tests 11/06/24 06:47 11/05/24 06:49 Test 11/06/24 06:47 Range/Units Serum Glucose 142 H 74-106 mg/dL Problems(with codes): (1) Dehydration (2) Elevated liver enzymes (3) Altered mental status (4) Alcoholic cirrhosis (5) Generalized weakness (6) Hepatic encephalopathy (7) Metabolic encephalopathy (8) Chronic alcoholism Prognosis PLAN MELD score is 12 points predictive of low mortality Discharge planning is in progress Patient is going to need IV antibiotics and he is being transferred to the snf when bed is available Advance diet as tolerated Lactulose 30 mL p.o. daily Discontinue alcohol, Outpatient follow up with GI Services as needed to continue to monitor his liver status Dietary Evaluation Review Comments: Pt is asking for food, has an appetite to eat (the refusing food>3 days is resolved), encourage PO intake and monitor intake to meet 75% of his needs. Consider CCHO-60 diet for improved DM controll. Avoid alcohol Expected Outcomes/Goals: improved nutrition related lab values. Plan discussed with: Patient TREVIN PATEL MD Nov 08, 2024 22:27
[2024-11-09] VITALS (13 sets, daily range): BP systolic 101–140; BP diastolic 58–71; PULSE 72–111; RESP 16–20; TEMP 97.6–99; O2SAT 96–100
[2024-11-09 07:06] LABS: Hematocrit 26.4 % (41.0-53.0); Hemoglobin 9.3 g/dL (13.5-17.5); Mean Corpuscular Hemoglobin 33.7 pg (28.0-32.0); Mean Corpuscular Hgb Conc. 35.2 g/dL (32.0-36.0); Mean Corpuscular Volume 95.9 fL (80.0-100.0); Platelet Count (auto) 114 10^3/uL (140-450); Red Blood Cells 2.75 10^6/uL (4.5-5.90); Red Cell Distribution Width 16.5 % (11.8-14.3); White Blood Cell 5.3 10^3/uL (4.4-10.8)
[2024-11-09 07:20] LABS: Basophils % (manual) 0 (0.0-2.0); Blast Cells 0; Metamyelocytes % 0; Myelocytes % 0; Promyelocytes % 0; Reactive Lymphocytes 0
[2024-11-09 07:26] LABS: Anion Gap 6 (5-15); BUN/Creatinine Ratio 19.2 (10.0-20.0); Blood Urea Nitrogen 10 mg/dL (9-23); Carbon Dioxide 27 mmol/L (20-31); Chloride 104 mmol/L (98-107); Potassium 4.6 mmol/L (3.5-5.1); Sodium 137 mmol/L (136-145)
[2024-11-09 07:34] LABS: Alanine Aminotransferase 112 U/L (7-40); Albumin 2.3 g/dL (3.2-4.8); Alkaline Phosphatase 403 U/L (46-116); Aspartate Aminotransferase 113 U/L (13-40); Bilirubin, Total 1.7 mg/dL (0.2-1.0); Calcium 8.6 mg/dL (8.7-10.4); Glucose 180 mg/dL (74-106); Total Protein 4.9 g/dL (5.7-8.2)
[2024-11-09 08:14] LABS: Band Neutrophils % (manual) 1; Eosinophils % (manual) 2 (0-7); Lymphocytes % (manual) 25 (10.0-50.0); Monocytes % (manual) 17 (0-12); Platelet Estimate Decreased
--- NOTE | 2024-11-09 19:28 | DVHPNRES ---
Progress Note Date Seen: Nov 09, 2024 Resident Creating Document: BERNARDINO ESPINAL RESIDENT Medical Necessity Reason Pt with a Central, PICC or Fol: Yes The following are medically ne: Suazo Catheter Subjective Review of Systems Theo Lora is a 59-year-old male patient who presents to the ED via EMS from nursing facility with the chief complaints fever, cough and altered mental status since yesterday. Patient is poor historian, spoke with his daughter, reported patient has been having fever, shortness of breath, cough with altered mental status. Her daughter reported he will get confused whenever his ammonia is high and he is being sick for last 4 months. Patient recently discharged from this facility after treating for hepatic encephalopathy. Per her daughter this is not patient's baseline. Denies chest pain, diarrhea, nausea, vomiting, abdominal pain and other acute associated symptoms. Past medical history: Alcoholic Liver cirrhosis, HTN, type 2 DM, chronic cognitive impairment Surgical history: Denies Family history: Reviewed, noncontributory Social history: Lives in nursing facility. 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 Denies current tobacco, alcohol and other drug abuse Allergies: No known allergies Patient seen and examined at the bedside. Currently has no new complaints. Patient currently only oriented in person and in event (not time nor space) Objective vital signs Vital Sign Date Time Temp Pulse Resp B/P (MAP) Pulse Ox O2 Delivery O2 Flow Rate FiO2 11/09/24 19:00 97 Room Air 0.0 11/09/24 19:00 98 18 11/09/24 19:00 21 11/09/24 17:00 98.2 115/58 (77) 98.2 Total Intake and Output 11/08/24 11/08/24 11/09/24 15:00 23:00 07:00 Intake Total 50 ml 400 ml 300 ml Output Total 450 ml 1050 ml Balance 50 ml -50 ml -750 ml medications Current Medications Medications Dose Ordered Sig/Vega Route Start Time Stop Time Status Last Admin Dose Admin Diagnostic Test (Pha) 1 strip ACHS 11/04/24 11:30 11/09/24 16:59 1 STRIP Dextrose 50 ml UD PRN IV 11/04/24 07:45 Sodium Chloride 10 ml Q8HR IV 11/04/24 14:00 11/09/24 11:25 10 ML Ondansetron HCl 4 mg Q4HP PRN IV 11/04/24 07:45 Morphine Sulfate 2 mg Q4HPRN PRN IV 11/04/24 07:45 11/06/24 11:39 2 MG Nitroglycerin 0.4 mg Q5MINP PRN SL 11/04/24 07:45 Morphine Sulfate 2 mg Q30M PRN IV 11/04/24 07:45 Pantoprazole Sodium 40 mg DAILY IV 11/04/24 10:00 11/09/24 10:36 40 MG Albuterol 2.5 mg Q4HPRN PRN NEB 11/04/24 07:45 11/09/24 19:00 2.5 MG Ipratropium [place] 0.5 mg Q6HWA NEB 11/04/24 12:00 11/09/24 19:00 0.5 MG Hydralazine HCl 10 mg Q6HP PRN IV 11/04/24 07:45 Insulin Human Regular ACHS SC 11/04/24 09:30 11/09/24 16:59 6 UNITS Vancomycin HCl 150 ml @ 150 mls/hr Q10H IV 11/04/24 11:00 Cancel Thiamine HCl 100 mg DAILY PO 11/06/24 10:00 11/09/24 10:36 100 MG Folic Acid 1 mg DAILY PO 11/06/24 10:00 11/09/24 10:36 1 MG Enteral Nutritional Formula 240 ml TIDWM PO 11/05/24 18:00 11/09/24 18:20 240 ML Lactulose 30 ml Q6HR PO 11/06/24 00:00 11/09/24 16:51 30 ML Ertapenem 1 gm/ Sodium Chloride 50 ml @ 100 mls/hr DAILY IV 11/06/24 10:00 11/09/24 10:35 100 MLS/HR Examination Patient lying in bed, in no acute distress General: Kim, afebrile, mucosae are moist Cardiovascular: Normal S1 and S2. No murmurs, gallops or rubs Respiratory: Normal ventilation mechanics. Clear lung sounds on auscultation Abdomen: Soft, nontender, no organomegaly, normal bowel sounds MSK/skin: Mobilizes 4 limbs. Skin is dry and warm Neurological: Oriented in in person and event (not time nor space). Hypertonicity on upper limbs, presents chronic neck flexure. No other motor no sensitive deficits. Pupils are isocoric and reactive laboratory and microbiology Laboratory Tests 11/09/24 06:17 Test 11/09/24 06:17 Range/Units Serum Glucose 180 H 74-106 mg/dL Microbiology Date/Time Source Procedure Growth Status 11/04/24 10:44 Voided Urine Urine Culture - Final Klebsiella pneumoniae - ESBL Complete 11/04/24 03:50 Blood Blood Culture - Final NO GROWTH AFTER 5 DAYS OF INCUBATION. Complete Problem List/Assessment/Plan Problem List/Assessment/Plan Acute metabolic encephalopathy likely due to sepsis from UTI vs pneumonia - improving Head CT showed no acute intracranial abnormalities. Patient currently on his baseline mentation Sepsis likely due to UTI vs pneumonia - improving Currently on adjusted IV antibiotics (ertapenem, previously on vancomycin, cefepime and meropenem) Ordered pancultures, Klebsiella pneumoniae ESBL positive UTI Acute complicated UTI which is ESBL positive Urine culture positive for Klebsiella pneumoniae ESBL Currently under adjusted IV antibiotic (ertapenem, previously on vancomycin, cefepime and meropenem) Likely aspiration pneumonia, improved CXR showed patchy opacities throughout the right lung. Acute hypoxic respiratory failure likely due to above, resolving Required oxygen therapy on admission. Currently on room air Alcoholic Liver cirrhosis Patient currently is abstinent from alcohol Meld score 12 (low mortality) GI specialist on board. Liver ultrasound showed heterogeneous coarse echotexture of liver Transaminitis Due to liver cirrhosis Hyperammonemia Continue with lactulose 30 mL p.o. daily Anemia and thrombocytopenia likely due to above Monitor Uncontrolled type 2 DM with HbA1c 11.6 On insulin sliding scale Continue with Lantus 15 U SC daily Hypertension Hydralazine 10 mg IV q.6h p.r.n. Patient is hypertension controlled with diet Severe malnutrition Ordered dietary consult Goals of care discussed with daughter (next of kin) for over 18 minutes: Full code status Case management discussed with Dr. Tolentino, patient, daughter and nurse: Patient condition to be discharged to SNF, pending bed availability due to requirement of isolation bed because of ESBL UTI. Plan discussed with: Patient, Other (Nurses) Dietary Evaluation Review Comments: Pt is asking for food, has an appetite to eat (the refusing food>3 days is resolved), encourage PO intake and monitor intake to meet 75% of his needs. Consider CCHO-60 diet for improved DM controll. Avoid alcohol Expected Outcomes/Goals: improved nutrition related lab values. Date of Service: Nov 09, 2024 Billing Provider: MARTINA TOLENTINO MD Common Visit Codes: [id number] INP/OBS CARE(HIGH) BERNARDINO ESPINAL RESIDENT Nov 09, 2024 19:28 MARTINA TOLENTINO MD Nov 10, 2024 19:28
--- NOTE | 2024-11-09 22:20 | DVHPN2 ---
Progress Note - Dictate Date Seen: Nov 09, 2024 Medical Necessity Reason Pt with a Central, PICC or Fol: Yes The following are medically ne: Suazo Catheter Subjective No new complaints Patient is clinically improving Ammonia level is improving Persistent elevation in LFTs ESBL in Urine Had midline catheter placed on IV antibiotics Patient underwent wound care for his sacral area His respiratory status is improved he is refusing albuterol vital signs Vital Sign Date Time Temp Pulse Resp B/P (MAP) Pulse Ox O2 Delivery O2 Flow Rate FiO2 11/09/24 21:00 98.9 111 19 140/64 (89) 98 98.9 11/09/24 19:30 Room Air* 0 21 Total Intake and Output 11/08/24 11/08/24 11/09/24 15:00 23:00 07:00 Intake Total 50 ml 400 ml 300 ml Output Total 450 ml 1050 ml Balance 50 ml -50 ml -750 ml medications Current Medications Medications Dose Ordered Sig/Vega Route Start Time Stop Time Status Last Admin Dose Admin Diagnostic Test (Pha) 1 strip ACHS 11/04/24 11:30 11/09/24 21:22 1 STRIP Dextrose 50 ml UD PRN IV 11/04/24 07:45 Sodium Chloride 10 ml Q8HR IV 11/04/24 14:00 11/09/24 21:25 10 ML Ondansetron HCl 4 mg Q4HP PRN IV 11/04/24 07:45 Morphine Sulfate 2 mg Q4HPRN PRN IV 11/04/24 07:45 11/06/24 11:39 2 MG Nitroglycerin 0.4 mg Q5MINP PRN SL 11/04/24 07:45 Morphine Sulfate 2 mg Q30M PRN IV 11/04/24 07:45 Pantoprazole Sodium 40 mg DAILY IV 11/04/24 10:00 11/09/24 10:36 40 MG Albuterol 2.5 mg Q4HPRN PRN NEB 11/04/24 07:45 11/09/24 19:00 2.5 MG Ipratropium [place] 0.5 mg Q6HWA NEB 11/04/24 12:00 11/09/24 19:00 0.5 MG Hydralazine HCl 10 mg Q6HP PRN IV 11/04/24 07:45 Insulin Human Regular ACHS SC 11/04/24 09:30 11/09/24 21:24 6 UNITS Vancomycin HCl 150 ml @ 150 mls/hr Q10H IV 11/04/24 11:00 Cancel Thiamine HCl 100 mg DAILY PO 11/06/24 10:00 11/09/24 10:36 100 MG Folic Acid 1 mg DAILY PO 11/06/24 10:00 11/09/24 10:36 1 MG Enteral Nutritional Formula 240 ml TIDWM PO 11/05/24 18:00 11/09/24 18:20 240 ML Lactulose 30 ml Q6HR PO 11/06/24 00:00 11/09/24 16:51 30 ML Ertapenem 1 gm/ Sodium Chloride 50 ml @ 100 mls/hr DAILY IV 11/06/24 10:00 11/09/24 10:35 100 MLS/HR Insulin Glargine 15 units DAILY@1000 SC 11/10/24 10:00 objective Pt is lying on bed awake NAD General Appearance: Confused, Oriented X2, Cooperative, mild distress HEENT: Atraumatic, Mucous membranes dry Respiratory: decreased breath sounds right-sided Cardiovascular: Regular rate, Normal S1, Normal S2, No murmurs Abdominal: Active bowel sounds, Soft, no distention, no tenderness Extremities: No edema, Normal pulses, No tenderness/swelling Skin: No Significant rash, except past surgical scars Neuro: Normal speech, sensorimotor deficits none laboratory and microbiology Laboratory Tests 11/09/24 06:17 Test 11/09/24 06:17 Range/Units Serum Glucose 180 H 74-106 mg/dL Problems(with codes): (1) Chronic alcoholism (2) Dehydration (3) Elevated liver enzymes (4) Altered mental status (5) Alcoholic cirrhosis (6) Generalized weakness (7) Hepatic encephalopathy (8) UTI (urinary tract infection) Prognosis PLAN MELD score is 12 points predictive of low mortality Discharge planning is in progress Patient is going to need IV antibiotics and he is being transferred to the snf when bed is available Advance diet as tolerated Lactulose 30 mL p.o. daily Discontinue alcohol, Outpatient follow up with GI Services as needed to continue to monitor his liver status Dietary Evaluation Review Comments: Pt is asking for food, has an appetite to eat (the refusing food>3 days is resolved), encourage PO intake and monitor intake to meet 75% of his needs. Consider CCHO-60 diet for improved DM controll. Avoid alcohol Expected Outcomes/Goals: improved nutrition related lab values. Plan discussed with: Patient, Other TREVIN PATEL MD Nov 09, 2024 22:20
[2024-11-10] VITALS (11 sets, daily range): BP systolic 105–140; BP diastolic 59–74; PULSE 83–113; RESP 16–20; TEMP 97.9–98.6; O2SAT 97–100
[2024-11-10 07:40] LABS: Basophils # (auto) 0 10 ^3/uL (0-0.2); Basophils % (auto) 0.7 % (0.0-2.0); Eosinophils # (auto) 0.2 10 ^3/uL (0-0.8); Eosinophils % (auto) 4.7 % (0.0-7.0); Hematocrit 26.4 % (41.0-53.0); Hemoglobin 9.3 g/dL (13.5-17.5); Lymphocytes # (auto) 1.3 10 ^3/uL (0.4-5.4); Mean Corpuscular Hemoglobin 33.8 pg (28.0-32.0); Mean Corpuscular Hgb Conc. 35.1 g/dL (32.0-36.0); Mean Corpuscular Volume 96.1 fL (80.0-100.0); Monocytes # (auto) 0.6 10 ^3/uL (0-1.3); Monocytes % (auto) 13.7 % (0.0-12.0); Neutrophils # (auto) 2.5 10 ^3/uL (1.6-8.6); Neutrophils % (auto) 52.9 % (37.0-80.0); Nucleated Red Blood Cells % 0.1 %; Platelet Count (auto) 131 10^3/uL (140-450); Red Blood Cells 2.74 10^6/uL (4.5-5.90); Red Cell Distribution Width 16.6 % (11.8-14.3); White Blood Cell 4.6 10^3/uL (4.4-10.8)
[2024-11-10 07:46] LABS: INR 1.22 (0.9-1.15); Partial Thromboplastin Time 34.1 SEC (24.5-34.5); Prothrombin Time 12.7 sec (9.3-11.8)
[2024-11-10 07:48] LABS: Anion Gap 5 (5-15); BUN/Creatinine Ratio 15.6 (10.0-20.0); Blood Urea Nitrogen 10 mg/dL (9-23); Carbon Dioxide 27 mmol/L (20-31); Chloride 105 mmol/L (98-107); Magnesium 1.8 mg/dL (1.6-2.6); Potassium 4.8 mmol/L (3.5-5.1); Sodium 137 mmol/L (136-145)
[2024-11-10 07:49] LABS: Phosphorus 2.5 mg/dL (2.4-5.1)
[2024-11-10 07:50] LABS: Bilirubin, Total 1.1 mg/dL (0.2-1.0)
[2024-11-10 08:12] LABS: Alanine Aminotransferase 120 U/L (7-40); Albumin 2.4 g/dL (3.2-4.8); Alkaline Phosphatase 497 U/L (46-116); Aspartate Aminotransferase 117 U/L (13-40); Calcium 8.6 mg/dL (8.7-10.4); Glucose 307 mg/dL (74-106); Total Protein 5.1 g/dL (5.7-8.2)
--- NOTE | 2024-11-10 08:49 | DVHPNRES ---
Progress Note Date Seen: Nov 10, 2024 Resident Creating Document: CLARY SALGADO RESIDENT Medical Necessity Reason Pt with a Central, PICC or Fol: Yes The following are medically ne: Suazo Catheter Subjective Review of Systems Theo Lora is a 59-year-old male patient who presents to the ED via EMS from nursing facility with the chief complaints fever, cough and altered mental status . Patient is poor historian, spoke with his daughter, reported patient has been having fever, shortness of breath, cough with altered mental status. Her daughter reported he will get confused whenever his ammonia is high and he is being sick for last 4 months. Patient recently discharged from this facility after treating for hepatic encephalopathy. Per her daughter this is not patient's baseline. Denies chest pain, diarrhea, nausea, vomiting, abdominal pain and other acute associated symptoms. Past medical history: Alcoholic Liver cirrhosis, HTN, type 2 DM, chronic cognitive impairment Surgical history: Denies Family history: Reviewed, noncontributory Social history: Lives in nursing facility. 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 Denies current tobacco, alcohol and other drug abuse Allergies: No known allergies Patient seen and examined at the bedside. Patient currently not oriented in person , time and place. ammonia levels: 22 Review of systems unable to obtain due to patient altered level of consciousness Objective vital signs Vital Sign Date Time Temp Pulse Resp B/P (MAP) Pulse Ox O2 Delivery O2 Flow Rate FiO2 11/10/24 06:59 100 Room Air* 0 21 11/10/24 05:00 98.5 111 18 128/68 (88) 98.5 Total Intake and Output 11/09/24 11/09/24 11/10/24 15:00 23:00 07:00 Intake Total 50 ml 250 ml Output Total 850 ml Balance 50 ml -600 ml medications Current Medications Medications Dose Ordered Sig/Vega Route Start Time Stop Time Status Last Admin Dose Admin Diagnostic Test (Pha) 1 strip ACHS 11/04/24 11:30 11/10/24 06:07 1 STRIP Dextrose 50 ml UD PRN IV 11/04/24 07:45 Sodium Chloride 10 ml Q8HR IV 11/04/24 14:00 11/10/24 06:07 10 ML Ondansetron HCl 4 mg Q4HP PRN IV 11/04/24 07:45 Morphine Sulfate 2 mg Q4HPRN PRN IV 11/04/24 07:45 11/06/24 11:39 2 MG Nitroglycerin 0.4 mg Q5MINP PRN SL 11/04/24 07:45 Morphine Sulfate 2 mg Q30M PRN IV 11/04/24 07:45 Pantoprazole Sodium 40 mg DAILY IV 11/04/24 10:00 11/09/24 10:36 40 MG Albuterol 2.5 mg Q4HPRN PRN NEB 11/04/24 07:45 11/09/24 19:00 2.5 MG Ipratropium [place] 0.5 mg Q6HWA NEB 11/04/24 12:00 11/09/24 19:00 0.5 MG Hydralazine HCl 10 mg Q6HP PRN IV 11/04/24 07:45 Insulin Human Regular ACHS SC 11/04/24 09:30 11/10/24 06:10 6 UNITS Vancomycin HCl 150 ml @ 150 mls/hr Q10H IV 11/04/24 11:00 Cancel Thiamine HCl 100 mg DAILY PO 11/06/24 10:00 11/09/24 10:36 100 MG Folic Acid 1 mg DAILY PO 11/06/24 10:00 11/09/24 10:36 1 MG Enteral Nutritional Formula 240 ml TIDWM PO 11/05/24 18:00 11/09/24 18:20 240 ML Lactulose 30 ml Q6HR PO 11/06/24 00:00 11/09/24 23:13 30 ML Ertapenem 1 gm/ Sodium Chloride 50 ml @ 100 mls/hr DAILY IV 11/06/24 10:00 11/09/24 10:35 100 MLS/HR Insulin Glargine 15 units DAILY@1000 SC 11/10/24 10:00 Examination Examination General Appearance: Disoriented. Moderate acute distress . Respiratory: Clear to auscultation, Normal air movement Cardiovascular: Regular rate, Normal S1, Normal S2 Abdominal: Normal bowel sounds Extremities: No cyanosis, No edema, Normal pulses, No tenderness/swelling Skin: No rashes, No breakdown Neuro: Normal gait, slurred speech, Strength at 5/5 X4 ext, Normal tone laboratory and microbiology Laboratory Tests 11/10/24 06:46 Test 11/10/24 06:46 Range/Units Serum Glucose 307 #H 74-106 mg/dL Microbiology Date/Time Source Procedure Growth Status 11/04/24 10:44 Voided Urine Urine Culture - Final Klebsiella pneumoniae - ESBL Complete 11/04/24 03:50 Blood Blood Culture - Final NO GROWTH AFTER 5 DAYS OF INCUBATION. Complete Problem List/Assessment/Plan Problem List/Assessment/Plan Acute metabolic encephalopathy likely due to sepsis from UTI vs pneumonia - improving Head CT showed no acute intracranial abnormalities. Patient currently on his baseline mentation Repeat Ammonia levels Sepsis likely due to UTI vs pneumonia - improving Currently on adjusted IV antibiotics (ertapenem, previously on vancomycin, cefepime and meropenem) Ordered pancultures, Klebsiella pneumoniae ESBL positive UTI Acute complicated UTI which is ESBL positive Urine culture positive for Klebsiella pneumoniae ESBL Currently under adjusted IV antibiotic (ertapenem, previously on vancomycin, cefepime and meropenem) Likely aspiration pneumonia, improved CXR showed patchy opacities throughout the right lung. Acute hypoxic respiratory failure likely due to above, resolving Required oxygen therapy on admission. Currently on room air Alcoholic Liver cirrhosis Patient currently is abstinent from alcohol Meld score 12 (low mortality) GI specialist on board. Liver ultrasound showed heterogeneous coarse echotexture of liver Transaminitis Due to liver cirrhosis Hyperammonemia Continue with lactulose 30 mL p.o. daily Anemia and thrombocytopenia likely due to above Monitor Uncontrolled type 2 DM with HbA1c 11.6 On insulin sliding scale Continue with Lantus 15 U SC daily Hypertension Hydralazine 10 mg IV q.6h p.r.n. Patient is hypertension controlled with diet Severe malnutrition Ordered dietary consult Goals of care discussed with daughter (next of kin) for over 18 minutes: Full code status Case management discussed with Dr. Tolentino, patient, daughter and nurse: Patient condition to be discharged to SNF, pending bed availability due to requirement of isolation bed because of ESBL UTI. Repeat ammonia levels Plan discussed with: Patient Dietary Evaluation Review Comments: Pt is asking for food, has an appetite to eat (the refusing food>3 days is resolved), encourage PO intake and monitor intake to meet 75% of his needs. Consider CCHO-60 diet for improved DM controll. Avoid alcohol Expected Outcomes/Goals: improved nutrition related lab values. Date of Service: Nov 10, 2024 Billing Provider: MARTINA TOLENTINO MD Common Visit Codes: [id number] INP/OBS CARE(HIGH) CLARY SALGADO RESIDENT Nov 10, 2024 08:49 MARTINA TOLENTINO MD Nov 10, 2024 19:29
[2024-11-10] MEDS: INSULIN LANTUS (GLARGINE) 1 /0.01ml (100units/ml) SC SCH (10:00)
[2024-11-10] MEDS: LACTULOSE 10g/15ml SOLN 473ML PR ONE (13:11)
--- NOTE | 2024-11-10 19:26 | DVH ---
EXAM: CT HEAD WITHOUT CONTRAST HISTORY: rule out stroke COMPARISON: CT HEAD WITHOUT CONTRAST on DOS: 11/04/24, CT HEAD WITHOUT CONTRAST on DOS: 10/28/24 TECHNIQUE: Axial images were obtained and reformatted in coronal and sagittal planes. All CT scans at this medical facility are performed using dose modulation techniques as appropriate t o a performed exam including the following: Automated exposure control was utilized; adjustment of th e MA and/or KV according to patient size; and use of iterative reconstruction technique. CT Dose: CTDI volume is 51.03 mGy. Dose-length product is 818.2 mGy*cm FINDINGS: Supratentorial Region: No evidence for large acute territorial ischemia. No intracranial hemorrhage is noted. Posterior Fossa: No acute abnormality. Brainstem: Unremarkable. Sellar/Suprasellar Region: Unremarkable. Ventricles, Cisterns, Sulci: Age-appropriate. Orbits: Unremarkable. Paranasal Sinuses: Mild bilateral maxillary sinus mucosal thickening reflecting chronic sinusitis. Mastoid Air Cells: Unremarkable. Vasculature: Unremarkable. Bones/Soft Tissues: No acute abnormality. Other: None. IMPRESSION: 1. No acute intracranial process.
[2024-11-11] VITALS (15 sets, daily range): BP systolic 122–139; BP diastolic 59–74; PULSE 88–102; RESP 16–19; TEMP 97.5–98.9; O2SAT 96–100
[2024-11-11 07:04] LABS: Basophils # (auto) 0 10 ^3/uL (0-0.2); Basophils % (auto) 0.6 % (0.0-2.0); Eosinophils # (auto) 0.3 10 ^3/uL (0-0.8); Eosinophils % (auto) 4.1 % (0.0-7.0); Hematocrit 29.1 % (41.0-53.0); Hemoglobin 10.1 g/dL (13.5-17.5); Lymphocytes # (auto) 1.9 10 ^3/uL (0.4-5.4); Lymphocytes % (auto) 28.5 % (10.0-50.0); Mean Corpuscular Hemoglobin 33.7 pg (28.0-32.0); Mean Corpuscular Hgb Conc. 34.8 g/dL (32.0-36.0); Mean Corpuscular Volume 96.8 fL (80.0-100.0); Monocytes # (auto) 0.7 10 ^3/uL (0-1.3); Monocytes % (auto) 10.5 % (0.0-12.0); Neutrophils # (auto) 3.7 10 ^3/uL (1.6-8.6); Neutrophils % (auto) 56.3 % (37.0-80.0); Nucleated Red Blood Cells % 0.3 %; Platelet Count (auto) 150 10^3/uL (140-450); Red Blood Cells 3.01 10^6/uL (4.5-5.90); White Blood Cell 6.6 10^3/uL (4.4-10.8)
[2024-11-11 07:12] LABS: Potassium 4.5 mmol/L (3.5-5.1); Sodium 140 mmol/L (136-145)
[2024-11-11 07:13] LABS: Anion Gap 7 (5-15); Calcium 9.2 mg/dL (8.7-10.4); Carbon Dioxide 25 mmol/L (20-31)
[2024-11-11 07:15] LABS: Chloride 108 mmol/L (98-107)
[2024-11-11 07:23] LABS: Blood Urea Nitrogen 8 mg/dL (9-23); Glucose 125 mg/dL (74-106)
--- NOTE | 2024-11-11 07:46 | DVHPNRES ---
Progress Note Date Seen: Nov 11, 2024 Resident Creating Document: CLARY SALGADO RESIDENT Medical Necessity Reason Pt with a Central, PICC or Fol: Yes The following are medically ne: Suazo Catheter Subjective Review of Systems rowan Lora is a 59-year-old male patient who presents to the ED via EMS from nursing facility with the chief complaints fever, cough and altered mental status . Patient is poor historian, spoke with his daughter, reported patient has been having fever, shortness of breath, cough with altered mental status. Her daughter reported he will get confused whenever his ammonia is high and he is being sick for last 4 months. Patient recently discharged from this facility after treating for hepatic encephalopathy. Per her daughter this is not patient's baseline. Denies chest pain, diarrhea, nausea, vomiting, abdominal pain and other acute associated symptoms. Past medical history: Alcoholic Liver cirrhosis, HTN, type 2 DM, chronic cognitive impairment Surgical history: Denies Family history: Reviewed, noncontributory Social history: Lives in nursing facility. 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 Denies current tobacco, alcohol and other drug abuse Allergies: No known allergies Patient seen and examined at the bedside. Patient is alert and oriented x3. He denies any acute complaint at this time. At the bedside the patient reports no abdominal pain or musculoskeletal pain, which he had mentioned experiencing last night as generalized mild discomfort. He notes states he is feeling well. The patient was initially prepared for discharge to SNF yesterday, however, discharge was delayed due to his clinical status . Today, we will continue to monitor his ammonia levels, which have improved from 150-83. The patient will remain on lactulose therapy as part his management plan. Review of systems Constitutional: No: Fever, Chills, Sweats. Eyes: No: Pain, Vision change, Conjunctivae inflammation, Eyelid inflammation, Other, Redness ENT: No: Ear pain, Ear discharge, Nose pain, Nose discharge, Nose congestion, Mouth pain, Mouth swelling, Throat pain, Throat swelling, Other Respiratory: No Wheezing, Hemoptysis, Pleuritic Pain, Sputum, Wheezing, Other Cardiovascular: No: Chest Pain, Palpitations, Orthopnea, Paroxysmal Noc. Dyspnea, Edema, Lt Headedness, Other Gastrointestinal: No: Nausea, Vomiting, Abdominal Pain, Diarrhea, Constipation, Melena, Hematochezia, Other Musculoskeletal: No: other, neck pain, shoulder pain, arm pain, back pain, hand pain, leg pain, foot pain Neurological:; use: Mild confusion, change in speech No: Incoordination,Seizures Patient reports: Feels better Changes from previous H/P or p: Changes Objective vital signs Vital Sign Date Time Temp Pulse Resp B/P (MAP) Pulse Ox O2 Delivery O2 Flow Rate FiO2 11/11/24 06:24 92 16 100 11/11/24 06:20 Room Air 0.0 11/11/24 06:20 21 11/11/24 02:06 128/64 11/11/24 01:00 98.1 98.1 Total Intake and Output 11/10/24 11/10/24 11/11/24 15:00 23:00 07:00 Intake Total 50 ml 400 ml 360 ml Output Total 375 ml 120 ml Balance 50 ml 25 ml 240 ml medications Current Medications Medications Dose Ordered Sig/Vega Route Start Time Stop Time Status Last Admin Dose Admin Diagnostic Test (Pha) 1 strip ACHS 11/04/24 11:30 11/11/24 06:27 1 STRIP Dextrose 50 ml UD PRN IV 11/04/24 07:45 Sodium Chloride 10 ml Q8HR IV 11/04/24 14:00 11/11/24 06:01 10 ML Ondansetron HCl 4 mg Q4HP PRN IV 11/04/24 07:45 Morphine Sulfate 2 mg Q4HPRN PRN IV 11/04/24 07:45 11/11/24 01:36 2 MG Nitroglycerin 0.4 mg Q5MINP PRN SL 11/04/24 07:45 Morphine Sulfate 2 mg Q30M PRN IV 11/04/24 07:45 Pantoprazole Sodium 40 mg DAILY IV 11/04/24 10:00 11/10/24 10:56 40 MG Albuterol 2.5 mg Q4HPRN PRN NEB 11/04/24 07:45 11/11/24 06:16 2.5 MG Ipratropium [place] 0.5 mg Q6HWA NEB 11/04/24 12:00 11/11/24 06:16 0.5 MG Hydralazine HCl 10 mg Q6HP PRN IV 11/04/24 07:45 Insulin Human Regular ACHS SC 11/04/24 09:30 11/10/24 22:29 3 UNITS Vancomycin HCl 150 ml @ 150 mls/hr Q10H IV 11/04/24 11:00 Cancel Thiamine HCl 100 mg DAILY PO 11/06/24 10:00 11/09/24 10:36 100 MG Folic Acid 1 mg DAILY PO 11/06/24 10:00 11/09/24 10:36 1 MG Enteral Nutritional Formula 240 ml TIDWM PO 11/05/24 18:00 11/10/24 18:00 240 ML Lactulose 30 ml Q6HR PO 11/06/24 00:00 11/11/24 06:01 30 ML Ertapenem 1 gm/ Sodium Chloride 50 ml @ 100 mls/hr DAILY IV 11/06/24 10:00 11/10/24 10:56 100 MLS/HR Insulin Glargine 15 units DAILY@1000 SC 11/10/24 10:00 11/10/24 10:00 15 UNITS Examination Examination General Appearance: Alert, Oriented X3, Cooperative, No acute distress HEENT: EOMI Respiratory: Clear to auscultation, Normal air movement Cardiovascular: Regular rate, Normal S1, Normal S2 Abdominal: Normal bowel sounds Extremities: No cyanosis, No edema, Normal pulses, No tenderness/swelling Skin: No rashes, No breakdown Neuro: Normal speech, Strength at 5/5 X4 ext, Normal tone, Sensation intact, Cranial nerves 3-12 NL, Reflexes 2+ laboratory and microbiology Laboratory Tests 11/11/24 06:40 Test 11/11/24 06:40 Range/Units Serum Glucose 125 #H 74-106 mg/dL Microbiology Date/Time Source Procedure Growth Status 11/04/24 10:44 Voided Urine Urine Culture - Final Klebsiella pneumoniae - ESBL Complete 11/04/24 03:50 Blood Blood Culture - Final NO GROWTH AFTER 5 DAYS OF INCUBATION. Complete Problem List/Assessment/Plan Problem List/Assessment/Plan Acute metabolic encephalopathy likely multifactorial due to hyperammonemia due to liver cirrhosis ,?sepsis from UTI vs ?pneumonia - improving Head CT showed no acute intracranial abnormalities. Patient currently on his baseline mentation Repeat Ammonia levels Lactulose oral 45 q.6 hours Sepsis likely due to UTI vs pneumonia - improving Currently on adjusted IV antibiotics Ordered pancultures, Klebsiella pneumoniae ESBL positive UTI Acute complicated UTI which is ESBL positive Urine culture positive for Klebsiella pneumoniae ESBL Currently under adjusted IV antibiotic Likely aspiration pneumonia, improved CXR showed patchy opacities throughout the right lung. Acute hypoxic respiratory failure likely due to above, resolving Required oxygen therapy on admission. Currently on room air Alcoholic Liver cirrhosis Patient currently is abstinent from alcohol Meld score 12 (low mortality) GI specialist on board. Liver ultrasound showed heterogeneous coarse echotexture of liver Transaminitis due to liver cirrhosis Treat underlying condition Hyperammonemia due to liver cirrhosis Continue with lactulose 45 mL p.o. 4 times daily Anemia and thrombocytopenia likely due to above Monitor Uncontrolled type 2 DM with HbA1c 11.6 On insulin sliding scale Continue with Lantus 15 U SC daily Hypertension Hydralazine 10 mg IV q.6h p.r.n. Patient is hypertension controlled with diet Severe malnutrition Ordered dietary consult Case discussed with Dr. Tolentino Goals of care discussed with the patient for 33 minutes Code status: Full code Plan discussed with: Patient My Orders My Orders Orders - CLARY SALGADO RESIDENT Procedure Category Date Status Time Head Without Contrast CT 11/10/24 Resulted 11:05 Complete Blood Count LAB 11/11/24 In Process 05:44 Dietary Evaluation Review Comments: Pt is asking for food, has an appetite to eat (the refusing food>3 days is resolved), encourage PO intake and monitor intake to meet 75% of his needs. Consider CCHO-60 diet for improved DM controll. Avoid alcohol Expected Outcomes/Goals: improved nutrition related lab values. Date of Service: Nov 11, 2024 Billing Provider: MARTINA TOLENTINO MD Common Visit Codes: [id number] INP/OBS CARE(HIGH) CLARY SALGADO RESIDENT Nov 11, 2024 07:46 MARTINA TOLENTINO MD Nov 11, 2024 19:35
[2024-11-11] MEDS: LACTULOSE 20Gm/30ML SOLN PO SCH (12:48)
--- NOTE | 2024-11-11 18:43 | DVHPN2 ---
Progress Note - Dictate Date Seen: Nov 11, 2024 Medical Necessity Reason Pt with a Central, PICC or Fol: Yes The following are medically ne: Suazo Catheter Subjective Patient had moderate altered level of consciousness yesterday His ammonia level was against slightly elevated Today patient is clinically slightly improved There was no nausea vomiting or GI bleeding Persistent elevation in LFTs ESBL in Urine Had midline catheter placed on IV antibiotics Patient underwent wound care for his sacral area His respiratory status is improved he is refusing albuterol vital signs Vital Sign Date Time Temp Pulse Resp B/P (MAP) Pulse Ox O2 Delivery O2 Flow Rate FiO2 11/11/24 17:00 98.9 95 18 126/61 (82) 98 98.9 11/11/24 11:51 Room Air* 0 21 Total Intake and Output 11/10/24 11/10/24 11/11/24 15:00 23:00 07:00 Intake Total 50 ml 400 ml 360 ml Output Total 375 ml 120 ml Balance 50 ml 25 ml 240 ml medications Current Medications Medications Dose Ordered Sig/Vega Route Start Time Stop Time Status Last Admin Dose Admin Diagnostic Test (Pha) 1 strip ACHS 11/04/24 11:30 11/11/24 17:13 1 STRIP Dextrose 50 ml UD PRN IV 11/04/24 07:45 Sodium Chloride 10 ml Q8HR IV 11/04/24 14:00 11/11/24 15:14 10 ML Ondansetron HCl 4 mg Q4HP PRN IV 11/04/24 07:45 Morphine Sulfate 2 mg Q4HPRN PRN IV 11/04/24 07:45 11/11/24 01:36 2 MG Nitroglycerin 0.4 mg Q5MINP PRN SL 11/04/24 07:45 Morphine Sulfate 2 mg Q30M PRN IV 11/04/24 07:45 Pantoprazole Sodium 40 mg DAILY IV 11/04/24 10:00 11/11/24 09:23 40 MG Albuterol 2.5 mg Q4HPRN PRN NEB 11/04/24 07:45 11/11/24 06:16 2.5 MG Ipratropium [place] 0.5 mg Q6HWA NEB 11/04/24 12:00 11/11/24 06:16 0.5 MG Hydralazine HCl 10 mg Q6HP PRN IV 11/04/24 07:45 Insulin Human Regular ACHS SC 11/04/24 09:30 11/11/24 17:24 3 UNITS Vancomycin HCl 150 ml @ 150 mls/hr Q10H IV 11/04/24 11:00 Cancel Thiamine HCl 100 mg DAILY PO 11/06/24 10:00 11/11/24 09:38 100 MG Folic Acid 1 mg DAILY PO 11/06/24 10:00 11/11/24 09:37 1 MG Enteral Nutritional Formula 240 ml TIDWM PO 11/05/24 18:00 11/11/24 17:26 240 ML Ertapenem 1 gm/ Sodium Chloride 50 ml @ 100 mls/hr DAILY IV 11/06/24 10:00 11/11/24 09:23 100 MLS/HR Insulin Glargine 15 units DAILY@1000 SC 11/10/24 10:00 11/11/24 10:00 15 UNITS Lactulose 45 ml Q6HR PO 11/11/24 12:00 11/11/24 17:26 45 ML objective Pt is lying on bed awake NAD General Appearance: Confused, Oriented X2, Cooperative, mild distress HEENT: Atraumatic, Mucous membranes dry Respiratory: decreased breath sounds right-sided Cardiovascular: Regular rate, Normal S1, Normal S2, No murmurs Abdominal: Active bowel sounds, Soft, no distention, no tenderness Extremities: No edema, Normal pulses, No tenderness/swelling Skin: No Significant rash, except past surgical scars Neuro: Normal speech, sensorimotor deficits none laboratory and microbiology Laboratory Tests 11/11/24 06:40 Test 11/11/24 06:40 Range/Units Serum Glucose 125 #H 74-106 mg/dL Problems(with codes): (1) Chronic alcoholism (2) Dehydration (3) Elevated liver enzymes (4) Altered mental status (5) Alcoholic cirrhosis (6) Generalized weakness (7) Hepatic encephalopathy (8) UTI (urinary tract infection) Prognosis Plan Patient's lactulose has again been increase Patient will likely need to be maintained on lactulose 30 mL p.o. twice a day Rifaximin 550 mg p.o. twice a day Monitor labs ; awaiting placement at SNF Advance diet as tolerated ; discontinue alcohol His MELD score is 12 points at this time continue supportive care Dietary Evaluation Review Comments: Pt is asking for food, has an appetite to eat (the refusing food>3 days is resolved), encourage PO intake and monitor intake to meet 75% of his needs. Consider CCHO-60 diet for improved DM controll. Avoid alcohol Expected Outcomes/Goals: improved nutrition related lab values. Plan discussed with: Patient, Spouse (Nurse), Other (Sitter) TREVIN PATEL MD Nov 11, 2024 18:43
[2024-11-12] VITALS (14 sets, daily range): BP systolic 96–126; BP diastolic 50–67; PULSE 81–98; RESP 14–20; TEMP 98.5–98.9; O2SAT 96–100
[2024-11-12 06:59] LABS: Anion Gap 7 (5-15); Carbon Dioxide 27 mmol/L (20-31); Potassium 4.7 mmol/L (3.5-5.1); Sodium 141 mmol/L (136-145)
[2024-11-12 07:00] LABS: Chloride 107 mmol/L (98-107)
[2024-11-12 07:18] LABS: Glucose 158 mg/dL (74-106)
[2024-11-12 07:23] LABS: Basophils # (auto) 0 10 ^3/uL (0-0.2); Basophils % (auto) 0.8 % (0.0-2.0); Eosinophils # (auto) 0.3 10 ^3/uL (0-0.8); Eosinophils % (auto) 4.6 % (0.0-7.0); Hematocrit 24.8 % (41.0-53.0); Hemoglobin 8.5 g/dL (13.5-17.5); Lymphocytes # (auto) 1.5 10 ^3/uL (0.4-5.4); Mean Corpuscular Hemoglobin 33.5 pg (28.0-32.0); Mean Corpuscular Hgb Conc. 34.4 g/dL (32.0-36.0); Mean Corpuscular Volume 97.5 fL (80.0-100.0); Monocytes # (auto) 0.6 10 ^3/uL (0-1.3); Monocytes % (auto) 9.6 % (0.0-12.0); Neutrophils # (auto) 3.8 10 ^3/uL (1.6-8.6); Platelet Count (auto) 129 10^3/uL (140-450); Red Blood Cells 2.55 10^6/uL (4.5-5.90); Red Cell Distribution Width 17.3 % (11.8-14.3); White Blood Cell 6.3 10^3/uL (4.4-10.8)
[2024-11-12 07:34] LABS: BUN/Creatinine Ratio 24.5 (10.0-20.0); Blood Urea Nitrogen 12 mg/dL (9-23)
[2024-11-12] MEDS: rifAXIMin 550 MG TAB PO SCH (09:40)
[2024-11-12] MEDS: LACTULOSE 20Gm/30ML SOLN PO SCH (09:41)
--- NOTE | 2024-11-12 15:48 | DVHPNRES ---
Progress Note Date Seen: Nov 12, 2024 Resident Creating Document: CLARY SALGADO RESIDENT Medical Necessity Reason Pt with a Central, PICC or Fol: Yes The following are medically ne: Suazo Catheter Subjective Review of Systems Theo Lora is a 59-year-old male patient who presents to the ED via EMS from nursing facility with the chief complaints fever, cough and altered mental status . Patient is poor historian, spoke with his daughter, reported patient has been having fever, shortness of breath, cough with altered mental status. Her daughter reported he will get confused whenever his ammonia is high and he is being sick for last 4 months. Patient recently discharged from this facility after treating for hepatic encephalopathy. Per her daughter this is not patient's baseline. Denies chest pain, diarrhea, nausea, vomiting, abdominal pain and other acute associated symptoms. Past medical history: Alcoholic Liver cirrhosis, HTN, type 2 DM, chronic cognitive impairment Surgical history: Denies Family history: Reviewed, noncontributory Social history: Lives in nursing facility. 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 Denies current tobacco, alcohol and other drug abuse Allergies: No known allergies Patient seen and examined at the bedside. Patient is alert and oriented x3. He denies any acute complaint at this time. At the bedside the patient reports no abdominal pain or musculoskeletal pain, which he had mentioned experiencing last night as generalized mild discomfort. He notes states he is feeling well. The patient was initially prepared for discharge to SNF, however, discharge was held due to his clinical status . Today, we will continue to monitor his ammonia levels, which have improved. The patient will remain on lactulose therapy and rifaximin 550 po as part his management plan. transferred to [facility] at 9am 11/13/2024. Review of systems Constitutional: No: Fever, Chills, Sweats. Eyes: No: Pain, Vision change, Conjunctivae inflammation, Eyelid inflammation, Other, Redness ENT: No: Ear pain, Ear discharge, Nose pain, Nose discharge, Nose congestion, Mouth pain, Mouth swelling, Throat pain, Throat swelling, Other Respiratory: No Wheezing, Hemoptysis, Pleuritic Pain, Sputum, Wheezing, Other Cardiovascular: No: Chest Pain, Palpitations, Orthopnea, Paroxysmal Noc. Dyspnea, Edema, Lt Headedness, Other Gastrointestinal: No: Nausea, Vomiting, Abdominal Pain, Diarrhea, Constipation, Melena, Hematochezia, Other Musculoskeletal: No: other, neck pain, shoulder pain, arm pain, back pain, hand pain, leg pain, foot pain Neurological:; use: Mild confusion, change in speech No: Incoordination,Seizures Objective vital signs Vital Sign Date Time Temp Pulse Resp B/P (MAP) Pulse Ox O2 Delivery O2 Flow Rate FiO2 11/12/24 11:53 81 14 100 11/12/24 09:00 98.9 117/62 (80) 98.9 11/12/24 08:00 Room Air* 0 21 Total Intake and Output 11/11/24 11/11/24 11/12/24 15:00 23:00 07:00 Intake Total 100 ml 2000 ml 300 ml Output Total 1300 ml 500 ml Balance 100 ml 700 ml -200 ml medications Current Medications Medications Dose Ordered Sig/Vega Route Start Time Stop Time Status Last Admin Dose Admin Diagnostic Test (Pha) 1 strip ACHS 11/04/24 11:30 11/12/24 11:30 1 STRIP Dextrose 50 ml UD PRN IV 11/04/24 07:45 Sodium Chloride 10 ml Q8HR IV 11/04/24 14:00 11/12/24 14:25 10 ML Ondansetron HCl 4 mg Q4HP PRN IV 11/04/24 07:45 Morphine Sulfate 2 mg Q4HPRN PRN IV 11/04/24 07:45 11/11/24 21:51 2 MG Nitroglycerin 0.4 mg Q5MINP PRN SL 11/04/24 07:45 Morphine Sulfate 2 mg Q30M PRN IV 11/04/24 07:45 Pantoprazole Sodium 40 mg DAILY IV 11/04/24 10:00 11/12/24 09:38 40 MG Albuterol 2.5 mg Q4HPRN PRN NEB 11/04/24 07:45 11/12/24 11:46 2.5 MG Ipratropium [place] 0.5 mg Q6HWA NEB 11/04/24 12:00 11/12/24 11:46 0.5 MG Hydralazine HCl 10 mg Q6HP PRN IV 11/04/24 07:45 Insulin Human Regular ACHS SC 11/04/24 09:30 11/12/24 12:11 4 UNITS Vancomycin HCl 150 ml @ 150 mls/hr Q10H IV 11/04/24 11:00 Cancel Thiamine HCl 100 mg DAILY PO 11/06/24 10:00 11/12/24 09:40 100 MG Folic Acid 1 mg DAILY PO 11/06/24 10:00 11/12/24 09:40 1 MG Enteral Nutritional Formula 240 ml TIDWM PO 11/05/24 18:00 11/12/24 12:11 240 ML Ertapenem 1 gm/ Sodium Chloride 50 ml @ 100 mls/hr DAILY IV 11/06/24 10:00 11/12/24 09:41 100 MLS/HR Insulin Glargine 15 units DAILY@1000 SC 11/10/24 10:00 11/12/24 09:51 15 UNITS Lactulose 30 ml BID PO 11/12/24 10:00 11/12/24 09:41 30 ML Rifaximin 550 mg BID PO 11/12/24 10:00 11/12/24 09:40 550 MG Examination General Appearance: Alert, Oriented X3, Cooperative, No acute distress Respiratory: Clear to auscultation, Normal air movement Cardiovascular: Regular rate, Normal S1, Normal S2 Abdominal: Normal bowel sounds Extremities: No cyanosis, No edema, Normal pulses, No tenderness/swelling Skin: No rashes, No breakdown Neuro: Normal speech, Strength at 4/5 X4 ext, Normal tone, Sensation intact, Reflexes 2+ laboratory and microbiology Laboratory Tests 11/12/24 05:09 Test 11/12/24 05:09 Range/Units Serum Glucose 158 H 74-106 mg/dL Microbiology Date/Time Source Procedure Growth Status 11/04/24 10:44 Voided Urine Urine Culture - Final Klebsiella pneumoniae - ESBL Complete 11/04/24 03:50 Blood Blood Culture - Final NO GROWTH AFTER 5 DAYS OF INCUBATION. Complete Problem List/Assessment/Plan Problem List/Assessment/Plan Acute metabolic encephalopathy likely multifactorial due to hyperammonemia due to liver cirrhosis ,?sepsis from UTI vs ?pneumonia - improving Head CT showed no acute intracranial abnormalities. Patient currently on his baseline mentation Repeat Ammonia levels Lactulose oral 45 q.6 hours Sepsis likely due to UTI vs pneumonia - improving Currently on adjusted IV antibiotics Ordered pancultures, Klebsiella pneumoniae ESBL positive UTI Acute complicated UTI which is ESBL positive Urine culture positive for Klebsiella pneumoniae ESBL Currently under adjusted IV antibiotic Likely aspiration pneumonia, improved CXR showed patchy opacities throughout the right lung. Acute hypoxic respiratory failure likely due to above, resolving Required oxygen therapy on admission. Currently on room air Alcoholic Liver cirrhosis Patient currently is abstinent from alcohol Meld score 12 (low mortality) GI specialist on board. Liver ultrasound showed heterogeneous coarse echotexture of liver Transaminitis due to liver cirrhosis Treat underlying condition Hyperammonemia due to liver cirrhosis Continue with lactulose 45 mL p.o. 4 times daily Anemia and thrombocytopenia likely due to above Monitor Uncontrolled type 2 DM with HbA1c 11.6 On insulin sliding scale Continue with Lantus 15 U SC daily Hypertension Hydralazine 10 mg IV q.6h p.r.n. Patient is hypertension controlled with diet Severe malnutrition Ordered dietary consult Case discussed with Dr. Tolentino Goals of care discussed with the patient for 33 minutes Code status: Full code Plan discussed with: Patient, Spouse My Orders My Orders Orders - CLARY SALGADO RESIDENT Procedure Category Date Status Time Dietary NOTICE 11/11/24 Transmitted Recommendations 15:59 Lactulose Oral PHA 11/12/24 In Process 10:00 Rifaximin (Xifaxan) PHA 11/12/24 In Process 10:00 Discharge DISCHARGE 11/12/24 Transmitted 07:39 Dietary Evaluation Review Comments: Pt is asking for food, has an appetite to eat (the refusing food>3 days is resolved), encourage PO intake and monitor intake to meet 75% of his needs. Consider CCHO-60 diet for improved DM controll. Avoid alcohol Expected Outcomes/Goals: improved nutrition related lab values. Date of Service: Nov 12, 2024 Billing Provider: MARTINA TOLENTINO MD Common Visit Codes: [id number] INP/OBS CARE(MOD) CLARY SALGADO RESIDENT Nov 12, 2024 15:48 MARTINA TOLENTINO MD Nov 12, 2024 20:28
--- NOTE | 2024-11-12 20:37 | DVHPN2 ---
Progress Note - Dictate Date Seen: Nov 12, 2024 Medical Necessity Reason Pt with a Central, PICC or Fol: Yes The following are medically ne: Suazo Catheter Subjective Patient is clinically improved and less altered today His ammonia level was elevated to 104 There was no nausea vomiting or GI bleeding Persistent elevation in LFTs ESBL in Urine Had midline catheter placed on IV antibiotics Patient underwent wound care for his sacral area His respiratory status is improved he is refusing albuterol vital signs Vital Sign Date Time Temp Pulse Resp B/P (MAP) Pulse Ox O2 Delivery O2 Flow Rate FiO2 11/12/24 19:49 85 18 100 11/12/24 19:42 Room Air 0.0 11/12/24 19:42 21 11/12/24 17:00 98.8 118/56 (76) 98.8 Total Intake and Output 11/11/24 11/11/24 11/12/24 15:00 23:00 07:00 Intake Total 100 ml 2000 ml 300 ml Output Total 1300 ml 500 ml Balance 100 ml 700 ml -200 ml medications Current Medications Medications Dose Ordered Sig/Vega Route Start Time Stop Time Status Last Admin Dose Admin Diagnostic Test (Pha) 1 strip ACHS 11/04/24 11:30 11/12/24 17:16 1 STRIP Dextrose 50 ml UD PRN IV 11/04/24 07:45 Sodium Chloride 10 ml Q8HR IV 11/04/24 14:00 11/12/24 14:25 10 ML Ondansetron HCl 4 mg Q4HP PRN IV 11/04/24 07:45 Morphine Sulfate 2 mg Q4HPRN PRN IV 11/04/24 07:45 11/11/24 21:51 2 MG Nitroglycerin 0.4 mg Q5MINP PRN SL 11/04/24 07:45 Morphine Sulfate 2 mg Q30M PRN IV 11/04/24 07:45 Pantoprazole Sodium 40 mg DAILY IV 11/04/24 10:00 11/12/24 09:38 40 MG Albuterol 2.5 mg Q4HPRN PRN NEB 11/04/24 07:45 11/12/24 11:46 2.5 MG Ipratropium [place] 0.5 mg Q6HWA NEB 11/04/24 12:00 11/12/24 19:42 0.5 MG Hydralazine HCl 10 mg Q6HP PRN IV 11/04/24 07:45 Insulin Human Regular ACHS SC 11/04/24 09:30 11/12/24 17:23 6 UNITS Vancomycin HCl 150 ml @ 150 mls/hr Q10H IV 11/04/24 11:00 Cancel Thiamine HCl 100 mg DAILY PO 11/06/24 10:00 11/12/24 09:40 100 MG Folic Acid 1 mg DAILY PO 11/06/24 10:00 11/12/24 09:40 1 MG Enteral Nutritional Formula 240 ml TIDWM PO 11/05/24 18:00 11/12/24 18:01 240 ML Ertapenem 1 gm/ Sodium Chloride 50 ml @ 100 mls/hr DAILY IV 11/06/24 10:00 11/12/24 09:41 100 MLS/HR Insulin Glargine 15 units DAILY@1000 SC 11/10/24 10:00 11/12/24 09:51 15 UNITS Lactulose 30 ml BID PO 11/12/24 10:00 11/12/24 09:41 30 ML Rifaximin 550 mg BID PO 11/12/24 10:00 11/12/24 09:40 550 MG objective Pt is lying on bed awake NAD General Appearance: Confused, Oriented X2, Cooperative, mild distress HEENT: Atraumatic, Mucous membranes dry Respiratory: decreased breath sounds right-sided Cardiovascular: Regular rate, Normal S1, Normal S2, No murmurs Abdominal: Active bowel sounds, Soft, no distention, no tenderness Extremities: No edema, Normal pulses, No tenderness/swelling Skin: No Significant rash, except past surgical scars Neuro: Normal speech, sensorimotor deficits none laboratory and microbiology Laboratory Tests 11/12/24 05:09 Test 11/12/24 05:09 Range/Units Serum Glucose 158 H 74-106 mg/dL Problems(with codes): (1) Chronic alcoholism (2) Dehydration (3) Elevated liver enzymes (4) Altered mental status (5) Alcoholic cirrhosis (6) Generalized weakness (7) Hepatic encephalopathy (8) UTI (urinary tract infection) (9) Metabolic encephalopathy (10) Sepsis Prognosis Plan Patient's lactulose has again been increase Patient will likely need to be maintained on lactulose 30 mL p.o. twice a day Rifaximin 550 mg p.o. twice a day Monitor labs ; awaiting placement at SNF Advance diet as tolerated ; discontinue alcohol His MELD score is 12 points at this time continue supportive care Discharge planning tomorrow to [facility] Dietary Evaluation Review Comments: Pt is asking for food, has an appetite to eat (the refusing food>3 days is resolved), encourage PO intake and monitor intake to meet 75% of his needs. Consider CCHO-60 diet for improved DM controll. Avoid alcohol Expected Outcomes/Goals: improved nutrition related lab values. Plan discussed with: Patient TREVIN PATEL MD Nov 12, 2024 20:37
[2024-11-13 01:00] VITALS: BP 110/57; PULSE 92; RESP 18; TEMP 98.7; O2SAT 98
[2024-11-13 07:27] VITALS: PULSE 75; RESP 18; O2SAT 100
[2024-11-13 07:37] VITALS: PULSE 71; RESP 18; O2SAT 100
[2024-11-13 08:00] VITALS: PULSE 78; RESP 17; O2SAT 97
--- NOTE | 2024-11-13 08:37 | DVHPN2 ---
Progress Note - Dictate Date Seen: Nov 13, 2024 Medical Necessity Reason Pt with a Central, PICC or Fol: Yes The following are medically ne: Suazo Catheter Subjective Patient is clinically improved and responding appropriately He is eating his breakfast Blood sugar normal at 95 No other labs today ESBL in Urine Had midline catheter placed on IV antibiotics Patient underwent wound care for his sacral area His respiratory status is improved he is refusing albuterol vital signs Vital Sign Date Time Temp Pulse Resp B/P (MAP) Pulse Ox O2 Delivery O2 Flow Rate FiO2 11/13/24 01:00 98.7 92 18 110/57 (74) 98 98.7 11/12/24 20:00 Room Air* 0 21 Total Intake and Output 11/12/24 11/12/24 11/13/24 14:59 22:59 06:59 Intake Total 483 ml 520 ml 960 ml Output Total 850 ml 600 ml Balance 483 ml -330 ml 360 ml medications Current Medications Medications Dose Ordered Sig/Vega Route Start Time Stop Time Status Last Admin Dose Admin Diagnostic Test (Pha) 1 strip ACHS 11/04/24 11:30 11/13/24 06:59 1 STRIP Dextrose 50 ml UD PRN IV 11/04/24 07:45 Sodium Chloride 10 ml Q8HR IV 11/04/24 14:00 11/13/24 05:54 10 ML Ondansetron HCl 4 mg Q4HP PRN IV 11/04/24 07:45 Morphine Sulfate 2 mg Q4HPRN PRN IV 11/04/24 07:45 11/11/24 21:51 2 MG Nitroglycerin 0.4 mg Q5MINP PRN SL 11/04/24 07:45 Morphine Sulfate 2 mg Q30M PRN IV 11/04/24 07:45 Pantoprazole Sodium 40 mg DAILY IV 11/04/24 10:00 11/12/24 09:38 40 MG Albuterol 2.5 mg Q4HPRN PRN NEB 11/04/24 07:45 11/13/24 07:27 2.5 MG Ipratropium [place] 0.5 mg Q6HWA NEB 11/04/24 12:00 11/13/24 07:27 0.5 MG Hydralazine HCl 10 mg Q6HP PRN IV 11/04/24 07:45 Insulin Human Regular ACHS SC 11/04/24 09:30 11/12/24 22:00 8 UNITS Vancomycin HCl 150 ml @ 150 mls/hr Q10H IV 11/04/24 11:00 Cancel Thiamine HCl 100 mg DAILY PO 11/06/24 10:00 11/12/24 09:40 100 MG Folic Acid 1 mg DAILY PO 11/06/24 10:00 11/12/24 09:40 1 MG Enteral Nutritional Formula 240 ml TIDWM PO 11/05/24 18:00 11/12/24 18:01 240 ML Ertapenem 1 gm/ Sodium Chloride 50 ml @ 100 mls/hr DAILY IV 11/06/24 10:00 11/12/24 09:41 100 MLS/HR Insulin Glargine 15 units DAILY@1000 SC 11/10/24 10:00 11/12/24 09:51 15 UNITS Lactulose 30 ml BID PO 11/12/24 10:00 11/12/24 22:00 30 ML Rifaximin 550 mg BID PO 11/12/24 10:00 11/12/24 22:00 550 MG objective Pt is lying on bed awake NAD General Appearance: Confused, Oriented X2, Cooperative, mild distress HEENT: Atraumatic, Mucous membranes dry Respiratory: decreased breath sounds right-sided Cardiovascular: Regular rate, Normal S1, Normal S2, No murmurs Abdominal: Active bowel sounds, Soft, no distention, no tenderness Extremities: No edema, Normal pulses, No tenderness/swelling Skin: No Significant rash, except past surgical scars Neuro: Normal speech, sensorimotor deficits none laboratory and microbiology Laboratory Tests 11/12/24 05:09 Test 11/12/24 05:09 Range/Units Serum Glucose 158 H 74-106 mg/dL Problems(with codes): (1) Chronic alcoholism (2) Dehydration (3) Elevated liver enzymes (4) Altered mental status (5) Alcoholic cirrhosis (6) Generalized weakness (7) Hepatic encephalopathy (8) UTI (urinary tract infection) Prognosis Plan Patient will likely need to be maintained on lactulose 30 mL p.o. twice a day Rifaximin 550 mg p.o. twice a day Advance diet as tolerated ; discontinue alcohol His MELD score is 12 points at this time continue supportive care [facility] planning [facility] Dietary Evaluation Review Comments: Pt is asking for food, has an appetite to eat (the refusing food>3 days is resolved), encourage PO intake and monitor intake to meet 75% of his needs. Consider CCHO-60 diet for improved DM controll. Avoid alcohol Expected Outcomes/Goals: improved nutrition related lab values. Plan discussed with: Patient, Other (Sitter) TREVIN PATEL MD Nov 13, 2024 08:37
[2024-11-13 08:43] VITALS: BP 110/68; PULSE 98; RESP 19; TEMP 98.1; O2SAT 98
== END 2024-11-13 09:00 | DRG 720 ==
LOC: EDBD 20:37 → ER 20:37 → TELE 11-04 01:46 → TELE-WESTW 11-04 23:05 → WEST WING 11-09 11:06
PROVIDERS: ADMIT Internal Medicine Geriatric Medicine; ATTEND Internal Medicine Geriatric Medicine
PROC: 05HB33Z Insertion of Infusion Device into Right Basilic Vein, Percutaneous Approach (ICD-10-PCS; principal; 2024-11-06)
PROC: B54MZZA Ultrasonography of Right Upper Extremity Veins, Guidance (ICD-10-PCS; 2024-11-06)
PROC: 05H933Z Insertion of Infusion Device into Right Brachial Vein, Percutaneous Approach (ICD-10-PCS; 2024-11-10)
PROC: B54MZZA Ultrasonography of Right Upper Extremity Veins, Guidance (ICD-10-PCS; 2024-11-10)
DX: A41.9 Sepsis, unspecified organism (principal); J96.01 Acute respiratory failure with hypoxia; J69.0 Pneumonitis due to inhalation of food and vomit; G92.8 Other toxic encephalopathy; G93.41 Metabolic encephalopathy; E43 Unspecified severe protein-calorie malnutrition; E72.20 Disorder of urea cycle metabolism, unspecified; E87.20 Acidosis, unspecified; J18.9 Pneumonia, unspecified organism; K76.82 Hepatic encephalopathy; D69.6 Thrombocytopenia, unspecified; K70.30 Alcoholic cirrhosis of liver without ascites; D63.8 Anemia in other chronic diseases classified elsewhere; E86.0 Dehydration; R65.20 Severe sepsis without septic shock; N39.0 Urinary tract infection, site not specified; E11.9 Type 2 diabetes mellitus without complications; I10 Essential (primary) hypertension; R74.01 Elevation of levels of liver transaminase levels; Z80.0 Family history of malignant neoplasm of digestive organs; Z79.4 Long term (current) use of insulin; Z79.899 Other long term (current) drug therapy; Z68.29 Body mass index [BMI] 29.0-29.9, adult
CPT/HCPCS: 36415; 36600; 70450; 71045; 76705; 80048; 80053; 80202; 80307; 80320; 81001; 82140; 82805; 82962; 83605; 83690; 83735; 83880; 84100; 84443; 84484; 85007; 85025; 85027; 85379; 85610; 85730; 87040; 87086; 87088; 87186; 87426; 87804; 93005; 94640; 96365; 97110; 97116; 97163; 97530; 99291; G0378; J0692; J1335; J1815; J2185; J2470; J7060